=== PATIENT | male | born 1950 | race Caucasian/White ===

== ENCOUNTER 2017-03-28 07:19 | Emergency (ER) | payer BC, OTHER ==
[~2017-03-28] VITALS: Ht 180.3 cm; Wt 86.5 kg
[~2017-03-28 07:19] MED LIST: ASCO10003 PO; ATEN50TA8 PO; B-COTAB53 PO; CALC625T PO; CHOL1TAB42 PO; CIPR-255 PO; CYAN100020 PO; ECHI1CAP PO; GOLD1CAP PO; HYDR25TA4 PO; LORA10TA51 PO; LOSA50TA6 PO; MELO7.5T5 PO; MISCCAP80 PO; MULT-580 PO; MULTTAB58 PO; OMEG10007 PO; OMEP40CA PO; TRAM-10 PO; ZINC1TAB4 PO; [UNRECOGNIZED DRUG - CODE] PO
[2017-03-28 07:25] VITALS: TEMP 37.3; Ht 180.3 cm; Wt 86.5 kg
[2017-03-28] MEDS ORDERED: LOSA100T65 PO (07:47)
[2017-03-28] MEDS ORDERED: OMEP20TA PO (07:47)
[2017-03-28] MEDS ORDERED: MELO15TA4 PO (07:47)
[2017-03-28] MEDS ORDERED: ONDANSETRON INJ 2 MG/ML 2 ML VIAL IV STA (08:05)
[2017-03-28] MEDS ORDERED: SODIUM CHLORIDE 0.9% 1000ML 1,000 ML IV STA (08:05)
[2017-03-28] MEDS ORDERED: MoRPHine SULFATE 10 MG/ML CARP/VIAL IV PRN (08:15)
[2017-03-28] MEDS ORDERED: OPTIRAY 320 IV PRN (08:15)
[2017-03-28 08:29] LABS: MANUAL MICROSCOPIC REQUIRED? NO; URINE APPEARANCE CLEAR (CLEAR); URINE BILIRUBIN NEG (NEG); URINE COLOR YELLOW; URINE NITRITE NEG (NEG); UROBILINOGEN NEG (NEG)
[2017-03-28 08:30] LABS: REVIEW REQ? NO
[2017-03-28 08:33] LABS: BUN/CREATININE RATIO 15.5 (10-20); CALCIUM 9.1 mg/dl (8.5-10.1); CREATININE 1.1 mg/dl (0.60-1.40); POTASSIUM 4.1 mmol/L (3.5-5.1)
[2017-03-28 08:35] LABS: BASO % 0.6 %; BASO ABS # 0.04 K/uL (0-0.2); COMPLETE YES; EOS % 0.9 %; HEMATOCRIT 47.2 % (42-52); IG% 0.1 %; LYMPH % 15.5 %; LYMPH ABS # 1.07 K/uL (1.2-3.4); MEAN CELL VOLUME 86.8 fL (80-100); MEAN CORPUSCULAR HGB CONC 34.5 g/dl (32-36); MEAN PLATELET VOLUME 12.1 fL (7.4-10.4); MONO % 8.3 %; NEUT % 74.6 %; PLATELET COUNT 138 K/uL (130-400); RED BLOOD COUNT 5.44 M/uL (4.7-6.1)
[2017-03-28 10:26] VITALS: PULSE 64; O2SAT 95
--- NOTE | 2017-03-28 10:56 | DIAGNOSTIC IMAGING REPORT ---
ABD/PELVIS IV AND ORAL CONT HISTORY: 66 years Male diffuse abdominal pain with blood in stool. COMPARISON: CT 07/16/2016 TECHNIQUE: Multiple axial CT images of the abdomen and pelvis were obtained following the intravenous ministration of 94 mL Optiray 320. A dose lowering technique was used consistent with the principles of ALARA. Oral contrast also used. FINDINGS: There is minimal dependent subsegmental atelectasis within the lung bases. No pneumoperitoneum is identified. The inferior cardiac chambers are unremarkable. 4 mm low attenuating lesion of the hepatic dome is too small to characterize however appears unchanged from comparison suggesting benign etiology such as a hepatic cyst. The gallbladder, spleen and adrenal glands appear normal. There is moderate to severe pancreatic atrophy. 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 There is atherosclerotic plaquing at the origin of the celiac trunk which results in approximately 50% stenosis. No bulky retroperitoneal adenopathy. 10 mm cyst of the interpolar left kidney is seen with thin rim of peripheral calcification. Previously noted calculus within a distal left ureterocele is no longer identified. Urinary bladder is collapsed. Prostate is enlarged measuring up to 5.1 cm transversely. There is no bowel obstruction. Sigmoid diverticulosis is noted with mild inflammatory changes seen surrounding a diverticulum of the mid sigmoid colon nicely seen on image 351 of the axial series. Additionally there is mild wall thickening of the sigmoid colon within this region. No associated perforation or abscess is identified. Appendix is normal. Bones appear intact. Intervertebral disc space narrowing with posterior disc osteophyte complex formation noted at L5-S1. IMPRESSION: 1. Findings compatible with mild acute uncomplicated sigmoid diverticulitis. 2. Prostamegaly. 3. 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 4. Additional incidental findings as above. The above report was generated using voice recognition software. It may contain grammatical, syntax or spelling errors. Electronically signed by: Richard Guerra M.D. 03/28/2017 10:55 AM Dictated Date/Time: 03/28/2017 10:46 AM
[2017-03-28 11:45] VITALS: BP 126/83
[2017-03-28] MEDS ORDERED: CIPR1TAB10 PO (12:53)
[2017-03-28] MEDS ORDERED: METR-163 PO (12:53)
[2017-03-28] MEDS ORDERED: HYDR-5688 PO (12:53)
--- NOTE | 2017-03-30 10:36 | EMERGENCY ROOM VISIT NOTE ---
ED Visit Note First contact with patient: 07:47 Chief Complaint: Abdominal pain. History of Present Illness: Mr. Linder is a 66 year-old white male who ambulates into the ED complaining of bilateral lower quadrant abdominal pain. Historically patient reports GERD, gastric ulcer and status post umbilical hernia repair Patient reports a acute onset of right lateral lower quadrant abdominal pain that started approximately 13 ago. Since that time the pain has been constant but has waxed and waned in intensity. The pain is currently described as sharp with left-sided prominence. He rates his discomfort 8/10. The pain is radiating around the sides of the abdomen and into the lower back bilaterally. The pain worsens palpation, cough, ambulation and flexion at the waist. He reports mild relief when he is sitting still in a semireclined position. He has not taken any medications for pain prior to arrival at the hospital. This morning his bowel movement he noted small flecks of bright red blood blood in his formed stool and on the toilet tissue after wiping. Patient denies fevers, chills, sweats, skin eruptions, skin color changes, upper respiratory tract symptoms, shortness of breath, chest pain, nausea, vomiting, diarrhea, constipation, black/tarry stools, urinary symptoms, hematuria; patient does report he has chronic back pain but it is not exacerbated since the onset of the symptoms. Review of Systems: As noted above in history of present illness. All body systems were reviewed and found to be negative as noted above. Past Medical History: As previously noted, hypertension, bronchitis, kidney stones, benign prostatic hypertrophy, osteoarthritis and status post TURP, kidney stone extraction, tonsillectomy, and specificity of rotator cuff surgery and coccyx surgery. Current Medications: Allergies to Medications: Amitriptyline, erythromycin, ethanol, finasteride. Social History: Patient is currently employed; he lives alone and feels safe in his home environment; he denies tobacco use and admits to social alcohol use. Physical Examination: Vital Signs: Date Time Temp Pulse Resp B/P (MAP) Pulse Ox O2 Delivery O2 Flow Rate FiO2 03/28/17 11:45 126/83 03/28/17 10:26 64 95 03/28/17 10:21 69 96 03/28/17 10:16 65 95 03/28/17 10:11 125/75 03/28/17 08:39 69 94 03/28/17 08:34 66 96 03/28/17 08:31 136/83 03/28/17 08:29 72 92 03/28/17 08:27 73 03/28/17 08:24 73 16 146/89 96 03/28/17 08:24 72 95 03/28/17 08:23 146/89 03/28/17 07:25 37.3 76 18 145/93 97 Room Air GENERAL: 66-year-old male in mild distress due to pain, nontoxic-appearing, afebrile and hemodynamically stable. NEUROLOGICAL: Awake, alert and oriented to person, place and time. Answering questions appropriately and following commands. Normal gait. Good hand eye coordination. SKIN: Warm, dry and pink. No soft tissue eruptions or trauma noted. HEENT: Atraumatic and normocephalic. PERRLA. Sclera white and conjunctiva pink. Oral cavity moist and pink. Pharynx is nonerythematous or edematous. Speech normal. No lymphadenopathy. Trachea midline. No jugular venous distention. BACK: No tenderness over the bony spine. No CVA tenderness. THORAX: Lungs sounds are clear to auscultation and equal bilaterally with symmetrical chest wall. No wheezing, rales or rhonchi. No crepitus, tenderness , subcutaneous air or deformities noted. HEART: Regular rate and rhythm. No gallops, rubs or murmurs are appreciated. ABDOMEN: Flat and soft with moderate tenderness and guarding in the right lower and left lower quadrants. Positive bowel sounds in all quadrants. No guarding , rigidity or organomegaly. RECTAL: No external tags or hemorrhoids. Normal rectal tone. Palpable internal hemorrhoid at the 6 o'clock position. No fecal impaction. Prostrate was enlarged but nontender. Heme-negative stools. EXTREMITIES: Moves all extremities well on command and with purpose. All distal neurovascular statuses are intact and equal bilaterally. ED Course: Patient is assessed as noted above. Patient's medications were reviewed. Laboratory Testing: Test 03/28/17 07:40 03/28/17 08:20 Range/Units White Blood Count 6.90 4.8-10.8 K/uL Red Blood Count 5.44 4.7-6.1 M/uL Hemoglobin 16.3 14.0-18.0 g/dL Hematocrit 47.2 42-52 % Mean Corpuscular Volume 86.8 80-100 fL Mean Corpuscular Hemoglobin 30.0 25-34 pg Mean Corpuscular Hemoglobin Concent 34.5 32-36 g/dl Platelet Count 138 130-400 K/uL Mean Platelet Volume 12.1 7.4-10.4 fL Neutrophils (%) (Auto) 74.6 % Lymphocytes (%) (Auto) 15.5 % Monocytes (%) (Auto) 8.3 % Eosinophils (%) (Auto) 0.9 % Basophils (%) (Auto) 0.6 % Neutrophils # (Auto) 5.15 1.4-6.5 K/uL Lymphocytes # (Auto) 1.07 1.2-3.4 K/uL Monocytes # (Auto) 0.57 0.11-0.59 K/uL Eosinophils # (Auto) 0.06 0-0.5 K/uL Basophils # (Auto) 0.04 0-0.2 K/uL RDW Standard Deviation 40.6 36.4-46.3 fL RDW Coefficient of Variation 12.8 11.5-14.5 % Immature Granulocyte % (Auto) 0.1 % Immature Granulocyte # (Auto) 0.01 0.00-0.02 K/uL Sodium Level 141 136-145 mmol/L Potassium Level 4.1 3.5-5.1 mmol/L Chloride Level 105 98-107 mmol/L Carbon Dioxide Level 32 21-32 mmol/L Anion Gap 4.0 3-11 mmol/L Blood Urea Nitrogen 17 7-18 mg/dl Creatinine 1.10 0.60-1.40 mg/dl Est Creatinine Clear Calc Drug Dose 70.3 ml/min Estimated GFR () 80.6 Estimated GFR (Non- 69.6 BUN/Creatinine Ratio 15.5 10-20 Random Glucose 122 70-99 mg/dl Calcium Level 9.1 8.5-10.1 mg/dl Total Bilirubin 0.9 0.2-1 mg/dl Direct Bilirubin 0.2 0-0.2 mg/dl Aspartate Amino Transf (AST/SGOT) 15 15-37 U/L Alanine Aminotransferase (ALT/SGPT) 34 12-78 U/L Alkaline Phosphatase 77 45-117 U/L Total Protein 7.4 6.4-8.2 gm/dl Albumin 3.9 3.4-5.0 gm/dl Lipase 82 73-393 U/L Urine Color YELLOW Urine Appearance CLEAR CLEAR Urine pH 7.0 4.5-7.5 Urine Specific [place] 1.010 1.000-1.030 Urine Protein NEG NEG Urine Glucose (UA) NEG NEG Urine Ketones NEG NEG Urine Occult Blood NEG NEG Urine Nitrite NEG NEG Urine Bilirubin NEG NEG Urine Urobilinogen NEG NEG Urine Leukocyte Esterase NEG NEG Contrast Abdominal/Pelvic CT: Were reviewed by myself and read by the radiologist showing mild acute uncomplicated sigmoid diverticulitis, prostamegaly, unchanged peripheral calcified aneurysm dilatation of the proximal SMA at 1.2 cm, mild dependent atelectasis within the lung bases hepatic dome lesion too small to characterize, atherosclerotic plaque at the origin of the celiac rock which results in approximately a 50% stenosis, 10 mm cyst on the inferior pole the left kidney with peripheral rim calcification. Patient was hydrated with normal saline and patient received 6 mg of morphine IV for pain and 4 mg of Zofran IV. Patient was reassessed multiple times during his stay in the emergency department. Patient's case was reviewed with Dr. Pierce; we agreed on diagnostic approach, treatment, disposition and plan. Patient's request I did contact his PCP and review the case with him specifically the prescription of antibiotics and narcotics and we agreed on patient care. Patient was educated about today's findings and instructed on treatment plan; he verbalizes understanding and agreement with this plan. Clinical Impression: Acute diverticulitis. Decision-Making: Initially my differential diagnosis I considered diverticulitis , perforated viscus, constipation, acute appendicitis, cystitis and other causes. Disposition: Patient discharged home in stable condition; prior to departure he was reassessed and subjectively reported he was pain and symptom-free. Plan: Patient was prescribed ciprofloxacin, Flagyl and [place] and instructed on their use; patient's name was run through the state database and no red flags are noted and patient was given appropriate narcotic precautions. Patient was encouraged to follow-up with personal physician for recheck. Patient was encouraged return the ED for worsening symptoms, fevers, bloody stools or any new/concerning symptoms.
== END 2017-03-28 13:05 | disposition home or self-care (01) ==
LOC: C.EDB 07:19
DX: K57.92 Diverticulitis of intestine, part unspecified, without perforation or abscess without bleeding (principal); K21.9 Gastro-esophageal reflux disease without esophagitis; M54.9 Dorsalgia, unspecified; G89.29 Other chronic pain; I10 Essential (primary) hypertension; N40.0 Benign prostatic hyperplasia without lower urinary tract symptoms; Z87.442 Personal history of urinary calculi; M19.90 Unspecified osteoarthritis, unspecified site; I72.8 Aneurysm of other specified arteries; N28.1 Cyst of kidney, acquired

== ENCOUNTER → 2017-09-20 | Outpatient (CLI) | payer OTHER, MEDICARE ==
[~2017-09-20] MED LIST changes: -B-COTAB53 PO; -CALC625T PO; -CIPR-255 PO; +HYDR-5688 PO; +LOSA100T65 PO; -LOSA50TA6 PO; +MELO15TA4 PO; -MELO7.5T5 PO; +OMEP20TA PO; -OMEP40CA PO
--- NOTE | 2017-09-20 13:43 | DIAGNOSTIC IMAGING REPORT ---
KUB CLINICAL HISTORY: N20.0 [id number] COMPARISON STUDY: 10/08/2012 FINDINGS: There is no pathologic bowel dilatation. There are no calcifications suspicious for renal calculi. There is a stable left pelvic basin calcification likely representing a phlebolith. The 16 mm calcification which previously projected over the bladder is no longer visualized IMPRESSION: 1. No urinary tract calculi identified. Electronically signed by: Stiven Toledo M.D. 09/20/2017 1:41 PM Dictated Date/Time: 09/20/2017 1:41 PM
== END | disposition home or self-care (01) ==
LOC: C.RAD 13:09
PROVIDERS: ATTEND Nurse Practitioner Adult Health
DX: R31.9 Hematuria, unspecified (principal); Z87.442 Personal history of urinary calculi

== ENCOUNTER → 2018-04-23 | Outpatient (CLI) | payer OTHER, MEDICARE ==
[~2018-04-23] MED LIST changes: -HYDR-5688 PO; +MELO-84 PO; -MELO15TA4 PO
== END | disposition home or self-care (01) ==
LOC: C.LABSPEC 17:37
PROVIDERS: ATTEND Urology
DX: N20.0 Calculus of kidney (principal)

== ENCOUNTER 2018-11-24 10:44 | Inpatient (IN) ==
--- NOTE | 2018-11-18 09:39 | Anesthesiology Consultation ---
Date of Service November 18, 2018 Assessment & Plan Chart Review Chart Review: Acceptable Risk for Surgery (pending K level AM DOS) and Patient NOT seen in Pre Admission Testing Patient encouraged to increased dietary intake of potassium rich foods (bananas, spinach, broccoli, citrus fruits), between now and surgery date. CHECK K+ STAT AM DOS. History Surgery Operation Date: 11/24/18 12:10 Proposed Procedures p Left Shoulder Arthroscopy with Subacromial Decompression, Open Bicep Tenodesis, Open Excision Ganglion - Eliel Alexander MD Height/Weight Height: 5 ft 11 in Weight: 85.275 kg Allergies Allergy/AdvReac Type Severity Reaction Status Date / Time amitriptyline Allergy Unknown palpitation Verified 10/31/18 10:04 s erythromycin base Allergy Rash Verified 10/31/18 10:04 [From T-Stat] ethyl alcohol [From T-Stat] Allergy Rash Verified 10/31/18 10:04 finasteride AdvReac Unknown painful Verified 10/31/18 10:04 gynecomastia Medications Home Medications Medication Instructions Recorded Confirmed Last Taken Probiotic 1 tab PO QAM 10/31/18 10/31/18 Unknown amoxicillin 500 mg PO DAILY PRN 10/31/18 10/31/18 Unknown ascorbic acid (vitamin C) 1 g PO QAM 10/31/18 10/31/18 Unknown atenolol 50 mg PO QAM 10/31/18 10/31/18 Unknown biotin 1 mg PO Q OTHER DAY 10/31/18 10/31/18 Unknown cholecalciferol (vitamin D3) 5,000 unit PO QAM 10/31/18 10/31/18 Unknown [Vitamin D3] cyanocobalamin (vitamin B-12) 2,500 mcg SUBLINGUAL QAM 10/31/18 10/31/18 Unknown [Vitamin B-12] dexamethasone 0.5 mg PO DAILY PRN 10/31/18 10/31/18 Unknown echinacea 500 mg PO QAM 10/31/18 10/31/18 Unknown garlic 2 cap PO QAM 10/31/18 10/31/18 Unknown goldenseal 325 mg PO QAM 10/31/18 10/31/18 Unknown hydrochlorothiazide 25 mg PO QAM 10/31/18 10/31/18 Unknown lidocaine HCl 1 dose pk PO DAILY PRN 10/31/18 10/31/18 Unknown loratadine 10 mg PO QAM 10/31/18 10/31/18 Unknown losartan 100 mg PO QAM 10/31/18 10/31/18 Unknown meloxicam 15 mg PO QAM PRN 10/31/18 10/31/18 Unknown multivitamin with minerals 1 tab PO Q OTHER DAY 10/31/18 10/31/18 Unknown omega [id number] oil [Fish Oil] 1 cap PO QAM 10/31/18 10/31/18 Unknown omeprazole 40 mg PO BID 10/31/18 10/31/18 Unknown tramadol 1 - 2 tab PO DAILY PRN 10/31/18 10/31/18 Unknown zinc 100 mg PO QAM 10/31/18 10/31/18 Unknown Past Medical History Medical History Burning mouth syndrome Chronic back pain Diverticulosis GERD (gastroesophageal reflux disease) Hearing deficit [place] Hypertension Kidney stones Osteoarthritis Valvular heart disease Mild posterior mitral leaflet prolapse. Mild mitral regurgitation. Past Family History Family History Grandfather (Paternal) Family hx of colon cancer Grandfather (Maternal) Family hx of colon cancer Past Surgical History Surgical History History of arthroscopy of right shoulder History of cardiac cath 2007 - [facility] - cp - no stents/angioplasty History of colonoscopy W/ POLYPECTOMY History of cystoscopy W/ STONE EXTRACTION History of esophagogastroduodenoscopy (EGD) History of hand surgery LEFT History of hemorrhoidectomy History of surgery GREENLIGHT PROCEDURE History of surgery COCCYX SURGERY History of tonsillectomy History of transurethral resection of prostate History of umbilical hernia repair Social History Smoking Status: Former smoker Do You Dip or Chew Tobacco: No Smoking End Date: QUIT 1974 Hx Alcohol Use: Yes Alcohol type: beer, wine and hard liquor alcohol intake frequency: holidays/special occasions only Hx Substance Use: No substance use type: does not use Testing Electrocardiogram Date: 11/04/18 Findings: + NSR @ (79) NSIVCD. NS ST abnormality. No significant change from 12/27/15 EKG. Stress Test Date: 07/27/16 Type: exercise Resting EF: 55-60% The examination is adequate to evaluate the referral indication. The stress echo is negative for inducible ischemia. Blood pressure response to exercise was hypertensive. The stress test was terminated due to dyspnea. The left ventricular cavity size is normal. The LV wall thickness is borderline increased (concentric). There is mild posterior mitral leaflet prolapse. Mild mitral regurgitation is present. The mitral regurgitation jet is wall impinging directed behind the anterior mitral valve leaflet. Laboratory Results Laboratory Tests 11/04/18 11/04/18 08:18 08:18 WBC 6.69 Hgb 15.4 Hct 44.3 Plt Count 138 Sodium 140 Potassium 3.1 L Chloride 103 Carbon Dioxide 31 BUN 16 Creatinine 1.03 Glucose 103 H
--- NOTE | 2018-11-23 16:16 | History and Physical Report ---
DATE OF ADMISSION: 11/24/2018 CHIEF COMPLAINT: Chronic left shoulder pain. HISTORY OF PRESENT ILLNESS: This is a 68-year-old male patient of Dr. Alexander'ivan complaining of chronic left shoulder pain, longstanding, now progressively getting worse. He has failed conservative treatment including multiple intra-articular injections and [id number] medications. An MRI has confirmed biceps tendinopathy, impingement and a ganglion cyst in the bicipital groove. The patient wished to proceed with a left shoulder arthroscopic subacromial decompression and open biceps tenodesis with excision of ganglion cyst. PAST MEDICAL HISTORY: Mitral valve prolapse, hypertension, osteoarthritis, spine problems, neck problems, upper back problems, sciatica, acid reflux, dental issues and BPH. SOCIAL HISTORY: A 1 pack per day smoker for 10 years, quit in 1974. He is an occasional drinker. PAST SURGICAL HISTORY: Right shoulder surgery. FAMILY HISTORY: Noncontributory. REVIEW OF SYSTEMS: The patient complains of chronic left shoulder pain and weakness. Otherwise, denies any shortness of breath, chest pain, nausea, vomiting or any other joint complaints. MEDICATIONS: 1. Fish oil 500 mg daily. 2. Multivitamin daily. 3. Tramadol 50 mg as needed. 4. Atenolol 50 mg daily. 5. Meloxicam 15 mg daily. 6. Vitamin D3 5000 units daily. 7. Garlic 1000 mg 2 capsules daily. 8. Zinc gluconate 100 mg daily. 9. Probiotic daily. 10. Amoxicillin 500 mg 4 tablets prior to dental work only. 11. Vitamin C 1000 mg daily. 12. Vitamin B12 2500 mcg daily. 13. Dexamethasone 0.5 mL oral elixir 5 mL p.o. twice daily. 14. Echinacea 500 mg daily. 15. Goldenseal 325 mg daily. 16. Hydrochlorothiazide 25 mg daily. 17. Lidocaine viscous 2% mucosal solution 5 mL orally p.r.n. pain. 18. Claritin 10 mg daily. 19. Losartan 100 mg daily. 20. Omeprazole 40 mg twice daily. 21. Triamcinolone 0.1% dental paste apply to mucous membranes 2-3 times daily to affected area after meals. ALLERGIES: INCLUDE T-STAT AND AMITRIPTYLINE. PHYSICAL EXAMINATION: GENERAL: Well-developed, well-nourished 68-year-old male in no acute distress. He is alert and oriented x3 and pleasant. HEENT: Normocephalic, atraumatic. Extraocular motions are intact. Pupils are equal and reactive to light. HEART: Regular rate and rhythm, no murmurs. LUNGS: Clear. ABDOMEN: Soft, nontender, bowel sounds present. EXTREMITIES: Left shoulder reveals he has full range of motion with pain and crepitation. He has positive impingement maneuvering. He has positive Speed's and positive [place]'s test. He has 4+/5 strength again with pain and crepitation. NEUROLOGICAL: Neurovascularly, he is intact in his left upper extremity. DIAGNOSES: Left shoulder impingement, biceps tendinopathy and ganglion cyst. He also has a history of mitral valve prolapse, hypertension, osteoarthritis, spine problems, neck problems, upper back problems, sciatica, acid reflux, dental issues and benign prostatic hypertrophy. PLAN: The patient was advised of his diagnosis. Indications, risks, benefits, postop course have all been reviewed. The patient wishes to proceed with a left arthroscopic shoulder subacromial decompression and then an open biceps tenodesis with excision ganglion cyst. Necessary consent forms, preoperative testing and clearances will be obtained.
[~2018-11-24 10:44] MED LIST changes: -ASCO10003 PO; -ATEN50TA8 PO; +CEFAZOLIN 2000MG 2,000 MG/15 ML SYR IV SCH; -CHOL1TAB42 PO; -CYAN100020 PO; -ECHI1CAP PO; +EPINEPHrine INJ 1 MG/ML AMP ONE; -GOLD1CAP PO; -HYDR25TA4 PO; -LORA10TA51 PO; -LOSA100T65 PO; +LR 15ML/HR IV SCH; -MELO-84 PO; -MISCCAP80 PO; -MULT-580 PO; -MULTTAB58 PO; -OMEG10007 PO; -OMEP20TA PO; +ROPIVACAINE 0.5% 5 MG/ML 30 ML VIAL ONE; -TRAM-10 PO; -ZINC1TAB4 PO; -[UNRECOGNIZED DRUG - CODE] PO
--- NOTE | 2018-11-24 11:46 | History & Physical Bridge Note ---
Date of Service November 24, 2018 History & Physical Bridge Note I have examined the patient, reviewed the History & Physical and in the interval since the performance of the History & Physical I have noted the following changes of clinical significance: no changes noted
[2018-11-24] MEDS ORDERED: ePHEDrine sulfate 50 MG/ML AMP IV PRN (11:56)
[2018-11-24] MEDS ORDERED: fentaNYL citrate 100 MCG/2 ML VIAL IV PRN (11:56)
[2018-11-24] MEDS ORDERED: MEPERIDINE HCL 25 MG/ML CARP IV PRN (11:56)
[2018-11-24] MEDS ORDERED: PHENYLEPHRINE 100MCG/ML 5ML SYR IV PRN (11:56)
[2018-11-24] MEDS ORDERED: ONDANSETRON INJ 2 MG/ML 2 ML VIAL IV PRN ×2 (11:56→17:10)
[2018-11-24] MEDS ORDERED: LABETALOL HCL IV 5 MG/ML 20ML IV PRN (11:56)
[2018-11-24] MEDS ORDERED: ATROPINE SULFATE 0.1 MG/ML 10ML SYR IV PRN (11:56)
[2018-11-24] MEDS ORDERED: HYDROmorphone INJ 1 MG/ML SYRINGE IV PRN (11:56)
[2018-11-24] MEDS ORDERED: EpINEphrine HCL INJ 1 MG/ML 1ML SYRINGE ONE ×2 (11:58→14:39)
[2018-11-24] MEDS ORDERED: fentaNYL citrate 100 MCG/2 ML VIAL ONE (12:03)
[2018-11-24] MEDS ORDERED: MIDAZOLAM HCL 1 MG/ML 2ML VIAL ONE (12:04)
[2018-11-24] MEDS ORDERED: LIDOCAINE HCL 2% 2 ML VIAL/AMP(20MG/ML) INFIL ONE (12:06)
[2018-11-24] MEDS ORDERED: PROPOFOL IV EMULSION 10 MG/ML 20 ML VIAL IV ONE (12:06)
[2018-11-24] MEDS ORDERED: ROPIVACAINE 0.5% 5 MG/ML 30 ML VIAL ONE (13:05)
[2018-11-24] MEDS ORDERED: DEXAMETHASONE SOD INJ 4 MG/ML VIAL ONE (13:30)
[2018-11-24] MEDS ORDERED: ONDANSETRON INJ 2 MG/ML 2 ML VIAL ONE (13:31)
[2018-11-24] MEDS ORDERED: ePHEDrine sulfate 50 MG/ML SYR ONE (13:46)
--- NOTE | 2018-11-24 16:27 | Anesthesiology Progress Note ---
Date of Service November 24, 2018 Anesthesia Post Procedure Vital Signs Vital Signs: Temp Pulse Pulse Resp BP Pulse Ox 11/24/18 16:10 80 13 160/98 H 99 11/24/18 16:00 95 H 18 159/99 H 98 11/24/18 15:52 36.2 C L 87 13 168/110 H 97 11/24/18 11:29 36.8 C 67 20 148/93 H 97 Notes Mental Status: alert / awake / arousable Patient Amnestic to Procedure: Yes Nausea / Vomiting: adequately controlled Pain: adequately controlled Airway Patency, RR, SpO2: stable & adequate BP & HR: stable & adequate Hydration State: stable & adequate Anesthetic Complications: no major complications apparent Notes: Block working well in pacu
[2018-11-24] MEDS ORDERED: BISACODYL 10 MG SUPP PR PRN (17:10)
[2018-11-24] MEDS ORDERED: NALOXONE HCL 0.4 MG/1 ML VIAL/CARP IV PRN (17:10)
[2018-11-24] MEDS ORDERED: LIDOCAINE HCL VISCOUS SOLN 2% 15 ML UDC PO PRN (17:10)
[2018-11-24] MEDS ORDERED: MAGNESIUM HYDROXIDE SUSP 30 ML UDC PO PRN (17:10)
[2018-11-24] MEDS ORDERED: HYDROmorphone INJ 0.5 MG/0.5 ML SYR IV PRN (17:10)
[2018-11-24] MEDS ORDERED: dexAMETHasone 2 MG/20 ML UDP PO PRN (17:10)
[2018-11-24] MEDS: OXYCODONE HCL IR 5 MG TAB (IMMEDIATE RELEASE) PO PRN ×2 (18:28→19:14)
[2018-11-24] MEDS: DOCUSATE SODIUM 100 MG CAP PO SCH (20:14)
[2018-11-24] MEDS: SENNA 8.6 MG TAB PO SCH (20:14)
[2018-11-24] MEDS: PANTOprazole 40 MG TAB PO SCH (20:34)
[2018-11-24] MEDS: ACETAMINOPHEN 500 MG TAB PO SCH (21:24)
[2018-11-24] MEDS: CEFAZOLIN 2000MG 2,000 MG/15 ML SYR IV SCH (21:51)
[2018-11-24] MEDS: SODIUM CHLORIDE 0.9% 1000ML 1,000 ML IV SCH (22:01)
--- NOTE | 2018-11-25 01:44 | Operative Report ---
DATE OF OPERATION: 11/24/2018 INDICATION FOR PROCEDURE: The patient is a 68-year-old male with chronic left shoulder pain, failed conservative management. 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 He has some rotator cuff tendinopathy, but no tear. On MRI, he has significant biceps tenosynovitis and a large ganglion cyst adjacent to the biceps tendon in the anterior shoulder area. PREOPERATIVE DIAGNOSES: Chronic left shoulder pain, subacromial impingement, biceps tendinopathy and ganglion cyst adjacent to the biceps tendon sheath of left shoulder. POSTOPERATIVE DIAGNOSES: Left shoulder rotator cuff tendinopathy, partial tear of supraspinatus and subscapularis with biceps tendinopathy, biceps tenosynovitis and ganglion cyst of tendon sheath, biceps tendon and subacromial impingement, subacromial bursitis, degenerative tear of glenoid labrum and chondrocalcinosis of the AC joint, glenohumeral joint with calcium deposits in the superior labral area. PROCEDURE: Arthroscopy of the left shoulder with arthroscopic subacromial decompression, distal clavicle excision and debridement including subacromial bursa and rotator cuff, calcium deposits of subacromial bursa and a tenotomy of the biceps, followed by an open deltopectoral excision of the ganglion of tendon sheath and biceps tenodesis with soft tissue transferred to the conjoined tendon including biceps tenosynovectomy. SURGEON: Eliel Alexander MD MARKING STITCHER: Adis Smyth PA-C ANESTHESIA: Regional block and general. OPERATIVE PROCEDURE: The patient was taken to the operating room, anesthetized regional block and general anesthetic. He was placed in a 70-degree beachchair position [facility]. He had some kyphosis and we had to do some additional padding under his head. There is head and neck were secured to the table with the usual devices and then his lower extremities were all padded. His left upper extremity exam demonstrated good passive range of motion with a prominent AC joint. His left shoulder was then sterilely prepped and draped with ChloraPrep in usual sterile fashion. Then arthroscopy was initiated with a posterior arthroscopy portal in the soft spot, anterior portal in the rotator interval and to the AC joint, lateral portal in subacromial space. Intra-articular findings demonstrated he had some calcium deposits under the superior labrum, had some fraying and superior labrum with some tenosynovitis of the biceps tendon attachment to the labrum. He had some thickening of the biceps, but no significant fraying of the biceps in this area. The anterior inferior labrum had a small tear with some frayed anterior labrum tissue. He had some synovitis over the anterior labrum in the rotator interval area. The supraspinatus had a partial tear of the rotator cuff above the entire surface of the supraspinatus but it was about 4 mm deep. There were some undersurface flaps noted. The subscapularis had similar tendinopathy and partial tearing of the subscapularis tendon. There was no marked detachment of the tendon from the lesser tuberosity. The glenoid and humeral articular surfaces were good. In the subacromial space was marked chronic subacromial bursitis intact bursal surface of the rotator cuff. There was a significant impingement from the inferior AC joint spurs, hypertrophic AC joint arthritis and a type 2-3 acromion process anteriorly. Attention was first taken to the glenohumeral joint. I debrided the calcium deposit debrided the frayed areas of the glenoid labrum, debrided the undersurface tear of the supraspinatus, debrided the undersurface tear of the subscapularis, performed a tenotomy of the biceps. We did resect the calcium deposit from the superior labrum. In the subacromial space did a thorough subacromial bursectomy. Decompression was performed using a radiofrequency ablator to release the CA ligament off the spur of the anterior acromion. I ablated the inferior AC joint capsule, exposed 1 cm of distal clavicle and exposed the inferior AC joint spurs. A 5.5 bur was used to plane down the acromion to a type 1 flat shape and resected 1 cm of distal clavicle. I tried to release much of the superior and posterior capsule intact to maintain stability of the AC joint. Then we did a thorough bursectomy of the supraspinatus and infraspinatus. Then, the arthroscope instrumentation was removed and I went ahead and reprepped shoulder with Betadine and then the bed was placed in some Trendelenburg and padded Cabrera stand was brought in for support of the arm. Then, an anterior incision was made through the deltopectoral interval and then skin was incised sharply and subcutaneous flaps were elevated. The flaps were dissected out and retracted laterally with the deltoid. Pectoralis was retracted medially. We suctioned a lot of the edema fluid out and used multiple sponges to dry the wound satisfactorily so we could observe the anatomy. The patient had very massive ganglion cyst. It was about 3 x 2 cm in size. It was right over the biceps tendon sheath. This also had tenosynovitis as well. The biceps tendon sheath was opened up. I did a tenosynovectomy around the biceps and then I carefully dissected out the ganglion cyst so it was completely resected and from the tendon sheath. We did send it as a specimen. Then, the biceps tendon was brought down into the wound. Then we placed a traction suture into the end of the biceps, then did some further debridement of the synovium. Then I went ahead and removed any of the inflamed subscapularis bursa and then with a clear view of the conjoined tendon, we transferred the long head of the biceps to the short head conjoined tendon, biceps tendon. We placed #2 FiberWire sutures, suturing the long head of biceps to the short head conjoined tendon area, taking care not to do any deep stitches to avoid any injury to the musculocutaneous nerve. I placed 3 rows of sutures with very secure repair. The arm was taken through a passive range of motion and biceps tenodesis was secured. The arm was taken through range of motion and there was no impingement of the subscapularis or the rotator cuff. The deltopectoral interval was then allowed to fall back together anatomically. Then we just closed subcutaneous tissues with interrupted 2-0 Vicryl sutures and the skin with maggie and the portal sites with nylon sutures and sterile dressings were applied and sling immobilizer. Estimated blood loss was 15 mL. The complications were none. Specimen was a ganglion cyst and the patient tolerated the procedure well. DONNY Lim was my first assisted throughout, functioned as surgical supply assistant throughout the procedure participating in arm positioning, soft tissue retraction, performed the subcutaneous and skin closure, sling application and will participate in the postoperative care of the patient. I attest to the content of the Intraoperative Record and any orders documented therein. Any exception s are noted below.
[2018-11-25] MEDS: OXYCODONE HCL IR 5 MG TAB (IMMEDIATE RELEASE) PO PRN ×2 (03:43→15:20)
[2018-11-25] MEDS: ACETAMINOPHEN 500 MG TAB PO SCH ×3 (05:55→21:37)
[2018-11-25] MEDS: CEFAZOLIN 2000MG 2,000 MG/15 ML SYR IV SCH (05:55)
[2018-11-25] MEDS: SODIUM CHLORIDE 0.9% 1000ML 1,000 ML IV SCH (06:03)
--- NOTE | 2018-11-25 08:03 | Anesthesiology Progress Note ---
Date of Service November 25, 2018 Anesthesia Post Procedure Vital Signs Vital Signs: Temp Pulse Pulse Resp BP Pulse Ox 11/25/18 06:49 36.8 C 87 18 112/74 93 11/25/18 03:37 36.7 C 86 16 103/63 94 11/24/18 23:31 36.4 C L 87 16 121/75 93 11/24/18 20:00 36.6 C 87 16 125/70 95 11/24/18 19:00 36.6 C 85 16 119/74 95 11/24/18 18:00 36.9 C 85 16 133/84 93 11/24/18 17:29 36.5 C 78 16 146/84 H 97 11/24/18 16:45 76 12 152/96 H 93 11/24/18 16:30 36.3 C L 77 12 155/95 H 95 11/24/18 16:20 76 19 153/98 H 94 11/24/18 16:10 80 13 160/98 H 99 11/24/18 16:00 95 H 18 159/99 H 98 11/24/18 15:52 36.2 C L 87 13 168/110 H 97 11/24/18 11:29 36.8 C 67 20 148/93 H 97 Notes Mental Status: alert / awake / arousable Patient Amnestic to Procedure: Yes Nausea / Vomiting: adequately controlled Pain: adequately controlled Airway Patency, RR, SpO2: stable & adequate BP & HR: stable & adequate Hydration State: stable & adequate Anesthetic Complications: no major complications apparent and Pt Satisfied with anesthetic care
--- NOTE | 2018-11-25 08:10 | Orthopedic Progress Note ---
Date of Service November 25, 2018 Assessment & Plan (1) Shoulder pain: POD #1, Left shoulder scope, SAD, biceps tenotomy, OPEN biceps tenodesis and ganglion cyst removal. PT/ OT DVT proph- ASA Will Admit for pain control and add Oxycontin 10mg q12 hr. Subjective POD #1, Pain is main issue, states he cant get relief as the nerve block continues to wear off. Denies SOB, CP, N/V. Physical Exam 2 Vital Signs (Past 24 Hours): Last Vital Signs Temp 36.8 C 11/25/18 06:49 Pulse 87 11/25/18 06:49 Resp 18 11/25/18 06:49 BP 112/74 11/25/18 06:49 Pulse Ox 93 11/25/18 06:49 Physical Exam: Left shoulder dressings c/d/i, no drainage, elbow, fingers mobile, sling in tact, A&Ox3.
[2018-11-25] MEDS: DOCUSATE SODIUM 100 MG CAP PO SCH ×2 (08:32→20:43)
[2018-11-25] MEDS: LORATADINE 10 MG TAB PO SCH (08:32)
[2018-11-25] MEDS: MULTIVITAMIN TAB PO SCH (08:33)
[2018-11-25] MEDS: ASPIRIN 81 MG ECTAB PO SCH (08:34)
[2018-11-25] MEDS: PANTOprazole 40 MG TAB PO SCH ×2 (08:34→20:43)
[2018-11-25] MEDS: LOSARTAN POTASSIUM 50 MG TAB PO SCH (08:34)
[2018-11-25] MEDS: ATENOLOL 50 MG TABLET PO SCH (08:34)
[2018-11-25] MEDS: OXYCODONE HCL 10 MG TABCR (OXYCONTIN) PO SCH ×2 (08:37→20:43)
[2018-11-25] MEDS: SENNA 8.6 MG TAB PO SCH (20:43)
[2018-11-26] MEDS: OXYCODONE HCL IR 5 MG TAB (IMMEDIATE RELEASE) PO PRN (04:04)
[2018-11-26] MEDS: ACETAMINOPHEN 500 MG TAB PO SCH (06:07)
[2018-11-26 06:30] VITALS: BP 132/81; TEMP 98.1; O2SAT 95
--- NOTE | 2018-11-26 07:43 | Orthopedic Progress Note ---
Date of Service November 26, 2018 Assessment & Plan (1) Shoulder pain: POD #2, Left shoulder scope, SAD, biceps tenotomy, OPEN biceps tenodesis and ganglion cyst removal. PT/ OT DVT proph- ASA Plan for discharge to home today. Subjective Postop day 2 status post left shoulder arthroscopy with biceps tenodesis and ganglion cyst removal. Patient is sitting up at the bedside eating breakfast. Pain appears to be controlled. He has no overt complaints. Denies shortness of breath, chest pain, lightheadedness. Patient is hoping to go home today. Patient is currently on a pain management contract and we discussed his pain medication options upon discharge. Physical Exam Vital Signs (Past 24 Hours): Last Vital Signs Temp 36.7 C 11/26/18 06:29 Pulse 78 11/26/18 06:29 Resp 16 11/26/18 06:29 BP 132/81 11/26/18 06:29 Pulse Ox 95 11/26/18 06:29 Physical Exam: Incision is benign. Patient has good range of motion of his left wrist and fingers and denies any numbness or tingling in the hand. Sling is in place.
[2018-11-26] MEDS: OXYCODONE HCL 10 MG TABCR (OXYCONTIN) PO SCH (07:48)
[2018-11-26] MEDS: DOCUSATE SODIUM 100 MG CAP PO SCH (07:50)
[2018-11-26] MEDS: LORATADINE 10 MG TAB PO SCH (07:50)
[2018-11-26] MEDS: MULTIVITAMIN TAB PO SCH (07:51)
[2018-11-26] MEDS: LOSARTAN POTASSIUM 50 MG TAB PO SCH (07:53)
[2018-11-26] MEDS: PANTOprazole 40 MG TAB PO SCH (07:53)
[2018-11-26] MEDS: ASPIRIN 81 MG ECTAB PO SCH (07:53)
[2018-11-26] MEDS: ATENOLOL 50 MG TABLET PO SCH (07:53)
[2018-11-26] MEDS ORDERED: CEROVITE ADV FORMULA TAB PO SCH (09:00)
[2018-11-26 09:52] VITALS: PULSE 66
--- NOTE | 2018-11-27 11:34 | Discharge Summary ---
Date of Service December 03, 2018 Discharge Data Procedures Performed Operation Date: 11/24/18 12:20 Actual Procedures p Left Shoulder Arthroscopy with Subacromial Decompression, Distal Clavical Excision, Debridement of rotator cuff rear, calcium deposits and Subacromial Bursa, Open Bicep Tenodesis(Left) - Eliel Alexander MD s Open Excision Ganglion(Left) - Eliel Alexander MD
--- NOTE | 2018-12-02 04:36 | Discharge Summary ---
DISCHARGE DIAGNOSES: Chronic left shoulder rotator cuff tendinopathy, partial tear, supraspinatus and subscapularis with biceps tendinopathy, biceps tenosynovitis and ganglion cyst of the tendon sheath, subacromial bursitis. SECONDARY DIAGNOSES: Mitral valve prolapse, hypertension, history of degenerative spine disease, sciatica, gastroesophageal reflux disease, dental issues and benign prostatic hypertrophy. CONSULTATIONS: None. COMPLICATIONS: None. PROCEDURES: Arthroscopy of the left shoulder with arthroscopic subacromial decompression, distal clavicle excision and debridement including subacromial bursa and right rotator cuff, calcium deposits of subacromial bursa and tenotomy of the biceps, followed by open deltopectoral excision of the ganglion of the tendon sheath and biceps tenodesis with soft tissue transferred to the conjoined tendon including biceps tendon synovectomy by Dr. Alexander on 11/24/2018. BRIEF HISTORY: As dictated in the history and physical. HOSPITAL SUMMARY: The patient was admitted on the above-noted date and had above-noted surgery performed, which he tolerated well. On his first postoperative day, pain control was his main issue and stated he could not get relief and a nerve block was continued to wear off. He denies shortness of breath, chest pain, nausea or vomiting. Vital signs were stable. He was afebrile. Shoulder dressings were clean, dry and intact. He had no drainage. Fingers were mobile. Sling was intact. He was started on PT protocol, OxyContin 10 mg p.o. q. 12 hours was added to his pain regimen and he was remaining stable. By his second postoperative day, his pain appeared to be controlled. He had no overt complaints. Denied shortness of breath, chest pain or lightheadedness. He was hoping to go home. It was noted that he is currently on a pain management contract and we discussed his pain medication options upon discharge. Vital signs were stable. He was afebrile. Incision was benign. He has good range of motion of his left wrist and fingers and denied any numbness or tingling in the hand. A sling was in place. He was continued on his PT protocol and it was felt he could be discharged to home on 11/26/2018. For further review, please see chart. LABORATORY AND X-RAY DATA: As per chart. DISCHARGE INSTRUCTIONS: The patient was discharged home in satisfactory condition on 11/26/2018. Diet: Regular. Activity: Follow shoulder arthroscopy with or without distal clavicle excision instructions and special care instructions as noted. Follow up with Dr. Alexander in 2 weeks. The patient is to call for appointment if one has not been made for you. DISCHARGE MEDICATIONS: Acetaminophen 1000 mg p.o. q. 8 hours, aspirin 81 mg p.o. q.a.m., tramadol 50 mg p.o. q. 4-6 hours p.r.n. Resume home meds as listed and stop taking previous tramadol dosage.
== END 2018-11-26 10:37 | disposition home or self-care (01) | DRG 502 ==
LOC: ASU 10:44 → 3E 16:04

== ENCOUNTER 2022-12-04 12:48 | Observation (INO) ==
--- NOTE | 2022-11-28 14:17 | Anesthesiology Consultation ---
Date of Service November 28, 2022 Assessment & Plan (1) Encounter for pre-operative examination: COVID screening: Per assessment on 11/28: No known COVID-19 positive contacts or current COVID-19 related symptoms. Travel screen negative. Patient vaccinated. At surgeon discretion if preop Covid testing being done. Chart Review Chart Review: Acceptable Risk for Surgery and Patient NOT seen in Pre Admission Testing History Surgery Operation Date: 12/04/22 07:30 Proposed Procedures p TURP (Transurethral Resection Prostate) - Tapan Mooney MD Height/Weight Height: 5 ft 11 in Weight: 80.739 kg Allergies Allergy/AdvReac Type Severity Reaction Status Date / Time amitriptyline Allergy Intermediate heart Verified 11/28/22 12:48 palpitations finasteride AdvReac Intermediate painful Verified 11/28/22 12:48 gynecomastia Medications Home Medications Medication Instructions Recorded Confirmed Last Taken amoxicillin 500 mg tablet 500 mg PO DAILY PRN BEFORE DENTAL 10/31/18 11/28/22 Unknown PROCEDURES garlic 1,000 mg capsule 2 cap PO QAM 10/31/18 11/28/22 12/04/21 hydrochlorothiazide 25 mg tablet 25 mg PO QAM 10/31/18 11/28/22 12/04/21 losartan 100 mg tablet 100 mg PO QAM 10/31/18 11/28/22 12/05/21 06:00 meloxicam 15 mg tablet 15 mg PO DAILY PRN Pain 10/31/18 11/28/22 11/14/21 omega 8-szg-hfr-fish oil 1,000 mg 1 cap PO QAM 10/31/18 11/28/22 12/04/21 (120 mg-180 mg) capsule (Fish Oil) Lactobacillus 40-Bifidobact 1 cap PO QAM 10/05/19 11/28/22 12/04/21 3-S.thermophilus 100 billion cell capsule (Probiotic) ascorbic acid (vitamin C) 500 mg 500 mg PO QAM 05/11/20 11/28/22 12/03/21 tablet (Vitamin C) sucralfate 1 gram tablet 1 g PO QID PRN Acid Reflux 05/11/20 11/28/22 Unknown tramadol 50 mg tablet 50 mg PO Q4 PRN pain 05/11/20 11/28/22 12/05/21 06:00 atenolol 50 mg tablet 50 mg PO QAM 08/18/21 11/28/22 12/05/21 06:00 carboxymethylcellulose sodium 1 % 1 drp ophthalmic (eye) BID 12/04/21 11/28/22 12/05/21 06:00 eye liquid gel drops (Refresh Liquigel) multivitamin 1 tab PO QAM 05/10/22 11/28/22 Unknown aluminum hydrox-magnesium carb 95 15 ml PO DAILY PRN Abdominal Pain 05/22/22 11/28/22 Unknown mg-358 mg/15 mL oral suspension (Gaviscon) calcium polycarbophil 625 mg 1,250 mg PO QAM 05/22/22 11/28/22 Unknown tablet (FiberCon) diclofenac sodium 1 % topical gel 2 g topical QID 05/22/22 11/28/22 Unknown lifitegrast 5 % eye drops in a 1 drp ophthalmic (eye) BID 05/22/22 11/28/22 Unknown dropperette (Xiidra) baclofen 10 mg tablet 10 mg PO HS #90 tabs 11/27/22 11/28/22 Unknown dexlansoprazole 60 mg 60 mg PO Q2D 11/27/22 11/28/22 Unknown capsule,biphase delayed release (Dexilant) cholecalciferol (vitamin D3) 50 6,000 mcg PO QAM 11/28/22 11/28/22 Unknown mcg (2,000 unit) capsule (Vitamin D3) magnesium 500 mg tablet 500 mg PO QAM 11/28/22 11/28/22 Unknown methylsulfonylmethane 1,000 mg 2,000 mg PO QAM 11/28/22 11/28/22 Unknown tablet (MSM) Past Medical History Medical History BPH (benign prostatic hyperplasia) Chronic back pain Diverticulosis Elbow pain R/t elbow tendon (plan for future surgery). will need assistance to move on liter per PAT RN phone interview Gastric artery aneurysm Calcified/surgical intervention not recommended, monitored by [facility] GERD (gastroesophageal reflux disease) Hearing deficit [facility] Hematuria Hypertension Kidney stones Osteoarthritis Peptic ulcer disease hx Valvular heart disease Mild posterior mitral leaflet prolapse, Mild MR per 2016 stress echo Past Family History Family History Grandfather (Paternal) Family hx of colon cancer Grandfather (Maternal) Family hx of colon cancer Brother FHx: bladder cancer Other No family history of adverse response to anesthesia Past Surgical History Surgical History History of arthroscopy of right shoulder History of back surgery removal of tip of coccyx d/t a fracture History of cardiac cath 2007 - no stents History of colonoscopy W/ POLYPECTOMY History of cystoscopy W/ STONE EXTRACTION History of esophagogastroduodenoscopy (EGD) History of hand surgery LEFT History of hemorrhoidectomy History of surgery GREENLIGHT PROCEDURE History of surgery EUS performed 06/03/2020 @ [facility] History of surgery TIF procedure History of tonsillectomy History of transurethral resection of prostate History of umbilical hernia repair S/P arthroscopy of left shoulder S/P epidural steroid injection Social History Smoking Status: Former smoker tobacco type: cigarettes Do You Dip or Chew Tobacco: No Smoking End Date: at age 25 Hx Alcohol Use: Yes Alcohol type: beer, wine and hard liquor alcohol intake frequency: holidays/special occasions only Hx Substance Use: No substance use type: does not use Lab Results Anesthesia Preop Results Results Anesthesia Widget: WBC 5.83 K/ul (4.8-10.8) 11/28/22 Hgb 14.9 g/dl (14.0-18.0) 11/28/22 Hct 43.4 % (42.0-52.0) 11/28/22 Plt 129 K/uL (130-400) L 11/28/22 Na 139 mmol/L (136-145) 11/28/22 K 4.0 mmol/L (3.5-5.1) 11/28/22 Cl 104 mmol/L (98-107) 11/28/22 CO2 30 mmol/L (21-32) 11/28/22 BUN 19 mg/dl (6-23) 11/28/22 Creat 1.10 mg/dl (0.6-1.4) 11/28/22 Glucose Level 107 mg/dl (70-99(Fasting)) H 11/28/22 TSH 1.107 uIu/ml (0.300-4.500) 11/28/22 Testing Laboratory Results 11/23/22 URINE CULTURE- no growth Electrocardiogram Date: 11/23/22 NSR at 72bpm. Minimal voltage criteria for LVH, may be normal variant (R in aVL). Chest X-Ray Date: 11/23/22 FINDINGS: Lung volumes are normal. Lungs are clear. There is no pneumothorax or pleural effusion. Cardiac size is normal. Mediastinal contours are normal. There is no evidence for pulmonary edema. IMPRESSION: No acute cardiopulmonary findings. Stress Test Date: 07/27/16 Type: exercise Resting EF: 55-60% The examination is adequate to evaluate the referral indication. The stress echo is negative for inducible ischemia. Blood pressure response to exercise was hypertensive. The stress test was terminated due to dyspnea. The left ventricular cavity size is normal. The LV wall thickness is borderline increased (concentric). There is mild posterior mitral leaflet prolapse. Mild mitral regurgitation is present. The mitral regurgitation jet is wall impinging directed behind the anterior mitral valve leaflet.
[~2022-12-04 12:48] MED LIST changes: -CEFAZOLIN 2000MG 2,000 MG/15 ML SYR IV SCH; +CIPROFLOXACIN / D5W 400 MG/200 ML BAG IV SCH; -EPINEPHrine INJ 1 MG/ML AMP ONE; -ROPIVACAINE 0.5% 5 MG/ML 30 ML VIAL ONE
[2022-12-04] MEDS ORDERED: ePHEDrine sulfate 50 MG/ML AMP IV PRN (14:03)
[2022-12-04] MEDS ORDERED: ATROPINE SULFATE 0.1 MG/ML 10ML SYR IV PRN (14:03)
[2022-12-04] MEDS ORDERED: ONDANSETRON INJ 2 MG/ML 2 ML VIAL IV PRN (14:03)
--- NOTE | 2022-12-04 15:02 | History & Physical Report ---
Date of Service December 04, 2022 Assessment & Plan (1) Benign prostatic hyperplasia with urinary obstruction: Plan TURP risks, benefits, and expectations reviewed plan for overnight stay History of Present Illness Primary Care Provider: Scotty Locke MD Voiding dysfunction, lateral lobe hypertrophy here for TURP Allergies Allergy/AdvReac Type Severity Reaction Status Date / Time amitriptyline Allergy Intermediate heart Verified 12/04/22 13:17 palpitations finasteride AdvReac Intermediate painful Verified 12/04/22 13:17 gynecomastia Home Medications Medication Instructions Recorded Confirmed Type amoxicillin 500 mg tablet 500 mg PO DAILY PRN BEFORE DENTAL 10/31/18 12/04/22 History PROCEDURES garlic 1,000 mg capsule 2 cap PO QAM 10/31/18 12/04/22 History hydrochlorothiazide 25 mg tablet 25 mg PO QAM 10/31/18 12/04/22 History losartan 100 mg tablet 100 mg PO QAM 10/31/18 12/04/22 History meloxicam 15 mg tablet 15 mg PO DAILY PRN Pain 10/31/18 12/04/22 History omega 1-gxf-qwv-fish oil 1,000 mg 1 cap PO QAM 10/31/18 12/04/22 History (120 mg-180 mg) capsule (Fish Oil) Lactobacillus 40-Bifidobact 1 cap PO QAM 10/05/19 12/04/22 History 3-S.thermophilus 100 billion cell capsule (Probiotic) ascorbic acid (vitamin C) 500 mg 500 mg PO QAM 05/11/20 12/04/22 History tablet (Vitamin C) sucralfate 1 gram tablet 1 g PO QID PRN Acid Reflux 05/11/20 12/04/22 History tramadol 50 mg tablet 50 mg PO Q4 PRN pain 05/11/20 12/04/22 History atenolol 50 mg tablet 50 mg PO QAM 08/18/21 12/04/22 History carboxymethylcellulose sodium 1 % 1 drp ophthalmic (eye) BID 12/04/21 12/04/22 History eye liquid gel drops (Refresh Liquigel) multivitamin 1 tab PO QAM 05/10/22 12/04/22 History aluminum hydrox-magnesium carb 95 15 ml PO DAILY PRN Abdominal Pain 05/22/22 12/04/22 History mg-358 mg/15 mL oral suspension (Gaviscon) calcium polycarbophil 625 mg 1,250 mg PO QAM 05/22/22 12/04/22 History tablet (FiberCon) diclofenac sodium 1 % topical gel 2 g topical QID 05/22/22 12/04/22 History lifitegrast 5 % eye drops in a 1 drp ophthalmic (eye) BID 05/22/22 12/04/22 History dropperette (Xiidra) dexlansoprazole 60 mg 60 mg PO Q2D 11/27/22 12/04/22 History capsule,biphase delayed release (Dexilant) cholecalciferol (vitamin D3) 50 6,000 mcg PO QAM 11/28/22 12/04/22 History mcg (2,000 unit) capsule (Vitamin D3) magnesium 500 mg tablet 500 mg PO QAM 11/28/22 12/04/22 History methylsulfonylmethane 1,000 mg 2,000 mg PO QAM 11/28/22 12/04/22 History tablet (MSM) baclofen 10 mg tablet 10 mg PO HS #90 tabs 12/03/22 12/04/22 Rx vit [id number] D3-calc cit-Zn 3,000 PO DAILY 12/04/22 History Past Med/Surg History Medical History BPH (benign prostatic hyperplasia) Chronic back pain Diverticulosis Elbow pain R/t elbow tendon (plan for future surgery). will need assistance to move on liter per PAT RN phone interview Gastric artery aneurysm Calcified/surgical intervention not recommended, monitored by [facility] vascular GERD (gastroesophageal reflux disease) Hearing deficit [facility] Hematuria Hypertension Kidney stones Osteoarthritis Peptic ulcer disease hx Valvular heart disease Mild posterior mitral leaflet prolapse, Mild MR per 2016 stress echo Surgical History History of arthroscopy of right shoulder History of back surgery removal of tip of coccyx d/t a fracture History of cardiac cath 2007 - no stents History of colonoscopy W/ POLYPECTOMY History of cystoscopy W/ STONE EXTRACTION History of esophagogastroduodenoscopy (EGD) History of hand surgery LEFT History of hemorrhoidectomy History of surgery GREENLIGHT PROCEDURE History of surgery EUS performed 06/03/2020 @ [facility] History of surgery TIF procedure History of tonsillectomy History of transurethral resection of prostate History of umbilical hernia repair S/P arthroscopy of left shoulder S/P epidural steroid injection Family History Grandfather (Paternal) Family hx of colon cancer Grandfather (Maternal) Family hx of colon cancer Brother FHx: bladder cancer Other No family history of adverse response to anesthesia Social History Smoking Status: Former smoker Smoking End Date: at age 25; Second Hand Exposure: No; Do You Dip or Chew Tobacco: No; Tobacco Cessation Education Requested by Patient: No Hx Alcohol Use: Yes Alcohol type: beer, wine and hard liquor Hx Substance Use: No Preferred Language: Turkmen Communication Ability: Effective Art Appraiser Required: No Beliefs That Will Affect Care: None Current Living Situation: Alone Other Information That Helps Us Care for You: No Feels Safe at Home: Yes Safety Concerns: Feels Safe At This Time Assistive Devices: Denture - Upper and Glasses Physical Exam Constitutional: well developed and well nourished Neck: neck nontender Respiratory: normal respiratory effort; no respiratory distress and does not use accessory muscles Cardiovascular: Rate/Rhythm: regular rate Vessels: radial pulses present Extremities: no edema Gastrointestinal (Abdomen): Inspection/Auscultation: abdomen normal to inspection Percussion/Palpation: abdomen soft; abdomen nontender and no guarding Musculoskeletal: Head/Neck/Chest: normocephalic and head atraumatic Extremities: extremities normal to inspection Skin: no rashes and no lesions Trauma: no evidence of skin trauma Neurologic: awake; not obtunded Speech / Cognition: normal speech Motor/Sensory: no tremor Psychiatric: Orientation: alert and oriented x 3 Genitourinary: no CVA tenderness Lymphatic: no lymphadenopathy Results & Data Vital Signs (Past 12 Hours) Vital Signs Temp Pulse Resp BP Pulse Ox O2 Del Method 12/04/22 13:28 37.1 C 71 20 130/75 98 Room Air 12/04/22 13:28 Room Air
[2022-12-04] MEDS ORDERED: MIDAZOLAM HCL 1 MG/ML 2ML VIAL ONE (15:11)
[2022-12-04] MEDS ORDERED: PROPOFOL IV EMULSION 10 MG/ML 20 ML VIAL IV ONE ×2 (15:11→16:11)
[2022-12-04] MEDS ORDERED: LIDOCAINE 2% MPF LOCAL 5 ML VIAL ONE (15:11)
[2022-12-04] MEDS ORDERED: fentaNYL citrate PF 100 MCG/2 ML VIAL ONE (15:11)
[2022-12-04] MEDS ORDERED: FAMOTIDINE/PF 20 MG/2 ML VIAL IV ONE (15:36)
[2022-12-04] MEDS ORDERED: PHENYLEPHRINE HCL 10 MG/ML VIAL ONE (15:51)
[2022-12-04] MEDS ORDERED: DEXAMETHASONE SOD INJ 4 MG/ML VIAL ONE (15:51)
[2022-12-04] MEDS ORDERED: ONDANSETRON INJ 2 MG/ML 2 ML VIAL ONE (15:51)
--- NOTE | 2022-12-04 16:37 | Operative Report ---
PG Post Operative Report Pre & Post Diagnosis Operation Date: 12/04/22 14:40 Pre-Op Diagnosis: Benign Prostatic Hyperplasia with Urinary obstruction Post-Op Diagnosis: Benign Prostatic Hyperplasia with Urinary obstruction I identified the patient and participated in the time-out.: Yes Procedure Operation Date: 12/04/22 14:40 Actual Procedures p Transurethral Resection Prostate(Not Applicable) - Tapan Mooney MD Surgeon Tapan Mooney MD It Support Consultant none Estimated Blood Loss 0 Findings Consistent with Post-Op Diagnosis Specimens none Description of Procedure The patient was identified in the preoperative holding area, appropriate informed consents were reviewed and completed and the patient was transferred to the operative suite. Upon arrival, appropriate antibiotics and anesthesia were administered and the patient was placed in dorsal lithotomy position and prepped and draped in sterile fashion. To begin the case I passed a 27 Dominican resectoscope with 30 degree lens and visual obturator. Inspection revealed a healthy-appearing urethra. Upon entry into the prostatic urethra anatomy was quite distorted with substantial left- sided and the lateral lobe hypertrophy crossing the midline and obstructing the urethra. The bladder neck was quite high and there was some intravesical regrowth more from the right than the left. The bladder itself was heavily trabeculated but healthy in appearance. There were numerous prominent vessels and some active oozing from the surface of the prostate. Ureteral orifices were not readily apparent upon initial entry. Following my full inspection I began resecting the obstructing tissue utilizing a button electrode. I began with the bladder neck and then progressed into the main portion of the prostate. Ultimately I was able to treat the vast majority of the obstructive tissue and you have a widely patent prostatic urethra. Hemostasis was excellent. Of note, his ureteral orifices were identified towards the end of the case after resecting the intravesical portion of the prostate. He is relatively gaping left UO and a normal-appearing right UO. After again confirming meticulous hemostasis, I concluded the case. A 22 Dominican Harrington catheter was placed without difficulty and he was reversed of anesthesia and taken to the recovery room in stable condition. There were no complications. I attest to the content of the Intraoperative Record and any orders documented therein. Any exceptions are noted below.
[2022-12-04] MEDS: fentaNYL citrate PF 100 MCG/2 ML VIAL IV PRN ×2 (16:51→16:56)
--- NOTE | 2022-12-04 17:07 | Anesthesiology Progress Note ---
Date of Service December 04, 2022 Physical Exam Vital Signs: Last Vital Signs Temp 36.6 C 12/04/22 16:40 Pulse 70 12/04/22 17:00 Resp 17 12/04/22 17:00 BP 135/80 12/04/22 17:00 Pulse Ox 94 12/04/22 17:00 O2 Del Method Room Air 12/04/22 17:00 O2 Flow Rate 12 12/04/22 16:50 ENMT: Mouth: no dentition abnormality Thyromental Distance: > or= 3.5 Finger Breadths Mallampati Class: II Neck: normal visual inspection Respiratory: normal respiratory effort Auscultation: lungs clear to auscultation bilaterally Cardiovascular: Rate/Rhythm: regular rate and regular rhythm Psychiatric: Orientation: alert Results & Data ([facility]) Medications Administered Fentanyl Citrate (Fentanyl Citrate Pf 100 Mcg/2 Ml Vial) 25 mcg IV Q5M PRN PRN Reason: PACU Use Only-Pain Stop: 12/04/22 22:04 Last Admin: 12/04/22 16:56 Dose: 25 mcg Documented By: Admin: 12/04/22 16:51 Dose: 25 mcg Documented By: TISHA Lactated Ringer's (Lr) 1,000 mls @ 15 mls/hr IV .Q24H MARILOU Stop: 12/05/22 05:59 Last Infusion: 12/04/22 15:25 Dose: 0 mls/hr Documented By: BJMelida Admin: 12/04/22 13:56 Dose: 15 mls/hr Documented By: JBREANNE Ciprofloxacin (Cipro / D5w) 400 mg in 200 mls @ 100 mls/hr IV PREOP MARILOU Stop: 12/04/22 18:00 Last Admin: 12/04/22 15:25 Dose: 100 mls/hr Documented By: [id number]
[2022-12-04] MEDS ORDERED: traMADol HCL 50 MG TABLET PO PRN (17:29)
[2022-12-04] MEDS ORDERED: diphenhydrAMINE 50 MG/ML VIAL PO PRN (18:14)
[2022-12-04] MEDS: SODIUM CHLORIDE 0.9% 1000ML 1,000 ML IV SCH (18:20)
[2022-12-04] MEDS: oxyCODONE/ACETAMINOPHEN 5mg/325mg TAB PO PRN (20:59)
[2022-12-04] MEDS ORDERED: BACLOFEN 10 MG TAB PO SCH (21:00)
[2022-12-04] MEDS ORDERED: diphenhydrAMINE HCL 25 MG/10 ML UDC PO PRN (22:30)
[2022-12-05] MEDS: oxyCODONE/ACETAMINOPHEN 5mg/325mg TAB PO PRN (00:58)
[2022-12-05] MEDS: SODIUM CHLORIDE 0.9% 1000ML 1,000 ML IV SCH (05:33)
[2022-12-05 06:50] LABS: Basophils # (auto) 0.01 K/uL (0-0.2); Basophils % (auto) 0.1 %; Hematocrit (blood only) 42.4 % (42.0-52.0); Hemoglobin 14.5 g/dl (14.0-18.0); Immature Granulocytes # (auto) 0.04 K/uL (0.01-0.20); Immature Granulocytes % (auto) 0.4 %; Lymphocytes # (auto) 0.49 K/uL (1.2-3.4); Mean Corpuscular Hemoglobin 30.6 pg (25.0-34.0); Mean Corpuscular Hgb Conc 34.2 g/dL (32.0-36.0); Mean Corpuscular Volume 89.5 fL (80.0-100.0); Mean Platelet Volume 12.2 fL (9.4-12.4); Monocytes # (auto) 0.58 K/uL (0.11-0.59); Monocytes % (auto) 5.9 %; Neutrophils # (auto) 8.77 K/uL (1.40-6.50); Neutrophils % (auto) 88.6 %; Platelet Count 142 K/uL (130-400); RDW Coefficient of Variation 12.3 % (11.5-14.5); RDW Standard Deviation 40.4 fL (36.4-46.3); Red Blood Count 4.74 M/uL (4.70-6.10); White Blood Count 9.89 K/ul (4.8-10.8)
[2022-12-05 07:10] LABS: BUN Creatinine Ratio 18.3 (10-20); Calcium 8.6 mg/dl (8.6-10.3); Creatinine Clr Calc Pharmacy 65.2 ml/min; Est GFR (African American) 78.2 ml/min; Est GFR (Non-African American) 67.5 ml/min; Potassium 4.4 mmol/L (3.5-5.1)
--- NOTE | 2022-12-05 08:00 | Urology Progress Note ---
Date of Service December 05, 2022 Assessment & Plan (1) Hematuria, gross: (2) Benign prostatic hyperplasia with urinary obstruction: Plan POD#1 s/p TURP - voiding trial - discharge - 3days of cipro after dc Admission and Anticipated Discharge Date Admission Date: December 04, 2022 Subjective Postop day #1 status post TURP Did very well overnight Minimal discomfort Some blood in the urine but within expected range Physical Exam Constitutional: well developed and well nourished Respiratory: no respiratory distress Cardiovascular: Extremities: no pedal edema Gastrointestinal (Abdomen): Inspection/Auscultation: abdomen normal to inspection Results & Data Vital Signs (Past 12 Hours) Vital Signs Temp Pulse Resp BP Pulse Ox O2 Del Method 12/05/22 07:38 36.7 C 76 16 121/62 95 Room Air 12/05/22 03:56 36.3 C L 78 16 120/65 97 Room Air 12/04/22 21:29 36.4 C L 78 16 114/63 97 Room Air PG Care Time/CCT Total # of Minutes Spent Total Time Spent with Patient: Total time spent is greater than 50% in coordination of care (as documented) at patient's floor/unit and/or counseling patient: Coding Level of Care Code None Diagnoses Hematuria, gross R31.0 Benign prostatic hyperplasia with urinary obstruction N40.1; N13.8
[2022-12-05] MEDS ORDERED: hydroCHLOROthiazide 25 MG TAB PO SCH (09:00)
[2022-12-05] MEDS ORDERED: LOSARTAN POTASSIUM 50 MG TAB PO SCH (09:00)
[2022-12-05] MEDS ORDERED: ATENOLOL 50 MG TABLET PO SCH (09:00)
--- NOTE | 2022-12-05 10:44 | Discharge Summary ---
Date of Service December 05, 2022 Admission HPI Per Admitting Provider Voiding dysfunction, lateral lobe hypertrophy here for TURP Principal Diagnosis BPH Discharge Data Allergies Allergy/AdvReac Type Severity Reaction Status Date / Time amitriptyline Allergy Intermediate heart Verified 12/04/22 13:17 palpitations finasteride AdvReac Intermediate painful Verified 12/04/22 13:17 gynecomastia Procedures Performed Operation Date: 12/04/22 14:40 Actual Procedures p Transurethral Resection Prostate(Not Applicable) - Tapan Mooney MD Hospital Course (1) Benign prostatic hyperplasia with urinary obstruction: Admitted for TURP - tolerated procedure very well - progressed appropriately overnight - passed a voiding trial on the morning of POD#1 - d/c home in stable condition Total Time Total Time Spent Total Time Spent (In Minutes): 15 Discharge Plan Discharge Items Patient Disposition: Home - Self-Care Reason For Visit: Benign Prostatic Hyperplasia with Urinary Discharge Diagnosis: Benign prostatic hyperplasia with urinary obstruction Activity: Per Instructions section Lifting: No more than 25 pounds Bathing Comment: Okay to shower after discharge Exercise/Sports: Gradually increase as tolerated Driving/Machine Use: Resume 1 day after discharge Non-emergency contact: Surgeon and Urologist Call non-emergency contact if: your pain is not controlled and your temperature is above 101 Follow-up/Referrals: Tapan Mooney MD [Physician] - 01/02/23 11:00 am Scotty Locke MD [Primary Care Provider] - Diet: Regular Addtl Attending Provider Instructions: Please take all medications as prescribed and keep all follow-ups as scheduled. Please call our office at [phone] with any questions, concerns or need to reschedule appointments for any reason. We are happy to assist you. Tips for your recovery at home: Dont be alarmed by brownish or reddish blood or clots in your urine. This is a result of the procedure. This may occur off and on for weeks to months after the procedure but should continue to improve. Drink plenty of fluids during the day (enough to keep your urine very light colored). This will help keep a healthy flow of urine. Do not lift >25 lbs until your followup Avoid constipation. Please use a stool softener (Colace) for the first two weeks after your procedure Be sure to finish the antibiotics as prescribed. If you go home with a catheter, please wash tubing where it enters your body twice daily with mild soap (Dove or Dial). Once your catheter is removed, expect some blood in your urine and some burning when you urinate. You should have an appointment to have this removed, if you do not please call our office to arrange. Pending Studies at Discharge: Yes Studies:: pathology Stand-Alone Forms: My [facility] [employer], Smoking Cessation Medications and DC Order Prescriptions: New ciprofloxacin HCl 500 mg tablet 500 mg PO BID Qty: 6 0RF Continued multivitamin Tablet 1 tab PO QAM baclofen 10 mg tablet 10 mg PO HS Qty: 90 3RF Gaviscon 95-358 mg/15 mL suspension 15 ml PO DAILY PRN (Reason: Abdominal Pain) Xiidra 5 % dropperette 1 drp ophthalmic (eye) BID Rx Instructions: administer approximately 12 hours apart calcium polycarbophil [FiberCon] 625 mg tablet 1,250 mg PO QAM diclofenac sodium 1 % gel 2 g topical QID Rx Instructions: apply to single elbow, wrist or hand; for hand includes palm/fingers/back of hand dexlansoprazole [Dexilant] 60 mg capsule,biphase delayed releas 60 mg PO Q2D carboxymethylcellulose sodium [Refresh Liquigel] 1 % drops, liquid gel 1 drp ophthalmic (eye) BID Probiotic 100 billion cell Capsule 1 cap PO QAM meloxicam 15 mg Tablet 15 mg PO DAILY PRN (Reason: Pain) garlic 1,000 mg Capsule 2 cap PO QAM hydrochlorothiazide 25 mg Tablet 25 mg PO QAM losartan 100 mg Tablet 100 mg PO QAM omega 7-oqk-bxm-fish oil [Fish Oil] 1,000 mg (120 mg-180 mg) Capsule 1 cap PO QAM amoxicillin 500 mg Tablet 500 mg PO DAILY PRN (Reason: BEFORE DENTAL PROCEDURES) sucralfate 1 gram Tablet 1 g PO QID PRN (Reason: Acid Reflux) ascorbic acid (vitamin C) [Vitamin C] 500 mg Tablet 500 mg PO QAM tramadol 50 mg tablet 50 mg PO Q4 PRN (Reason: pain) atenolol 50 mg Tablet 50 mg PO QAM magnesium 500 mg Tablet 500 mg PO QAM methylsulfonylmethane [MSM] 1,000 mg Tablet 2,000 mg PO QAM cholecalciferol (vitamin D3) [Vitamin D3] 50 mcg (2,000 unit) Capsule 6,000 mcg PO QAM vit [id number] D3-calc cit-Zn tablet 3,000 PO DAILY Discharge Orders: Discharge Order (Routine); Ordered 12/05/22 Ordered By: Tapan Mooney Admission Data Admit Date/Time: 12/04/22 16:41 Attending Provider: Tapan Mooney Admit Provider: Tapan Mooney Primary Care Provider: Scotty Locke Other Interventions: Discharge Summary Assessment (RN) Last Done: 12/05/22 10:37 Coding Level of Care Code 73082 IN/OBS DISCH 30 MIN/LESS Diagnoses Benign prostatic hyperplasia with urinary obstruction N40.1; N13.8
--- NOTE | 2022-12-05 11:00 | Discharge Summary ---
Date of Service December 05, 2022 Admission HPI Per Admitting Provider Voiding dysfunction, lateral lobe hypertrophy here for TURP Discharge Data Allergies Allergy/AdvReac Type Severity Reaction Status Date / Time amitriptyline Allergy Intermediate heart Verified 12/04/22 13:17 palpitations finasteride AdvReac Intermediate painful Verified 12/04/22 13:17 gynecomastia Procedures Performed Operation Date: 12/04/22 14:40 Actual Procedures p Transurethral Resection Prostate(Not Applicable) - Tapan Mooney MD Discharge Plan Discharge Items Patient Disposition: Home - Self-Care Reason For Visit: Benign Prostatic Hyperplasia with Urinary Discharge Diagnosis: Benign prostatic hyperplasia with urinary obstruction Activity: Per Instructions section Lifting: No more than 25 pounds Bathing Comment: Okay to shower after discharge Exercise/Sports: Gradually increase as tolerated Driving/Machine Use: No driving while taking prescription pain medication Non-emergency contact: Surgeon and Urologist Call non-emergency contact if: your pain is not controlled and your temperature is above 101 Follow-up/Referrals: Tapan Mooney MD [Physician] - 01/02/23 11:00 am Scotty Locke MD [Primary Care Provider] - Diet: Regular Addtl Attending Provider Instructions: Please take all medications as prescribed and keep all follow-ups as scheduled. Please call our office at [phone] with any questions, concerns or need to reschedule appointments for any reason. We are happy to assist you. Tips for your recovery at home: Dont be alarmed by brownish or reddish blood or clots in your urine. This is a result of the procedure. This may occur off and on for weeks to months after the procedure but should continue to improve. Drink plenty of fluids during the day (enough to keep your urine very light colored). This will help keep a healthy flow of urine. Do not lift >25 lbs until your followup Avoid constipation. Please use a stool softener (Colace) for the first two weeks after your procedure Be sure to finish the antibiotics as prescribed. If you go home with a catheter, please wash tubing where it enters your body twice daily with mild soap (Dove or Dial). Once your catheter is removed, expect some blood in your urine and some burning when you urinate. You should have an appointment to have this removed, if you do not please call our office to arrange. Pending Studies at Discharge: Yes Studies:: pathology Stand-Alone Forms: My [facility], Smoking Cessation Medications and DC Order Prescriptions: New ciprofloxacin HCl 500 mg tablet 500 mg PO BID Qty: 6 0RF Continued multivitamin Tablet 1 tab PO QAM baclofen 10 mg tablet 10 mg PO HS Qty: 90 3RF Gaviscon 95-358 mg/15 mL suspension 15 ml PO DAILY PRN (Reason: Abdominal Pain) Xiidra 5 % dropperette 1 drp ophthalmic (eye) BID Rx Instructions: administer approximately 12 hours apart calcium polycarbophil [FiberCon] 625 mg tablet 1,250 mg PO QAM diclofenac sodium 1 % gel 2 g topical QID Rx Instructions: apply to single elbow, wrist or hand; for hand includes palm/fingers/back of hand dexlansoprazole [Dexilant] 60 mg capsule,biphase delayed releas 60 mg PO Q2D carboxymethylcellulose sodium [Refresh Liquigel] 1 % drops, liquid gel 1 drp ophthalmic (eye) BID Probiotic 100 billion cell Capsule 1 cap PO QAM meloxicam 15 mg Tablet 15 mg PO DAILY PRN (Reason: Pain) garlic 1,000 mg Capsule 2 cap PO QAM hydrochlorothiazide 25 mg Tablet 25 mg PO QAM losartan 100 mg Tablet 100 mg PO QAM omega 9-mao-wjy-fish oil [Fish Oil] 1,000 mg (120 mg-180 mg) Capsule 1 cap PO QAM amoxicillin 500 mg Tablet 500 mg PO DAILY PRN (Reason: BEFORE DENTAL PROCEDURES) sucralfate 1 gram Tablet 1 g PO QID PRN (Reason: Acid Reflux) ascorbic acid (vitamin C) [Vitamin C] 500 mg Tablet 500 mg PO QAM tramadol 50 mg tablet 50 mg PO Q4 PRN (Reason: pain) atenolol 50 mg Tablet 50 mg PO QAM magnesium 500 mg Tablet 500 mg PO QAM methylsulfonylmethane [MSM] 1,000 mg Tablet 2,000 mg PO QAM cholecalciferol (vitamin D3) [Vitamin D3] 50 mcg (2,000 unit) Capsule 6,000 mcg PO QAM vit [id number] D3-calc cit-Zn tablet 3,000 PO DAILY Discharge Orders: Discharge Order (Routine); Ordered 12/05/22 Ordered By: Tapan Mooney Admission Data Admit Date/Time: 12/04/22 16:41 Attending Provider: Tapan Mooney Admit Provider: Tapan Mooney Primary Care Provider: Scotty Locke Other Interventions: Discharge Summary Assessment (RN) Last Done: 12/05/22 10:37 Coding Diagnoses
[2022-12-05] MEDS ORDERED: PANTOprazole 40 MG TAB PO SCH (21:00)
== END 2022-12-05 11:46 | disposition home or self-care (01) ==
LOC: 3E 12:48 → ASU 12:48

== ENCOUNTER 2024-01-11 13:29 | Inpatient (IN) ==
--- NOTE | 2024-01-11 14:24 | Emergency Department Note ---
Impression & Plan Dizziness, Diplopia ED Provider Note NAME: MINERVA MENDOSA III AGE: 73 SEX: Male INFORMANT: Patient ED PROVIDER(S): Subhash Duffy MD CHIEF COMPLAINT: Dizziness PLAN: Disposition: Admitted Outpatient prescription management: none Referral: None MEDICAL DECISION MAKING: Patient presented with symptoms concerning for posterior circulation issues given the dizziness, balance problems and double vision. He is currently asymptomatic and had a nonfocal neurologic examination. Patient had 2 episodes already. Stroke workup was initiated. CT imaging of the head as well as CT angiography of the head and neck did not reveal any acute findings. The patient has a sinus rhythm on ECG and monitoring. Laboratory testing did not reveal any acute findings. Given the episodes and diplopia further neurologic workup in the hospital was deemed appropriate. Consultation was made with the [facility]. Patient was evaluated in the ER admitted for further management. Care/management discussed with: cad manager requires Level of care consideration(s): After review of the information above and other included data, I feel the patient requires escalation of care to admission. Triage Nursing notes: reviewed and agree them. Vital Signs: reviewed and remarkable for no significant abnormalities Additional History obtained from: none Chronic Medical/Social Conditions affecting care: none Prior/ Outside/ External records reviewed: none Differential Diagnosis: CVA, TIA, Benign positional vertigo, dehydration, hypovolemia, anemia, tumor, infection, hypoglycemia, electrolyte abnormalities, cardiac sources, intracerebral event, toxicologic, neurologic, as well as other pathologies. Diagnostics, independently interpreted by me: EC Lead ECG performed and revealed Normal sinus rhythm at 80, normal [place], QRS normal. No elevation or depression. No PACs or PVCs Cardiac Monitoring: Cardiac monitoring ordered by me: The patient was placed on continuous cardiac monitoring and observed. It revealed a normal sinus rhythm at 70 beats per minute without ectopy or evidence of dysrhythmia. Medical decision rules: none Imaging studies: Head CT: A noncontrast CT scan of the head was performed and was negative for tumor, fracture, intracranial hemorrhage, or other acute pathology. I refer you to the EMR for further details. HPI: 73 year old Male arrives for evaluation of dizziness. This started this morning and is resolved. The patient also notes the following associated symptoms, double vision, balance disturbance. The patient has taken no medication for relieving factors. Current pain is rated as 0/10. Pt notes brief episodes of similar symptoms one month ago. Pt denies LOC, headache, fevers, chills, diaphoresis, neck pain, chest pain, breathing difficulties, nausea, vomiting, abdominal pain, back pain, melena, hematochezia, urinary symptoms, numbness, weakness, lymphadenopathy, rash, or other complaints. PAST MEDICAL HISTORY: See Below, kdiney stones PAST SURGICAL HISTORY: See Below, SOCIAL HISTORY: See Below, quit smoking 50 yrs ago HOME MEDICATIONS: See Below ALLERGIES: See Below VITALS: See Below PHYSICAL EXAMINATION: GENERAL: Awake, alert, well-appearing, in no distress HENT: Normocephalic, atraumatic. Oropharynx unremarkable. EYES: Normal conjunctiva. Sclera non-icteric. PERRL. EOMI NECK: Inspection normal. Non-tender. Supple. No nuchal rigidity. FROM. No masses. RESPIRATORY: Clear to auscultation. No wheezes. No rales. Normal respiratory effort. CARDIAC: Normal rate. Normal rhythm. No murmurs. No rubs. Extremities warm and well perfused. Pulses equal. No JVD. GI: Soft, non-distended. No tenderness to palpation. No rebound or guarding. No masses. RECTAL: Deferred. MUSCULOSKELETAL: Atraumatic. Chest examination reveals no tenderness. The back is symmetrical on inspection without obvious abnormality. There is no CVA tenderness to palpation. No joint edema. LOWER EXTREMITIES: Calves are equal size bilaterally and non-tender. No edema. No discoloration. NEURO: Normal sensorium. No sensory or motor deficits noted. Speech normal. No drift. Normal [place]. SKIN: No rash or jaundice noted. PROCEDURES: none CRITICAL CARE: none OBSERVATION NOTE: none Past Med/Surg History Medical History (Updated 01/11/24 @ 21:11 by Evita Escamilla PA-C) Chronic pain Anxiety and depression Prediabetes Gastric artery aneurysm Calcified/surgical intervention not recommended, monitored by [facility] vascular Elbow pain R/t elbow tendon (plan for future surgery). will need assistance to move on liter per PAT RN phone interview Hematuria Peptic ulcer disease hx BPH (benign prostatic hyperplasia) Diverticulosis Chronic back pain Osteoarthritis Kidney stones GERD (gastroesophageal reflux disease) Hearing deficit [place] [facility] Valvular heart disease Mild posterior mitral leaflet prolapse, Mild MR per 2016 stress echo Hypertension Surgical History History of surgery TIF procedure History of surgery EUS performed 06/03/2020 @ [facility] History of back surgery removal of tip of coccyx d/t a fracture S/P arthroscopy of left shoulder S/P epidural steroid injection History of arthroscopy of right shoulder History of hand surgery LEFT History of umbilical hernia repair History of hemorrhoidectomy History of tonsillectomy History of transurethral resection of prostate History of surgery GREENLIGHT PROCEDURE History of cystoscopy W/ STONE EXTRACTION History of esophagogastroduodenoscopy (EGD) History of colonoscopy W/ POLYPECTOMY History of cardiac cath 2007 - no stents Family History Grandfather (Paternal) Family hx of colon cancer Grandfather (Maternal) Family hx of colon cancer Brother FHx: bladder cancer Rheumatoid arthritis Other Myocardial infarction No family history of adverse response to anesthesia Stroke Social History Smoking Status: Former smoker Tobacco Type: Cigarettes Second Hand Exposure: No; Do You Dip or Chew Tobacco: No; Hx Alcohol Use: Yes Alcohol type: beer, wine and hard liquor Hx Substance Use: No Preferred Language: Tunisian Communication Ability: Effective Nurse Charge Rn Required: No Beliefs That Will Affect Care: None Current Living Situation: Alone Feels Safe at Home: Yes Assistive Devices: Denture - Upper and Glasses Allergies Allergies Allergy/AdvReac Type Severity Reaction Status Date / Time amitriptyline Allergy Intermediate heart Verified 12/04/23 13:02 palpitations amoxicillin [From Augmentin] Allergy Intermediate Sores in Unverified 12/04/23 13:02 mouth clavulanic acid Allergy Sores in Unverified 12/04/23 13:02 [From Augmentin] mouth finasteride AdvReac Intermediate painful Verified 12/04/23 13:02 gynecomastia Home Meds Home Medications Medication Instructions Recorded Confirmed amoxicillin 500 mg tablet 500 mg PO DAILY PRN BEFORE DENTAL 10/31/18 01/11/24 PROCEDURES garlic 1,000 mg capsule 1 cap PO QAM 10/31/18 01/11/24 losartan 100 mg tablet 100 mg PO QAM 10/31/18 01/11/24 meloxicam 15 mg tablet 0 mg PO DAILY PRN Pain 10/31/18 01/11/24 Lactobacillus 40-Bifidobact 1 cap PO QAM 10/05/19 01/11/24 3-S.thermophilus 100 billion cell capsule (Probiotic) atenolol 50 mg tablet 50 mg PO QAM 08/18/21 01/11/24 lifitegrast 5 % eye drops in a 1 drp ophthalmic (eye) BID 05/22/22 01/11/24 dropperette (Xiidra) loratadine 10 mg tablet (Claritin) 10 mg PO DAILY 05/28/23 01/11/24 Al hyd-Mg tr-alg ac-sod bicarb 80 1 tab PO BID PRN Heartburn 10/21/23 01/11/24 mg-14.2 mg chewable tablet (Gaviscon) azelastine 137 mcg (0.1 %) nasal 1 spray intranasal BID PRN Allergy 10/21/23 01/11/24 spray aerosol Symptoms calcium polycarbophil 625 mg 625 mg PO DAILY 10/21/23 01/11/24 tablet (FiberCon) chlorthalidone 25 mg tablet 12.5 mg PO DAILY 10/21/23 01/11/24 cholecalciferol (vitamin D3) 50 50 mcg PO QAM 10/21/23 01/11/24 mcg (2,000 unit) capsule (Vitamin D3) fluticasone propionate 50 1 spray intranasal DAILY PRN 10/21/23 01/11/24 mcg/actuation nasal Allergy Symptoms spray,suspension (Flonase Allergy Relief) methylsulfonylmethane 1,000 mg 1,000 mg PO DAILY 10/21/23 01/11/24 capsule (MSM) sennosides 25 mg tablet (Laxative 25 mg PO DAILY 10/21/23 01/11/24 (sennosides)) cyanocobalamin (vitamin B-12) 500 500 mcg PO DAILY 12/04/23 01/11/24 mcg tablet (Vitamin B-12) diclofenac sodium 1 % topical gel 2 g topical QID 12/04/23 01/11/24 multivitamin 1 tab PO DAILY 12/04/23 01/11/24 potassium chloride 10 mEq 10 meq PO BID 12/04/23 01/11/24 tablet,extended release(part/cryst) tramadol 50 mg tablet 50 mg PO Q8H PRN Pain 12/04/23 01/11/24 baclofen 10 mg tablet 5 mg PO HS 01/11/24 01/11/24 bupropion HCl 150 mg 24 hr tablet, 150 mg PO DAILY 01/11/24 01/11/24 extended release carboxymethylcellulose sodium 1 % 2 drp ophthalmic (eye) BID PRN Dry 01/11/24 01/11/24 eye liquid gel drops Eye(S) dexlansoprazole 60 mg 60 mg PO HS 01/11/24 01/11/24 capsule,biphase delayed release (Dexilant) docusate sodium 100 mg capsule 200 mg PO HS 01/11/24 01/11/24 (Colace) hydroxyzine HCl 25 mg tablet 25 mg PO Q6H PRN Anxiety 01/11/24 01/11/24 Results & Data (ED) Vital Signs Vital Signs - 24 hr 01/11/24 13:39 01/11/24 15:30 01/11/24 16:00 Temperature 37 C Temperature Source Axillary Pulse Rate 88 80 Pulse Rate [Left Apical] 79 Respiratory Rate 18 16 14 Respiratory Effort / Characteristics Non-Labored Non-Labored Respiratory Depth Normal Normal Blood Pressure 132/85 Blood Pressure [Right Arm] 118/77 Blood Pressure Mean 100 Blood Pressure Mean [Right Arm] 90 Pulse Oximetry 99 97 98 Oxygen Delivery Method Room Air Room Air Sepsis Recent Fever Within 48 Hours No Sepsis New/Unexplained Change in Mental Status No Sepsis Action Taken by Nursing No Action Required 01/11/24 16:13 01/11/24 16:36 01/11/24 17:00 Temperature Temperature Source Pulse Rate 79 81 85 Pulse Rate [Left Apical] Respiratory Rate 16 16 Respiratory Effort / Characteristics Respiratory Depth Blood Pressure 152/85 H 128/77 Blood Pressure [Right Arm] Blood Pressure Mean 107 94 Blood Pressure Mean [Right Arm] Pulse Oximetry 98 Oxygen Delivery Method Room Air Sepsis Recent Fever Within 48 Hours Sepsis New/Unexplained Change in Mental Status Sepsis Action Taken by Nursing 01/11/24 17:30 Temperature Temperature Source Pulse Rate 91 H Pulse Rate [Left Apical] Respiratory Rate 16 Respiratory Effort / Characteristics Respiratory Depth Blood Pressure 108/81 Blood Pressure [Right Arm] Blood Pressure Mean 90 Blood Pressure Mean [Right Arm] Pulse Oximetry Oxygen Delivery Method Sepsis Recent Fever Within 48 Hours Sepsis New/Unexplained Change in Mental Status Sepsis Action Taken by Nursing Laboratory Data 01/11/24 14:01 01/11/24 14:01 Lab Results 01/11/24 01/11/24 Range/Units 14:01 14:19 WBC 6.91 (4.8-10.8) K/ul RBC 5.56 (4.70-6.10) M/uL Hgb 16.8 (14.0-18.0) g/dl Hct 48.8 (42.0-52.0) % MCV 87.8 (80.0-100.0) fL MCH 30.2 (25.0-34.0) pg MCHC 34.4 (32.0-36.0) g/dL RDW Std Deviation 40.5 (36.4-46.3) fL RDW Coeff of Carmen 12.6 (11.5-14.5) % Plt Count 150 (130-400) K/uL MPV 11.6 (9.4-12.4) fL Immature Gran % (Auto) 0.1 % Neut % (Auto) 72.3 % Lymph % (Auto) 19.2 % [place] % (Auto) 6.9 % Eos % (Auto) 0.9 % Baso % (Auto) 0.6 % Neut # (Auto) 4.99 (1.40-6.50) K/uL Lymph # (Auto) 1.33 (1.20-3.40) K/uL [place] # (Auto) 0.48 (0.11-0.59) K/uL Eos # (Auto) 0.06 (0.00-0.50) K/uL Baso # (Auto) 0.04 (0.00-0.20) K/uL Immature Gran # (Auto) 0.01 (0.01-0.20) K/uL PT 10.8 (9.0-12.0) Seconds INR 1.0 (0.9-1.1) APTT 23 (21-31) Seconds PTT Ratio 0.9 Sodium 141 (136-145) mmol/L Potassium 4.3 (3.5-5.1) mmol/L Chloride 104 (98-107) mmol/L Carbon Dioxide 30 (21-32) mmol/L Anion Gap 7 (3-11) BUN 15 (6-23) mg/dl Creatinine 1.07 (0.6-1.4) mg/dl Est Cr Clr Drug Dosing 65.5 ml/min Est GFR ( Amer) 79.4 ml/min Est GFR (Non-Af Amer) 68.5 ml/min BUN/Creatinine Ratio 14.0 (10-20) Glucose 110 H (70-99(Fasting)) mg/dl Calcium 9.4 (8.6-10.3) mg/dl Magnesium 1.9 (1.7-2.4) mg/dl Total Bilirubin 0.7 (0.2-1.0) mg/dl AST 17 (13-39) U/L ALT 23 (7-52) U/L Alkaline Phosphatase 70 (34-104) U/L Troponin I High Sens 4.8 (0-20) pg/ml Total Protein 7.3 (6.0-8.3) gm/dl Albumin 4.6 (3.4-5.0) gm/dl Globulin 2.7 (2.5-4.0) gm/dl Albumin/Globulin Ratio 1.7 (0.9-2) Blood Type AB Positive Antibody Screen NEGATIVE Administered Medications Acetaminophen (Acetaminophen 325 Mg Tab) 650 mg PO Q4H PRN PRN Reason: Pain or Fever Stop: 02/10/24 20:07 Last Admin: 01/11/24 20:56 Dose: 650 mg Documented By: HIEU Azelastine HCl (Azelastine Hcl 0.1% Nasal 200 Sprays/27,400 Mcg Btl) 1 sprays TREVON BID PRN PRN Reason: Allergy Symptoms Stop: 02/10/24 20:07 Last Admin: 01/11/24 21:36 Dose: 1 sprays Documented By: HIEU Baclofen (Baclofen 10 Mg Tab) 5 mg PO [facility] Stop: 02/10/24 20:59 Last Admin: 01/11/24 20:50 Dose: 5 mg Documented By: HIEU Docusate Sodium (Docusate Sodium 100 Mg Cap) 100 mg PO [facility] Stop: 02/10/24 20:59 Last Admin: 01/11/24 20:49 Dose: 100 mg Documented By: HIEU Enoxaparin Sodium (Enoxaparin Inj 40 Mg/0.4 Ml Syr) 40 mg SQ Q24H MARILOU Stop: 02/10/24 20:59 Last Admin: 01/11/24 20:50 Dose: Not Given Documented By: HIEU Pantoprazole Sodium (Pantoprazole 40 Mg Tab) 40 mg PO HS MARILOU Stop: 02/10/24 20:59 Last Admin: 01/11/24 20:49 Dose: 40 mg Documented By: HIEU Potassium Chloride (Potassium Chloride 10 Meq Tabcr) 10 meq PO BID MARILOU Stop: 02/10/24 20:59 Last Admin: 01/11/24 20:48 Dose: 10 meq Documented By: HIEU Discontinued Medications Sodium Chloride (Nss) 1,000 mls @ 50 mls/hr IV .Q20H MARILOU Stop: 02/10/24 14:14 Last Infusion: 01/11/24 16:50 Dose: Infused Documented By: Admin: 01/11/24 14:29 Dose: 50 mls/hr Documented By: BOYD Ioversol (Optiray 320 125ml) 119 ml IV ONCE ONE Stop: 01/11/24 15:07 Last Admin: 01/11/24 15:08 Dose: 119 ml Documented By: REESE Imaging Data Radiologist's Impression: Head CT 01/11/24 14:[address] OF THE BRAIN; CT ANGIOGRAM OF THE BRAIN; CT ANGIOGRAM OF THE NECK CLINICAL HISTORY: Neurological deficit. Stroke like symptoms. Dizziness. COMPARISON STUDY: CT of the brain dated 08/10/2008. TECHNIQUE: Unenhanced axial CT scan of the brain is performed. Subsequently, following the IV administration of 119 of Optiray 320, CT angiogram of the head and neck was performed from the aortic arch to the vertex. Images are reviewed in the axial, sagittal, and coronal planes. 3-D MIPS images are created and assessed. IV contrast was administered without complication. All measurements were calculated based on NASCET criteria. A dose lowering technique was utilized adhering to the principles of ALARA. CT DOSE: 1111. mGy.cm FINDINGS: Brain parenchyma: There is age-related involutional change noted minimal microangiopathic disease. Mineralization is noted in the basal ganglia. There is no hemorrhage, mass effect, or evidence of acute territorial ischemia by CT criteria. There is no evidence of enhancing mass lesion on the angiogram phase images. The ventricles, sulci, and cisterns are prominent secondary to involutional change. Gaspar-white matter differentiation is preserved. No extra- axial fluid collection is seen. Thoracic aorta: Visualized portions of the thoracic aorta are normal in caliber. The aortic arch demonstrates standard 3-vessel anatomy. Right carotid arterial system: The right common carotid artery is widely patent, as are the right internal and external carotid arteries. Left carotid arterial system: The left common carotid artery is widely patent, as are the left internal and external carotid arteries. There is mild calcified plaque in the carotid bulb. Vertebral arteries: Widely patent bilaterally and codominant. Subclavian arteries: Widely patent bilaterally. Intracranial vasculature: There is atherosclerotic calcification of the cavernous carotid arteries. The internal carotid arteries are patent at the skull base, as are the anterior and middle cerebral arteries bilaterally. The vertebrobasilar system and posterior cerebral arteries are widely patent. The vertebral arteries are codominant. There is no aneurysm, high-grade stenosis, or focal vessel cut off seen throughout the intracranial circulation. Jugular veins: Patent bilaterally. Dural sinuses: Patent. Lung apices: There is mild emphysematous change. The imaged upper lobe lung parenchyma is otherwise clear. Soft tissues: The visualized pharyngeal soft tissues are normal in appearance noting angiographic phase technique. The oropharyngeal airway appears widely patent. The thyroid gland is mildly enlarged and heterogeneous. The salivary glands are normal in appearance. No cervical lymphadenopathy is seen. Skeletal structures: The skeletal structures are osteopenic. The calvarium appears intact. The cervical spine is maintained noting multilevel spondylosis. Orbits: The bony orbits are intact. Orbital contents are normal as visualized. Sinuses and mastoids: The paranasal sinuses are clear. The mastoid air cells are well pneumatized. IMPRESSION: 1. There is no hemorrhage, mass effect, or evidence of acute territorial ischemia by CT criteria. 2. Unremarkable CT angiogram of the brain. 3. Unremarkable CT angiogram of the neck. 4. Emphysema. ACT 112: Negative or not required by law. Electronically signed by: Pete Ivan M.D. 01/11/2024 3:24 PM Head CTA 01/11/24 14:[address] OF THE BRAIN; CT ANGIOGRAM OF THE BRAIN; CT ANGIOGRAM OF THE NECK CLINICAL HISTORY: Neurological deficit. Stroke like symptoms. Dizziness. COMPARISON STUDY: CT of the brain dated 08/10/2008. TECHNIQUE: Unenhanced axial CT scan of the brain is performed. Subsequently, following the IV administration of 119 of Optiray 320, CT angiogram of the head and neck was performed from the aortic arch to the vertex. Images are reviewed in the axial, sagittal, and coronal planes. 3-D MIPS images are created and assessed. IV contrast was administered without complication. All measurements were calculated based on NASCET criteria. A dose lowering technique was utilized adhering to the principles of ALARA. CT DOSE: 1111. mGy.cm FINDINGS: Brain parenchyma: There is age-related involutional change noted minimal microangiopathic disease. Mineralization is noted in the basal ganglia. There is no hemorrhage, mass effect, or evidence of acute territorial ischemia by CT criteria. There is no evidence of enhancing mass lesion on the angiogram phase images. The ventricles, sulci, and cisterns are prominent secondary to involutional change. Gaspar-white matter differentiation is preserved. No extra- axial fluid collection is seen. Thoracic aorta: Visualized portions of the thoracic aorta are normal in caliber. The aortic arch demonstrates standard 3-vessel anatomy. Right carotid arterial system: The right common carotid artery is widely patent, as are the right internal and external carotid arteries. Left carotid arterial system: The left common carotid artery is widely patent, as are the left internal and external carotid arteries. There is mild calcified plaque in the carotid bulb. Vertebral arteries: Widely patent bilaterally and codominant. Subclavian arteries: Widely patent bilaterally. Intracranial vasculature: There is atherosclerotic calcification of the cavernous carotid arteries. The internal carotid arteries are patent at the skull base, as are the anterior and middle cerebral arteries bilaterally. The vertebrobasilar system and posterior cerebral arteries are widely patent. The vertebral arteries are codominant. There is no aneurysm, high-grade stenosis, or focal vessel cut off seen throughout the intracranial circulation. Jugular veins: Patent bilaterally. Dural sinuses: Patent. Lung apices: There is mild emphysematous change. The imaged upper lobe lung parenchyma is otherwise clear. Soft tissues: The visualized pharyngeal soft tissues are normal in appearance noting angiographic phase technique. The oropharyngeal airway appears widely patent. The thyroid gland is mildly enlarged and heterogeneous. The salivary glands are normal in appearance. No cervical lymphadenopathy is seen. Skeletal structures: The skeletal structures are osteopenic. The calvarium appears intact. The cervical spine is maintained noting multilevel spondylosis. Orbits: The bony orbits are intact. Orbital contents are normal as visualized. Sinuses and mastoids: The paranasal sinuses are clear. The mastoid air cells are well pneumatized. IMPRESSION: 1. There is no hemorrhage, mass effect, or evidence of acute territorial ischemia by CT criteria. 2. Unremarkable CT angiogram of the brain. 3. Unremarkable CT angiogram of the neck. 4. Emphysema. ACT 112: Negative or not required by law. Electronically signed by: Pete Ivan M.D. 01/11/2024 3:24 PM Neck CTA 01/11/24 14:[address] OF THE BRAIN; CT ANGIOGRAM OF THE BRAIN; CT ANGIOGRAM OF THE NECK CLINICAL HISTORY: Neurological deficit. Stroke like symptoms. Dizziness. COMPARISON STUDY: CT of the brain dated 08/10/2008. TECHNIQUE: Unenhanced axial CT scan of the brain is performed. Subsequently, following the IV administration of 119 of Optiray 320, CT angiogram of the head and neck was performed from the aortic arch to the vertex. Images are reviewed in the axial, sagittal, and coronal planes. 3-D MIPS images are created and assessed. IV contrast was administered without complication. All measurements were calculated based on NASCET criteria. A dose lowering technique was utilized adhering to the principles of ALARA. CT DOSE: 1111. mGy.cm FINDINGS: Brain parenchyma: There is age-related involutional change noted minimal microangiopathic disease. Mineralization is noted in the basal ganglia. There is no hemorrhage, mass effect, or evidence of acute territorial ischemia by CT criteria. There is no evidence of enhancing mass lesion on the angiogram phase images. The ventricles, sulci, and cisterns are prominent secondary to involutional change. Gaspar-white matter differentiation is preserved. No extra- axial fluid collection is seen. Thoracic aorta: Visualized portions of the thoracic aorta are normal in caliber. The aortic arch demonstrates standard 3-vessel anatomy. Right carotid arterial system: The right common carotid artery is widely patent, as are the right internal and external carotid arteries. Left carotid arterial system: The left common carotid artery is widely patent, as are the left internal and external carotid arteries. There is mild calcified plaque in the carotid bulb. Vertebral arteries: Widely patent bilaterally and codominant. Subclavian arteries: Widely patent bilaterally. Intracranial vasculature: There is atherosclerotic calcification of the cavernous carotid arteries. The internal carotid arteries are patent at the skull base, as are the anterior and middle cerebral arteries bilaterally. The vertebrobasilar system and posterior cerebral arteries are widely patent. The vertebral arteries are codominant. There is no aneurysm, high-grade stenosis, or focal vessel cut off seen throughout the intracranial circulation. Jugular veins: Patent bilaterally. Dural sinuses: Patent. Lung apices: There is mild emphysematous change. The imaged upper lobe lung parenchyma is otherwise clear. Soft tissues: The visualized pharyngeal soft tissues are normal in appearance noting angiographic phase technique. The oropharyngeal airway appears widely patent. The thyroid gland is mildly enlarged and heterogeneous. The salivary glands are normal in appearance. No cervical lymphadenopathy is seen. Skeletal structures: The skeletal structures are osteopenic. The calvarium appears intact. The cervical spine is maintained noting multilevel spondylosis. Orbits: The bony orbits are intact. Orbital contents are normal as visualized. Sinuses and mastoids: The paranasal sinuses are clear. The mastoid air cells are well pneumatized. IMPRESSION: 1. There is no hemorrhage, mass effect, or evidence of acute territorial ischemia by CT criteria. 2. Unremarkable CT angiogram of the brain. 3. Unremarkable CT angiogram of the neck. 4. Emphysema. ACT 112: Negative or not required by law. Electronically signed by: Pete Ivan M.D. 01/11/2024 3:24 PM Discharge Plan Visit Data Chief Complaint: Stroke/CVA Symptoms Stated Complaint: DBL VISION/DIZZINESS/NO CONTROL OVER BODY ED Provider: Subhash Duffy Discharge Problem: Dizziness, Diplopia Discharge Instructions Interventions: ED Discharge Assessment Last Done: 01/11/24 20:09
[2024-01-11 14:28] LABS: Basophils # (auto) 0.04 K/uL (0.00-0.20); Basophils % (auto) 0.6 %; Eosinophils # (auto) 0.06 K/uL (0.00-0.50); Eosinophils % (auto) 0.9 %; Hematocrit (blood only) 48.8 % (42.0-52.0); Hemoglobin 16.8 g/dl (14.0-18.0); Immature Granulocytes # (auto) 0.01 K/uL (0.01-0.20); Immature Granulocytes % (auto) 0.1 %; Lymphocytes # (auto) 1.33 K/uL (1.20-3.40); Lymphocytes % (auto) 19.2 %; Mean Corpuscular Hemoglobin 30.2 pg (25.0-34.0); Mean Corpuscular Hgb Conc 34.4 g/dL (32.0-36.0); Mean Corpuscular Volume 87.8 fL (80.0-100.0); Mean Platelet Volume 11.6 fL (9.4-12.4); Monocytes # (auto) 0.48 K/uL (0.11-0.59); Monocytes % (auto) 6.9 %; Neutrophils # (auto) 4.99 K/uL (1.40-6.50); Neutrophils % (auto) 72.3 %; Platelet Count 150 K/uL (130-400); RDW Coefficient of Variation 12.6 % (11.5-14.5); RDW Standard Deviation 40.5 fL (36.4-46.3); Red Blood Count 5.56 M/uL (4.70-6.10); White Blood Count 6.91 K/ul (4.8-10.8)
[2024-01-11] MEDS: SODIUM CHLORIDE 0.9% 1,000 ML IV SCH (14:29)
[2024-01-11 14:32] LABS: Albumin Globulin Ratio 1.7 (0.9-2); Albumin Level 4.6 gm/dl (3.4-5.0); Bilirubin,Total 0.7 mg/dl (0.2-1.0); Calcium 9.4 mg/dl (8.6-10.3); Creatinine Clr Calc Pharmacy 65.5 ml/min; Est GFR (African American) 79.4 ml/min; Est GFR (Non-African American) 68.5 ml/min; Globulin 2.7 gm/dl (2.5-4.0); Potassium 4.3 mmol/L (3.5-5.1); Total Protein 7.3 gm/dl (6.0-8.3)
[2024-01-11 14:49] LABS: Partial Thromboplastin Ratio 0.9; Partial Thromboplastin Time 23 Seconds (21-31); Prothrombin Time 10.8 Seconds (9.0-12.0)
[2024-01-11 14:52] LABS: Magnesium 1.9 mg/dl (1.7-2.4)
[2024-01-11 14:59] LABS: Troponin I High Sensitivity 4.8 pg/ml (0-20)
[2024-01-11] MEDS: OPTIRAY 320 125ml IV ONE (15:08)
--- NOTE | 2024-01-11 15:27 | CT Scan Report ---
UNENHANCED CT OF THE BRAIN; CT ANGIOGRAM OF THE BRAIN; CT ANGIOGRAM OF THE NECK CLINICAL HISTORY: Neurological deficit. Stroke like symptoms. Dizziness. COMPARISON STUDY: CT of the brain dated 08/10/2008. TECHNIQUE: Unenhanced axial CT scan of the brain is performed. Subsequently, following the IV adminis tration of 119 of [address] [address], CT angiogram of the head and neck was performed from the aortic arch t o the vertex. Images are reviewed in the axial, sagittal, and coronal planes. 3-D MIPS images are cre ated and assessed. IV contrast was administered without complication. All measurements were calculate d based on NASCET criteria. A dose lowering technique was utilized adhering to the principles of ALA RA. CT DOSE: 1111. mGy.cm FINDINGS: Brain parenchyma: There is age-related involutional change noted minimal microangiopathic disease. Mi neralization is noted in the basal ganglia. There is no hemorrhage, mass effect, or evidence of acute territorial ischemia by CT criteria. There is no evidence of enhancing mass lesion on the angiogram phase images. The ventricles, sulci, and cisterns are prominent secondary to involutional change. Gra y-white matter differentiation is preserved. No extra-axial fluid collection is seen. Thoracic aorta: Visualized portions of the thoracic aorta are normal in caliber. The aortic arch demo nstrates standard 3-vessel anatomy. Right carotid arterial system: The right common carotid artery is widely patent, as are the right int ernal and external carotid arteries. Left carotid arterial system: The left common carotid artery is widely patent, as are the left internet specialist al and external carotid arteries. There is mild calcified plaque in the carotid bulb. Vertebral arteries: Widely patent bilaterally and codominant. Subclavian arteries: Widely patent bilaterally. Intracranial vasculature: There is atherosclerotic calcification of the cavernous carotid arteries. T he internal carotid arteries are patent at the skull base, as are the anterior and middle cerebral ar teries bilaterally. The vertebrobasilar system and posterior cerebral arteries are widely patent. The vertebral arteries are codominant. There is no aneurysm, high-grade stenosis, or focal vessel cut of f seen throughout the intracranial circulation. Jugular veins: Patent bilaterally. Dural sinuses: Patent. Lung apices: There is mild emphysematous change. The imaged upper lobe lung parenchyma is otherwise c lear. Soft tissues: The visualized pharyngeal soft tissues are normal in appearance noting angiographic pha se technique. The oropharyngeal airway appears widely patent. The thyroid gland is mildly enlarged an d heterogeneous. The salivary glands are normal in appearance. No cervical lymphadenopathy is seen. Skeletal structures: The skeletal structures are osteopenic. The calvarium appears intact. The cervic al spine is maintained noting multilevel spondylosis. Orbits: The bony orbits are intact. Orbital contents are normal as visualized. Sinuses and mastoids: The paranasal sinuses are clear. The mastoid air cells are well pneumatized. IMPRESSION: 1. There is no hemorrhage, mass effect, or evidence of acute territorial ischemia by CT criteria. 2. Unremarkable CT angiogram of the brain. 3. Unremarkable CT angiogram of the neck. 4. Emphysema. ACT 112: Negative or not required by law. Electronically signed by: Pete Ivan M.D. 01/11/2024 3:24 PM
--- NOTE | 2024-01-11 16:49 | History & Physical Report ---
Date of Service January 11, 2024 Assessment & Plan (1) Dizziness: Plan: Patient is 73 year old male with PMH HTN, prediabetes, GERD, anxiety, depression, chronic insomnia, chronic back pain presented to ER with complaint of brief episode diplopia followed by vertigo type dizziness, nausea that lasted several minutes today. Chronic tinnitus without worsening In ER vitals stable. No significant electrolyte abnormality. Negative troponin CT head: There is no hemorrhage, mass effect, or evidence of acute territorial ischemia by CT criteria. CTA head and neck:. Unremarkable CT angiogram of the brain. Unremarkable CT angiogram of the neck. Throughout entire ER course patient without any recurrent dizziness episodes. Patient ambulating throughout exam room without any dizziness or noted gait abnormalities. Denies recurrent visual disturbance. Tele to monitor for arrhythmias Orthostatic vitals EKG in am TSH, Lipids, A1c in AM MRI brain If MRI positive for stroke will plan to obtain echo with bubble study PT/OT consult If recurrent symptoms, may need to consider neurology consult Will continue home azelastine and fluticasone nasal spray for allergies (2) Hypertension: Plan: Stable Continue losartan, atenolol, chlorthalidone (3) Prediabetes: Plan: A1c: 6.4 on 12/06/2023 Diet controlled (4) GERD (gastroesophageal reflux disease): Plan: Continue PPI (5) Anxiety and depression: Plan: Continue bupropion (6) Chronic pain: Plan: Chronic back pain Continue baclofen, tramadol as needed DVT Prophylaxis Lovenox SQ Full Code as per discussion with pt Follows with Dr Locke for routine care Pt was seen and care coordinated with Dr Castillo. See addendum I spent a total of 76 minutes reviewing notes, outpatient records, labs, medication, coordinating, documenting and providing care for this patient excluding time spent in the performance of separately billed services. History of Present Illness Chief Complaint: Dizziness Primary Care Provider: Scotty Locke MD Patient is 73 year old male with PMH HTN, prediabetes, GERD, anxiety, depression, chronic insomnia, chronic back pain presented to ER with complaint of dizziness. History obtained from patient and outpatient chart review. Patient states one month ago shopping when had episode diplopia lasted few seconds then later followed by dizziness described as room spinning that lasted few minutes and nausea without vomiting. No further symptoms until today. States today got out of bed walked to bathroom and had fleeting episode of diplopia followed by couple minutes of dizziness and nausea that lasted hour or so. No vomiting. Denies any recurrent dizziness or vision changes since being at ER. States has been having some nasal congestion with allergies and taking loratadine and nasal spray. He reports chronic right ear hearing loss and chronic tinnitus. Denies any worsening hearing loss or worsening tinnitus. Patient states 30 years ago episode of dizziness that thought may be vertigo but never had further problems. Denies head injury or trauma. Denies fever/chills, diaphoresis, N/V/D/C, BARAJAS, syncope, vision loss, neck pain, CP, SOB, orthopnea, palpitations, cough, sore throat, otalgia, rhinorrhea, abdominal pain, paresthesias, weakness, extremity weakness, extremity edema, rashes, urinary symptoms. Allergies Allergy/AdvReac Type Severity Reaction Status Date / Time amitriptyline Allergy Intermediate heart Verified 12/04/23 13:02 palpitations amoxicillin [From Augmentin] Allergy Intermediate Sores in Unverified 12/04/23 13:02 mouth clavulanic acid Allergy Sores in Unverified 12/04/23 13:02 [From Augmentin] mouth finasteride AdvReac Intermediate painful Verified 12/04/23 13:02 gynecomastia Home Medications Medication Instructions Recorded Confirmed Type amoxicillin 500 mg tablet 500 mg PO DAILY PRN BEFORE DENTAL 10/31/18 01/11/24 History PROCEDURES garlic 1,000 mg capsule 1 cap PO QAM 10/31/18 01/11/24 History losartan 100 mg tablet 100 mg PO QAM 10/31/18 01/11/24 History meloxicam 15 mg tablet 0 mg PO DAILY PRN Pain 10/31/18 01/11/24 History Lactobacillus 40-Bifidobact 1 cap PO QAM 10/05/19 01/11/24 History 3-S.thermophilus 100 billion cell capsule (Probiotic) atenolol 50 mg tablet 50 mg PO QAM 08/18/21 01/11/24 History lifitegrast 5 % eye drops in a 1 drp ophthalmic (eye) BID 05/22/22 01/11/24 History dropperette (Xiidra) loratadine 10 mg tablet (Claritin) 10 mg PO DAILY 05/28/23 01/11/24 History Al hyd-Mg tr-alg ac-sod bicarb 80 1 tab PO BID PRN Heartburn 10/21/23 01/11/24 History mg-14.2 mg chewable tablet (Gaviscon) azelastine 137 mcg (0.1 %) nasal 1 spray intranasal BID PRN Allergy 10/21/23 01/11/24 History spray aerosol Symptoms calcium polycarbophil 625 mg 625 mg PO DAILY 10/21/23 01/11/24 History tablet (FiberCon) chlorthalidone 25 mg tablet 12.5 mg PO DAILY 10/21/23 01/11/24 History cholecalciferol (vitamin D3) 50 50 mcg PO QAM 10/21/23 01/11/24 History mcg (2,000 unit) capsule (Vitamin D3) fluticasone propionate 50 1 spray intranasal DAILY PRN 10/21/23 01/11/24 History mcg/actuation nasal Allergy Symptoms spray,suspension (Flonase Allergy Relief) methylsulfonylmethane 1,000 mg 1,000 mg PO DAILY 10/21/23 01/11/24 History capsule (MSM) sennosides 25 mg tablet (Laxative 25 mg PO DAILY 10/21/23 01/11/24 History (sennosides)) cyanocobalamin (vitamin B-12) 500 500 mcg PO DAILY 12/04/23 01/11/24 History mcg tablet (Vitamin B-12) diclofenac sodium 1 % topical gel 2 g topical QID 12/04/23 01/11/24 History multivitamin 1 tab PO DAILY 12/04/23 01/11/24 History potassium chloride 10 mEq 10 meq PO BID 12/04/23 01/11/24 History tablet,extended release(part/cryst) tramadol 50 mg tablet 50 mg PO Q8H PRN Pain 12/04/23 01/11/24 History baclofen 10 mg tablet 5 mg PO HS 01/11/24 01/11/24 History bupropion HCl 150 mg 24 hr tablet, 150 mg PO DAILY 01/11/24 01/11/24 History extended release carboxymethylcellulose sodium 1 % 2 drp ophthalmic (eye) BID PRN Dry 01/11/24 01/11/24 History eye liquid gel drops Eye(S) dexlansoprazole 60 mg 60 mg PO HS 01/11/24 01/11/24 History capsule,biphase delayed release (Dexilant) docusate sodium 100 mg capsule 200 mg PO HS 01/11/24 01/11/24 History (Colace) hydroxyzine HCl 25 mg tablet 25 mg PO Q6H PRN Anxiety 01/11/24 01/11/24 History Past Med/Surg History Medical History (Updated 01/11/24 @ 21:11 by Evita Escamilla PA-C) Chronic pain Anxiety and depression Prediabetes Gastric artery aneurysm Calcified/surgical intervention not recommended, monitored by [facility] vascular Elbow pain R/t elbow tendon (plan for future surgery). will need assistance to move on liter per PAT RN phone interview Hematuria Peptic ulcer disease hx BPH (benign prostatic hyperplasia) Diverticulosis Chronic back pain Osteoarthritis Kidney stones GERD (gastroesophageal reflux disease) Hearing deficit BL BARAJAS Valvular heart disease Mild posterior mitral leaflet prolapse, Mild MR per 2016 stress echo Hypertension Surgical History History of surgery TIF procedure History of surgery EUS performed 06/03/2020 @ [facility] History of back surgery removal of tip of coccyx d/t a fracture S/P arthroscopy of left shoulder S/P epidural steroid injection History of arthroscopy of right shoulder History of hand surgery LEFT History of umbilical hernia repair History of hemorrhoidectomy History of tonsillectomy History of transurethral resection of prostate History of surgery GREENLIGHT PROCEDURE History of cystoscopy W/ STONE EXTRACTION History of esophagogastroduodenoscopy (EGD) History of colonoscopy W/ POLYPECTOMY History of cardiac cath 2007 - no stents Family History Grandfather (Paternal) Family hx of colon cancer Grandfather (Maternal) Family hx of colon cancer Brother FHx: bladder cancer Rheumatoid arthritis Other Myocardial infarction No family history of adverse response to anesthesia Stroke Social History Smoking Status: Former smoker Tobacco Type: Cigarettes Second Hand Exposure: No; Do You Dip or Chew Tobacco: No; Hx Alcohol Use: Yes Alcohol type: beer, wine and hard liquor Hx Substance Use: No Preferred Language: Italian Communication Ability: Effective 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 Beliefs That Will Affect Care: None Current Living Situation: Alone Feels Safe at Home: Yes Assistive Devices: Denture - Upper and Glasses Review of Systems Review of Systems: All systems reviewed & are unremarkable except as noted in HPI & below Physical Exam Physical Exam: General: no distress, WDWN Head: normocephalic, atraumatic Eyes: PERRL, EOM's intact, conjunctiva non-injected, anicteric ENT: normal inspection external ears, nose, TMs gaspar and non-bulging with some air fluid bubbles noted, mucous membranes moist Neck: supple, trachea midline Lungs: clear, no respiratory distress, no wheezing/rhonchi/rales CV: RRR, no JVD, no pretibial edema Abd: normal BS, soft, non-tender Ext: no cyanosis, no calf tenderness Neuro: A&O x 3, normal affect. Visual rutledge intact. PERRL, EOMs intact. No nystagmus, facial sensation is intact and symmetric, face is strong and symmet gatito, hearing grossly intact, Soft palate elevates symmetrically, no dysarthria, shoulder shrug intact, Tongue is midline, normal movement, no fasciculations. Strength 5/5 bilateral upper and lower extremities. Ambulating throughout exam room without difficulty and has steady gait. Skin: warm, dry Results & Data Results & Data Vital Signs (Past 12 Hours) Vital Signs Temp Pulse Pulse Resp BP BP Pulse Ox 01/11/24 16:36 81 16 152/85 H 98 01/11/24 16:13 79 01/11/24 16:00 80 14 98 01/11/24 15:30 79 16 118/77 97 01/11/24 13:39 37 C 88 18 132/85 99 O2 Del Method 01/11/24 16:36 Room Air 01/11/24 16:13 01/11/24 16:00 Room Air 01/11/24 15:30 Room Air 01/11/24 13:39 Laboratory Results Short CBC 01/11/24 Range/Units 14:01 WBC 6.91 (4.8-10.8) K/ul Hgb 16.8 (14.0-18.0) g/dl Hct 48.8 (42.0-52.0) % Plt Count 150 (130-400) K/uL BMP 01/11/24 14:01 Sodium 141 Potassium 4.3 Chloride 104 Carbon Dioxide 30 BUN 15 Creatinine 1.07 Glucose 110 H Calcium 9.4 Liver Function 01/11/24 Range/Units 14:01 Total Bilirubin 0.7 (0.2-1.0) mg/dl AST 17 (13-39) U/L ALT 23 (7-52) U/L Alkaline Phosphatase 70 (34-104) U/L Albumin 4.6 (3.4-5.0) gm/dl Diagnostic Findings Head CT 01/11/24 14:[address] OF THE BRAIN; CT ANGIOGRAM OF THE BRAIN; CT ANGIOGRAM OF THE NECK CLINICAL HISTORY: Neurological deficit. Stroke like symptoms. Dizziness. COMPARISON STUDY: CT of the brain dated 08/10/2008. TECHNIQUE: Unenhanced axial CT scan of the brain is performed. Subsequently, following the IV administration of 119 of Optiray 320, CT angiogram of the head and neck was performed from the aortic arch to the vertex. Images are reviewed in the axial, sagittal, and coronal planes. 3-D MIPS images are created and assessed. IV contrast was administered without complication. All measurements were calculated based on NASCET criteria. A dose lowering technique was utilized adhering to the principles of ALARA. CT DOSE: 1111. mGy.cm FINDINGS: Brain parenchyma: There is age-related involutional change noted minimal microangiopathic disease. Mineralization is noted in the basal ganglia. There is no hemorrhage, mass effect, or evidence of acute territorial ischemia by CT criteria. There is no evidence of enhancing mass lesion on the angiogram phase images. The ventricles, sulci, and cisterns are prominent secondary to involutional change. Gaspar-white matter differentiation is preserved. No extra- axial fluid collection is seen. Thoracic aorta: Visualized portions of the thoracic aorta are normal in caliber. The aortic arch demonstrates standard 3-vessel anatomy. Right carotid arterial system: The right common carotid artery is widely patent, as are the right internal and external carotid arteries. Left carotid arterial system: The left common carotid artery is widely patent, as are the left internal and external carotid arteries. There is mild calcified plaque in the carotid bulb. Vertebral arteries: Widely patent bilaterally and codominant. Subclavian arteries: Widely patent bilaterally. Intracranial vasculature: There is atherosclerotic calcification of the cav ernous carotid arteries. The internal carotid arteries are patent at the skull base, as are the anterior and middle cerebral arteries bilaterally. The vertebrobasilar system and posterior cerebral arteries are widely patent. The vertebral arteries are codominant. There is no aneurysm, high-grade stenosis, or focal vessel cut off seen throughout the intracranial circulation. Jugular veins: Patent bilaterally. Dural sinuses: Patent. Lung apices: There is mild emphysematous change. The imaged upper lobe lung parenchyma is otherwise clear. Soft tissues: The visualized pharyngeal soft tissues are normal in appearance noting angiographic phase technique. The oropharyngeal airway appears widely patent. The thyroid gland is mildly enlarged and heterogeneous. The salivary glands are normal in appearance. No cervical lymphadenopathy is seen. Skeletal structures: The skeletal structures are osteopenic. The calvarium appears intact. The cervical spine is maintained noting multilevel spondylosis. Orbits: The bony orbits are intact. Orbital contents are normal as visualized. Sinuses and mastoids: The paranasal sinuses are clear. The mastoid air cells are well pneumatized. IMPRESSION: 1. There is no hemorrhage, mass effect, or evidence of acute territorial ischemia by CT criteria. 2. Unremarkable CT angiogram of the brain. 3. Unremarkable CT angiogram of the neck. 4. Emphysema. ACT 112: Negative or not required by law. Electronically signed by: Pete Ivan M.D. 01/11/2024 3:24 PM Head CTA 01/11/24 14:[address] OF THE BRAIN; CT ANGIOGRAM OF THE BRAIN; CT ANGIOGRAM OF THE NECK CLINICAL HISTORY: Neurological deficit. Stroke like symptoms. Dizziness. COMPARISON STUDY: CT of the brain dated 08/10/2008. TECHNIQUE: Unenhanced axial CT scan of the brain is performed. Subsequently, following the IV administration of 119 of Optiray 320, CT angiogram of the head and neck was performed from the aortic arch to the vertex. Images are reviewed in the axial, sagittal, and coronal planes. 3-D MIPS images are created and assessed. IV contrast was administered without complication. All measurements were calculated based on NASCET criteria. A dose lowering technique was utilized adhering to the principles of ALARA. CT DOSE: 1111. mGy.cm FINDINGS: Brain parenchyma: There is age-related involutional change noted minimal microangiopathic disease. Mineralization is noted in the basal ganglia. There is no hemorrhage, mass effect, or evidence of acute territorial ischemia by CT criteria. There is no evidence of enhancing mass lesion on the angiogram phase images. The ventricles, sulci, and cisterns are prominent secondary to involutional change. Gaspar-white matter differentiation is preserved. No extra-a xial fluid collection is seen. Thoracic aorta: Visualized portions of the thoracic aorta are normal in caliber. The aortic arch demonstrates standard 3-vessel anatomy. Right carotid arterial system: The right common carotid artery is widely patent, as are the right internal and external carotid arteries. Left carotid arterial system: The left common carotid artery is widely patent, as are the left internal and external carotid arteries. There is mild calcified plaque in the carotid bulb. Vertebral arteries: Widely patent bilaterally and codominant. Subclavian arteries: Widely patent bilaterally. Intracranial vasculature: There is atherosclerotic calcification of the cavernous carotid arteries. The internal carotid arteries are patent at the skull base, as are the anterior and middle cerebral arteries bilaterally. The vertebrobasilar system and posterior cerebral arteries are widely patent. The vertebral arteries are codominant. There is no aneurysm, high-grade stenosis, or focal vessel cut off seen throughout the intracranial circulation. Jugular veins: Patent bilaterally. Dural sinuses: Patent. Lung apices: There is mild emphysematous change. The imaged upper lobe lung parenchyma is otherwise clear. Soft tissues: The visualized pharyngeal soft tissues are normal in appearance noting angiographic phase technique. The oropharyngeal airway appears widely patent. The thyroid gland is mildly enlarged and heterogeneous. The salivary glands are normal in appearance. No cervical lymphadenopathy is seen. Skeletal structures: The skeletal structures are osteopenic. The calvarium appears intact. The cervical spine is maintained noting multilevel spondylosis. Orbits: The bony orbits are intact. Orbital contents are normal as visualized. Sinuses and mastoids: The paranasal sinuses are clear. The mastoid air cells are well pneumatized. IMPRESSION: 1. There is no hemorrhage, mass effect, or evidence of acute territorial ischemia by CT criteria. 2. Unremarkable CT angiogram of the brain. 3. Unremarkable CT angiogram of the neck. 4. Emphysema. ACT 112: Negative or not required by law. Electronically signed by: Pete Ivan M.D. 01/11/2024 3:24 PM Neck CTA 01/11/24 14:[address] OF THE BRAIN; CT ANGIOGRAM OF THE BRAIN; CT ANGIOGRAM OF THE NECK CLINICAL HISTORY: Neurological deficit. Stroke like symptoms. Dizziness. COMPARISON STUDY: CT of the brain dated 08/10/2008. TECHNIQUE: Unenhanced axial CT scan of the brain is performed. Subsequently, following the IV administration of 119 of Optiray 320, CT angiogram of the head and neck was performed from the aortic arch to the vertex. Images are reviewed in the axial, sagittal, and coronal planes. 3-D MIPS images are created and asse ssed. IV contrast was administered without complication. All measurements were calculated based on NASCET criteria. A dose lowering technique was utilized adhering to the principles of ALARA. CT DOSE: 1111. mGy.cm FINDINGS: Brain parenchyma: There is age-related involutional change noted minimal microangiopathic disease. Mineralization is noted in the basal ganglia. There is no hemorrhage, mass effect, or evidence of acute territorial ischemia by CT criteria. There is no evidence of enhancing mass lesion on the angiogram phase images. The ventricles, sulci, and cisterns are prominent secondary to involutional change. Gaspar-white matter differentiation is preserved. No extra- axial fluid collection is seen. Thoracic aorta: Visualized portions of the thoracic aorta are normal in caliber. The aortic arch demonstrates standard 3-vessel anatomy. Right carotid arterial system: The right common carotid artery is widely patent, as are the right internal and external carotid arteries. Left carotid arterial system: The left common carotid artery is widely patent, as are the left internal and external carotid arteries. There is mild calcified plaque in the carotid bulb. Vertebral arteries: Widely patent bilaterally and codominant. Subclavian arteries: Widely patent bilaterally. Intracranial vasculature: There is atherosclerotic calcification of the cavernous carotid arteries. The internal carotid arteries are patent at the skull base, as are the anterior and middle cerebral arteries bilaterally. The vertebrobasilar system and posterior cerebral arteries are widely patent. The vertebral arteries are codominant. There is no aneurysm, high-grade stenosis, or focal vessel cut off seen throughout the intracranial circulation. Jugular veins: Patent bilaterally. Dural sinuses: Patent. Lung apices: There is mild emphysematous change. The imaged upper lobe lung parenchyma is otherwise clear. Soft tissues: The visualized pharyngeal soft tissues are normal in appearance noting angiographic phase technique. The oropharyngeal airway appears widely patent. The thyroid gland is mildly enlarged and heterogeneous. The salivary glands are normal in appearance. No cervical lymphadenopathy is seen. Skeletal structures: The skeletal structures are osteopenic. The calvarium appears intact. The cervical spine is maintained noting multilevel spondylosis. Orbits: The bony orbits are intact. Orbital contents are normal as visualized. Sinuses and mastoids: The paranasal sinuses are clear. The mastoid air cells are well pneumatized. IMPRESSION: 1. There is no hemorrhage, mass effect, or evidence of acute territorial ischemia by CT criteria. 2. Unremarkable CT angiogram of the brain. 3. Unremarkable CT angiogram of the neck. 4. Emphysema. ACT 112: Negative or not required by law. Electronically signed by: Pete Ivan M.D. 01/11/2024 3:24 PM Supervising Physician Co-Signing Physician Notes I have seen and examined the patient and have discussed the case with the provider above. I have reviewed the advanced practitioner's documentation, and I agree with, and take responsibility for that plan of care with the following exceptions. 73 yo M on multiple antihypertensives presents with acute self-limited vertigo after climbing a flight of stairs this morning shortly after waking up. The vertigo didn't last long. Orthostatic vitals revealed hypotension with standing today. The patient reports that he has lost 20 lbs intentionally since Aug, and had a conversation wtih his PCP about cutting back on his BP meds. They took his chlorthalidone to 12.5mg daily. We discussed stopping this altogether and he was fine with that. On exam he is asymptomatic and in NAD, VSS CV exam 2/6 TAMIKA, S1/2 heard, euvolemic Lungs, CTAB PERRL, EOMI, slight horizontal nystagmus when looking to the right-asymptomatic. Exam otherwise unremarkable. Labs/meds/ekg/images reviewed. WE discussed anticholinergic side effects with claritin that may be contributing to his dry eyes and mouth. Overall, the vertigo appears benign There are no stroke symptoms Agree with MRI to rule out acute stroke given age and risk factors. Stop chlorthalidone, cont atenolol and losartan 100mg daily Echo for closer evaluation of murmur, johanna given that his symptoms were exertional in nature today. Dispo to home tomorrow after workup. DO Jonathan
[2024-01-11] MEDS ORDERED: traMADol HCL 50 MG TABLET PO PRN (20:08)
[2024-01-11] MEDS ORDERED: FLUTICASONE PROPIONATE NA SPR 16 GM BTL NAE PRN (20:08)
[2024-01-11] MEDS ORDERED: PHARMACIST DISCHARGE MED REC CONSULT PRN (20:08)
[2024-01-11] MEDS ORDERED: POLYETHYLENE (MIRALAX) 17 GM PACK PO PRN (20:08)
[2024-01-11] MEDS ORDERED: ALUMINUM/MAGNESIUM SUSP 30 ML UDC PO PRN (20:08)
[2024-01-11] MEDS ORDERED: ARTIFICIAL TEARS OP PRN (20:18)
[2024-01-11] MEDS: POTASSIUM CHLORIDE 10 MEQ TABCR PO SCH (20:48)
[2024-01-11] MEDS: PANTOprazole 40 MG TAB PO SCH (20:49)
[2024-01-11] MEDS: DOCUSATE SODIUM 100 MG CAP PO SCH (20:49)
[2024-01-11] MEDS: BACLOFEN 10 MG TAB PO SCH (20:50)
[2024-01-11] MEDS: ENOXAPARIN INJ 40 MG/0.4 ML SYR SQ SCH (20:50)
[2024-01-11] MEDS: ACETAMINOPHEN 325 MG TAB PO PRN (20:56)
[2024-01-11] MEDS: AZELASTINE HCL 0.1% NASAL 200 SPRAYS/27,400 MCG BTL NAE PRN (21:36)
[2024-01-12 07:06] LABS: Hematocrit (blood only) 44.1 % (42.0-52.0); Mean Corpuscular Hemoglobin 29.8 pg (25.0-34.0); Mean Corpuscular Volume 87.5 fL (80.0-100.0); Mean Platelet Volume 11.4 fL (9.4-12.4); Platelet Count 119 K/uL (130-400); RDW Coefficient of Variation 12.7 % (11.5-14.5); RDW Standard Deviation 40.7 fL (36.4-46.3); Red Blood Count 5.04 M/uL (4.70-6.10); White Blood Count 5.52 K/ul (4.8-10.8)
[2024-01-12] MEDS: ATENOLOL 50 MG TABLET PO SCH (07:17)
[2024-01-12] MEDS: LOSARTAN POTASSIUM 50 MG TAB PO SCH (07:18)
[2024-01-12] MEDS: buPROPion XL 150 MG TABCR PO SCH (07:18)
[2024-01-12 07:28] LABS: BUN Creatinine Ratio 20.2 (10-20); Calcium 8.2 mg/dl (8.6-10.3); Creatinine Clr Calc Pharmacy 74.5 ml/min; Est GFR (African American) 92.9 ml/min; Est GFR (Non-African American) 80.1 ml/min; Potassium 3.6 mmol/L (3.5-5.1)
[2024-01-12] MEDS ORDERED: CHLORTHALIDONE 25 MG TAB PO SCH (09:00)
[2024-01-12 09:09] LABS: Estimated Average Glucose 131 mg/dl; Hemoglobin A1C 6.2 % (4.5-5.6)
[2024-01-12] MEDS: ACETAMINOPHEN 1,000 MG/100 ML VIAL IV STA (09:26)
[2024-01-12] MEDS: GADOBUTROL 65ML VIAL IV ONE (10:31)
--- NOTE | 2024-01-12 10:56 | Magnetic Resonance Report ---
Brain MRI WITH AND WITHOUT CONTRAST HISTORY: diplopia, vertigo, r/o stroke TECHNIQUE: Multiplanar multisequence MRI of the brain was performed both before and after the intrave nous administration of contrast. COMPARISON STUDY: Head CT 01/11/2024. FINDINGS: There are no areas of restricted diffusion to suggest acute infarction. The midline structu res are intact. The paranasal sinuses are clear. The mastoid air cells are clear. The ventricles and sulci are within normal limits for age. There is no mass, hematoma, midline shift. The major vascular flow-voids at the skull base are well maintained. Postcontrast sequences show no areas of abnormal e nhancement. IMPRESSION: No acute intracranial abnormality. ACT 112: Negative or not required by law. Electronically signed by: Gideon Lockhart M.D. 01/12/2024 10:54 AM
--- NOTE | 2024-01-12 13:35 | Discharge Summary ---
Discharge Summary Date of Service January 12, 2024 Admission HPI Per Admitting Provider Patient is 73 year old male with PMH HTN, prediabetes, GERD, anxiety, depression, chronic insomnia, chronic back pain presented to ER with complaint of dizziness. History obtained from patient and outpatient chart review. Patient states one month ago shopping when had episode diplopia lasted few seconds then later followed by dizziness described as room spinning that lasted few minutes and nausea without vomiting. No further symptoms until today. States today got out of bed walked to bathroom and had fleeting episode of diplopia followed by couple minutes of dizziness and nausea that lasted hour or so. No vomiting. Denies any recurrent dizziness or vision changes since being at ER. States has been having some nasal congestion with allergies and taking loratadine and nasal spray. He reports chronic right ear hearing loss and chronic tinnitus. Denies any worsening hearing loss or worsening tinnitus. Patient states 30 years ago episode of dizziness that thought may be vertigo but never had further problems. Denies head injury or trauma. Denies fever/chills, diaphoresis, N/V/D/C, BARAJAS, syncope, vision loss, neck pain, CP, SOB, orthopnea, palpitations, cough, sore throat, otalgia, rhinorrhea, abdominal pain, paresthesias, weakness, extremity weakness, extremity edema, rashes, urinary symptoms. Principal Dx & Hospital Course #1 = Principal Diagnosis Updated Medication List Medication Instructions Recorded Confirmed Type amoxicillin 500 mg tablet 500 mg PO DAILY PRN BEFORE DENTAL 10/31/18 01/11/24 History PROCEDURES garlic 1,000 mg capsule 1 cap PO QAM 10/31/18 01/11/24 History losartan 100 mg tablet 100 mg PO QAM 10/31/18 01/11/24 History meloxicam 15 mg tablet 0 mg PO DAILY PRN Pain 10/31/18 01/11/24 History Lactobacillus 40-Bifidobact 1 cap PO QAM 10/05/19 01/11/24 History 3-S.thermophilus 100 billion cell capsule (Probiotic) atenolol 50 mg tablet 50 mg PO QAM 08/18/21 01/11/24 History lifitegrast 5 % eye drops in a 1 drp ophthalmic (eye) BID 05/22/22 01/11/24 History dropperette (Xiidra) loratadine 10 mg tablet (Claritin) 10 mg PO DAILY 05/28/23 01/11/24 History Al hyd-Mg tr-alg ac-sod bicarb 80 1 tab PO BID PRN Heartburn 10/21/23 01/11/24 History mg-14.2 mg chewable tablet (Gaviscon) azelastine 137 mcg (0.1 %) nasal 1 spray intranasal BID PRN Allergy 10/21/23 01/11/24 History spray aerosol Symptoms calcium polycarbophil 625 mg 625 mg PO DAILY 10/21/23 01/11/24 History tablet (FiberCon) chlorthalidone 25 mg tablet 12.5 mg PO DAILY 10/21/23 01/11/24 History cholecalciferol (vitamin D3) 50 50 mcg PO QAM 10/21/23 01/11/24 History mcg (2,000 unit) capsule (Vitamin D3) fluticasone propionate 50 1 spray intranasal DAILY PRN 10/21/23 01/11/24 History mcg/actuation nasal Allergy Symptoms spray,suspension (Flonase Allergy Relief) methylsulfonylmethane 1,000 mg 1,000 mg PO DAILY 10/21/23 01/11/24 History capsule (MSM) sennosides 25 mg tablet (Laxative 25 mg PO DAILY 10/21/23 01/11/24 History (sennosides)) cyanocobalamin (vitamin B-12) 500 500 mcg PO DAILY 12/04/23 01/11/24 History mcg tablet (Vitamin B-12) diclofenac sodium 1 % topical gel 2 g topical QID 12/04/23 01/11/24 History multivitamin 1 tab PO DAILY 12/04/23 01/11/24 History potassium chloride 10 mEq 10 meq PO BID 12/04/23 01/11/24 History tablet,extended release(part/cryst) tramadol 50 mg tablet 50 mg PO Q8H PRN Pain 12/04/23 01/11/24 History baclofen 10 mg tablet 5 mg PO HS 01/11/24 01/11/24 History bupropion HCl 150 mg 24 hr tablet, 150 mg PO DAILY 01/11/24 01/11/24 History extended release carboxymethylcellulose sodium 1 % 2 drp ophthalmic (eye) BID PRN Dry 01/11/24 01/11/24 History eye liquid gel drops Eye(S) dexlansoprazole 60 mg 60 mg PO HS 01/11/24 01/11/24 History capsule,biphase delayed release (Dexilant) docusate sodium 100 mg capsule 200 mg PO HS 01/11/24 01/11/24 History (Colace) hydroxyzine HCl 25 mg tablet 25 mg PO Q6H PRN Anxiety 01/11/24 01/11/24 History Hospital Stay Data Consultations 01/11/24 16:19 ED Decision to Admit Stat Diagnostic Imagining Performed 01/11/24 14:10 CT angio head w con Stat CT angio neck with con Stat CT head/brain wo con Stat 01/12/24 07:53 MRI Brain [MR brain wo/w con] Urgent
--- NOTE | 2024-01-12 15:19 | Hospitalist Progress Note ---
Date of Service January 12, 2024 Assessment & Plan (1) Chronic pain: (2) Anxiety and depression: (3) Prediabetes: (4) Hypertension: (5) Diplopia: (6) Dizziness: Plan Patient is 73 year old male with PMHx significant for HTN, prediabetes, GERD, anxiety, depression, chronic insomnia, chronic back pain who presented to the ER with complaint of a brief episode of diplopia followed by vertigo type dizziness and nausea that lasted several minutes on the day of admission. Has a Hx of chronic tinnitus without worsening on arrival. Vertigo Diplopia Strokelike Symptoms In ER vitals stable. No significant electrolyte abnormality. Negative troponin CT head: There is no hemorrhage, mass effect, or evidence of acute territorial ischemia by CT criteria. CTA head and neck:. Unremarkable CT angiogram of the brain. Unremarkable CT angiogram of the neck. Throughout entire ER course patient without any recurrent dizziness episodes. Patient ambulating throughout exam room without any dizziness or noted gait abnormalities. Denies recurrent visual disturbance. Orthostatic vitals noted slight drop in blood pressure on standing EKG with NSR TSH wnl, Lipid panel with elevated triglycerides and VLDL cholesterol, hgba1c of 6.2, indicating prediabetes MRI brain with no noted acute stroke Echo with noted right ventricle dilation and echodensity on posterior mitral valve UA ordered and pending lyme testing ordered and pending PT/OT consult- pending, however pt has been pacing room and ambulating hallway with no issues Consider Neurology consult Home chlorthalidone has been held to help with blood pressure, consider decreasing doses of the other antihypertensives as needed Stable, no further episodes at this time Mitral valve Prolapse Echodensity on posterior mitral valve Echo noting hypodensity on posterior mitral valve as noted above Recommended possible YAN for further evaluation Cardiology consulted for further recs, appreciated Thrombocytopenia Noted acute drop in platelets today Continue to monitor Consider peripheral smear if persistent Hyperlipidemia Started on atorvastatin Prediabetes Glucose levels elevated Hgba1 of 6.2 Diet and exercise for further management encouraged PCP followup Hypertension Blood pressure has been on lower end Home chlorthalidone held Continue losartan, atenolol at this time GERD (gastroesophageal reflux disease) Continue PPI Anxiety and depression Continue bupropion Chronic Back pain Continue baclofen, tramadol as needed Per pt's GI provider, avoid NSAIDs in setting of severe GERD IV tylenol as needed + K pad Consider PT/OT Diet: DVT Prophylaxis: Bethnox SQ Dispo: Likely home once further workup complete and medically stable Admission and Anticipated Discharge Date Admission Date: January 11, 2024 Subjective pt was seen multiple times during the day. States has had no return of symptoms. Often pacing the room with no acute distress. Review of Systems Review of Systems: All systems reviewed & are unremarkable except as noted in Subjective Physical Exam Physical Exam: General: Alert, oriented. No acute distress Skin: No noted rashes or bruises Psych: Appropriate mood and affect Neuro: No gross deficits HEENT: NC/AT Chest: Nontender to palpation. CV: RRR, + murmur Resp: Breath sounds clear bilaterally, no increased effort of breathing. Abdomen: Soft, nontender, nondistended. Extremities: No edema in lower extremities bilaterally. Results & Data Results & Data Vital Signs (Past 12 Hours) Vital Signs Temp Pulse Pulse Resp BP Pulse Ox O2 Del Method 01/12/24 11:34 36.5 C 74 18 104/67 97 Room Air 01/12/24 08:07 36.5 C 73 18 128/81 97 Room Air 01/12/24 07:[address] 01/11/24 14:[address] OF THE BRAIN; CT ANGIOGRAM OF THE BRAIN; CT ANGIOGRAM OF THE NECK CLINICAL HISTORY: Neurological deficit. Stroke like symptoms. Dizziness. COMPARISON STUDY: CT of the brain dated 08/10/2008. TECHNIQUE: Unenhanced axial CT scan of the brain is performed. Subsequently, following the IV administration of 119 of Optiray 320, CT angiogram of the head and neck was performed from the aortic arch to the vertex. Images are reviewed in the axial, sagittal, and coronal planes. 3-D MIPS images are created and assessed. IV contrast was administered without complication. All measurements were calculated based on NASCET criteria. A dose lowering technique was utilized adhering to the principles of ALARA. CT DOSE: 1111. mGy.cm FINDINGS: Brain parenchyma: There is age-related involutional change noted minimal microangiopathic disease. Mineralization is noted in the basal ganglia. There is no hemorrhage, mass effect, or evidence of acute territorial ischemia by CT criteria. There is no evidence of enhancing mass lesion on the angiogram phase images. The ventricles, sulci, and cisterns are prominent secondary to involutional change. Gaspar-white matter differentiation is preserved. No extra- axial fluid collection is seen. Thoracic aorta: Visualized portions of the thoracic aorta are normal in caliber. The aortic arch demonstrates standard 3-vessel anatomy. Right carotid arterial system: The right common carotid artery is widely patent, as are the right internal and external carotid arteries. Left carotid arterial system: The left common carotid artery is widely patent, as are the left internal and external carotid arteries. There is mild calcified plaque in the carotid bulb. Vertebral arteries: Widely patent bilaterally and codominant. Subclavian arteries: Widely patent bilaterally. Intracranial vasculature: There is atherosclerotic calcification of the cavernous carotid arteries. The internal carotid arteries are patent at the skull base, as are the anterior and middle cerebral arteries bilaterally. The vertebrobasilar system and posterior cerebral arteries are widely patent. The vertebral arteries are codominant. There is no aneurysm, high-grade stenosis, or focal vessel cut off seen throughout the intracranial circulation. Jugular veins: Patent bilaterally. Dural sinuses: Patent. Lung apices: There is mild emphysematous change. The imaged upper lobe lung parenchyma is otherwise clear. Soft tissues: The visualized pharyngeal soft tissues are normal in appearance noting angiographic phase technique. The oropharyngeal airway appears widely patent. The thyroid gland is mildly enlarged and heterogeneous. The salivary glands are normal in appearance. No cervical lymphadenopathy is seen. Skeletal structures: The skeletal structures are osteopenic. The calvarium appears intact. The cervical spine is maintained noting multilevel spondylosis. Orbits: The bony orbits are intact. Orbital contents are normal as visualized. Sinuses and mastoids: The paranasal sinuses are clear. The mastoid air cells are well pneumatized. IMPRESSION: 1. There is no hemorrhage, mass effect, or evidence of acute territorial ischemia by CT criteria. 2. Unremarkable CT angiogram of the brain. 3. Unremarkable CT angiogram of the neck. 4. Emphysema. ACT 112: Negative or not required by law. Electronically signed by: Pete Ivan M.D. 01/11/2024 3:24 PM Head CTA 01/11/24 14:[address] OF THE BRAIN; CT ANGIOGRAM OF THE BRAIN; CT ANGIOGRAM OF THE NECK CLINICAL HISTORY: Neurological deficit. Stroke like symptoms. Dizziness. COMPARISON STUDY: CT of the brain dated 08/10/2008. TECHNIQUE: Unenhanced axial CT scan of the brain is performed. Subsequently, following the IV administration of 119 of Optiray 320, CT angiogram of the head and neck was performed from the aortic arch to the vertex. Images are reviewed in the axial, sagittal, and coronal planes. 3-D MIPS images are created and assessed. IV contrast was administered without complication. All measurements were calculated based on NASCET criteria. A dose lowering technique was util ized adhering to the principles of ALARA. CT DOSE: 1111. mGy.cm FINDINGS: Brain parenchyma: There is age-related involutional change noted minimal microangiopathic disease. Mineralization is noted in the basal ganglia. There is no hemorrhage, mass effect, or evidence of acute territorial ischemia by CT criteria. There is no evidence of enhancing mass lesion on the angiogram phase images. The ventricles, sulci, and cisterns are prominent secondary to involutional change. Gaspar-white matter differentiation is preserved. No extra- axial fluid collection is seen. Thoracic aorta: Visualized portions of the thoracic aorta are normal in caliber. The aortic arch demonstrates standard 3-vessel anatomy. Right carotid arterial system: The right common carotid artery is widely patent, as are the right internal and external carotid arteries. Left carotid arterial system: The left common carotid artery is widely patent, as are the left internal and external carotid arteries. There is mild calcified plaque in the carotid bulb. Vertebral arteries: Widely patent bilaterally and codominant. Subclavian arteries: Widely patent bilaterally. Intracranial vasculature: There is atherosclerotic calcification of the cavernous carotid arteries. The internal carotid arteries are patent at the skull base, as are the anterior and middle cerebral arteries bilaterally. The vertebrobasilar system and posterior cerebral arteries are widely patent. The vertebral arteries are codominant. There is no aneurysm, high-grade stenosis, or focal vessel cut off seen throughout the intracranial circulation. Jugular veins: Patent bilaterally. Dural sinuses: Patent. Lung apices: There is mild emphysematous change. The imaged upper lobe lung parenchyma is otherwise clear. Soft tissues: The visualized pharyngeal soft tissues are normal in appearance noting angiographic phase technique. The oropharyngeal airway appears widely patent. The thyroid gland is mildly enlarged and heterogeneous. The salivary glands are normal in appearance. No cervical lymphadenopathy is seen. Skeletal structures: The skeletal structures are osteopenic. The calvarium appears intact. The cervical spine is maintained noting multilevel spondylosis. Orbits: The bony orbits are intact. Orbital contents are normal as visualized. Sinuses and mastoids: The paranasal sinuses are clear. The mastoid air cells are well pneumatized. IMPRESSION: 1. There is no hemorrhage, mass effect, or evidence of acute territorial ischemia by CT criteria. 2. Unremarkable CT angiogram of the brain. 3. Unremarkable CT angiogram of the neck. 4. Emphysema. ACT 112: Negative or not required by law. Electronically signed by: Pete Ivan M.D. 01/11/2024 3:24 PM Neck CTA 01/11/24 14:[address] OF THE BRAIN; CT ANGIOGRAM OF THE BRAIN; CT ANGIOGRAM OF THE NECK CLINICAL HISTORY: Neurological deficit. Stroke like symptoms. Dizziness. COMPARISON STUDY: CT of the brain dated 08/10/2008. TECHNIQUE: Unenhanced axial CT scan of the brain is performed. Subsequently, following the IV administration of 119 of Optiray 320, CT angiogram of the head and neck was performed from the aortic arch to the vertex. Images are reviewed in the axial, sagittal, and coronal planes. 3-D MIPS images are created and assessed. IV contrast was administered without complication. All measurements were calculated based on NASCET criteria. A dose lowering technique was utilized adhering to the principles of ALARA. CT DOSE: 1111. mGy.cm FINDINGS: Brain parenchyma: There is age-related involutional change noted minimal microangiopathic disease. Mineralization is noted in the basal ganglia. There is no hemorrhage, mass effect, or evidence of acute territorial ischemia by CT criteria. There is no evidence of enhancing mass lesion on the angiogram phase images. The ventricles, sulci, and cisterns are prominent secondary to involutional change. Gaspar-white matter differentiation is preserved. No extra- axial fluid collection is seen. Thoracic aorta: Visualized portions of the thoracic aorta are normal in caliber. The aortic arch demonstrates standard 3-vessel anatomy. Right carotid arterial system: The right common carotid artery is widely patent, as are the right internal and external carotid arteries. Left carotid arterial system: The left common carotid artery is widely patent, as are the left internal and external carotid arteries. There is mild calcified plaque in the carotid bulb. Vertebral arteries: Widely patent bilaterally and codominant. Subclavian arteries: Widely patent bilaterally. Intracranial vasculature: There is atherosclerotic calcification of the cavernous carotid arteries. The internal carotid arteries are patent at the skull base, as are the anterior and middle cerebral arteries bilaterally. The vertebrobasilar system and posterior cerebral arteries are widely patent. The vertebral arteries are codominant. There is no aneurysm, high-grade stenosis, or focal vessel cut off seen throughout the intracranial circulation. Jugular veins: Patent bilaterally. Dural sinuses: Patent. Lung apices: There is mild emphysematous change. The imaged upper lobe lung parenchyma is otherwise clear. Soft tissues: The visualized pharyngeal soft tissues are normal in appearance noting angiographic phase technique. The oropharyngeal airway appears widely patent. The thyroid gland is mildly enlarged and heterogeneous. The salivary glands are normal in appearance. No cervical lymphadenopathy is seen. Skeletal structures: The skeletal structures are osteopenic. The calvarium appears intact. The cervical spine is maintained noting multilevel spondylosis. Orbits: The bony orbits are intact. Orbital contents are normal as visualized. Sinuses and mastoids: The paranasal sinuses are clear. The mastoid air cells are well pneumatized. IMPRESSION: 1. There is no hemorrhage, mass effect, or evidence of acute territorial ischemia by CT criteria. 2. Unremarkable CT angiogram of the brain. 3. Unremarkable CT angiogram of the neck. 4. Emphysema. ACT 112: Negative or not required by law. Electronically signed by: Pete Ivan M.D. 01/11/2024 3:24 PM Brain MRI 01/12/24 07:53 Brain MRI WITH AND WITHOUT CONTRAST HISTORY: diplopia, vertigo, r/o stroke TECHNIQUE: Multiplanar multisequence MRI of the brain was performed both before and after the intravenous administration of contrast. COMPARISON STUDY: Head CT 01/11/2024. FINDINGS: There are no areas of restricted diffusion to suggest acute infarction. The midline structures are intact. The paranasal sinuses are clear. The mastoid air cells are clear. The ventricles and sulci are within normal limits for age. There is no mass, hematoma, midline shift. The major vascular flow-voids at the skull base are well maintained. Postcontrast sequences show no areas of abnormal enhancement. IMPRESSION: No acute intracranial abnormality. ACT 112: Negative or not required by law. Electronically signed by: Gideon Lockhart M.D. 01/12/2024 10:54 AM
[2024-01-12] MEDS: LORATADINE 10 MG TAB PO ONE (15:49)
[2024-01-12] MEDS ORDERED: MELATONIN 3 MG TAB PO PRN (20:05)
[2024-01-12] MEDS: SODIUM CHLORIDE 0.65% NA SOLN 45 ML (OCEAN) PRN (20:33)
[2024-01-12] MEDS: LORazepam 0.5 MG TAB PO PRN (20:46)
[2024-01-12] MEDS ORDERED: ACETAMINOPHEN 1,000 MG/100 ML VIAL IV PRN (20:55)
[2024-01-12] MEDS: oxyCODONE HCL IR 5 MG TAB (IMMEDIATE RELEASE) PO PRN (21:24)
[2024-01-12 22:16] LABS: Appearance Urine Clear (Clear); Bilirubin Urine Negative (Negative); Blood Urine Negative (Negative); Color Urine Yellow; Glucose Urine UA Negative (Negative); Ketones Urine Negative (Negative); Leukocyte Esterase Urine Negative (Negative); Nitrite Urine Negative (Negative); Protein Urine Negative (Negative); Specific Gravity Urine 1.013 (1.000-1.030); Urobilinogen Urine Negative (Negative); pH Urine 6.5 (4.5-7.5)
--- NOTE | 2024-01-12 22:31 | Electrocardiogram Report ---
Test Reason : Blood Pressure : / mmHG Vent. Rate : 080 BPM Atrial Rate : 080 BPM P-R Int : 160 ms QRS Dur : 104 ms QT Int : 378 ms P-R-T Axes : 050 013 009 degrees QTc Int : 435 ms Normal sinus rhythm Normal ECG When compared with ECG of 23-NOV-2022 07:42, No significant change was found Confirmed by Johny Coy ([id number]) on 01/12/2024 10:30:52 PM Referred By: Confirmed By:Johny Coy
--- OUTSIDE RECORDS SUMMARY | 2024-01-13 01:58 | External Medical Summary | Summary of Care ---
Author Name Unknown Organization [facility] Address [address] [place] [address] Phone [phone] Care Team Providers Care Correctional Case Manager Name Role Phone Scotty Locke MD Primary Care Provider [phone] Reason for Visit * Reason Onset Date Comments Test Results 12/20/2023 Encounter Details Date Type Department Care Team (Late st Contact Info) Description 12/20/2023 Telephone Family Practice [facility] [address] [facility] [address] Scotty Locke MD [address] [place] [address] Test Results Allergies Active Allergy Reactions Criticality Noted Date Comments Amitriptyline 09/13/2005 rapid heart Amoxicillin-Pot Clavulanate Medium 09/04/20 23 bumps/itchiness on lower lip Finasteride Medium 12/29/2013 Painful gynecomastia November 2013 Other - Drugs 01/19/2004 T-Stat topical ointment for acne caused rash documented as of this encounter (statuses as of 12/24/2023) Medications Medication Sig Dispensed Refills Start Date End Date Status Cholecalciferol (VITAMIN D3) 5000 UNITS Tablet Take 1 Tablet by mouth in the morning. 0 Active Multiple Vitamins-Minerals (MULTIVITAMIN ADULT) TABS Take 1 Tab by mouth daily. 0 Active Cyanocobalamin (B-12) 2500 MCG TABS Take by mouth. 0 Active Dextran 70-Hypromellose 0.1-0.3 % Ophthalmic SolutionIndications :both eyes Instill into eye as needed. Indications: both eyes 0 Active Calcium Polycarbophil 625 MG Oral Tablet Take 1 Tablet by mouth in the morning. 0 Active Probiotic Product (PROBIOTIC ACIDOPHILUS BIOBEADS) Capsule Take 1 Cap by mouth three times a day with meals. 0 Active sucralfate (CARAFATE) 1 GM Tablet Take 1 Tab by mouth 4 times a day before meals and at bedtime. 120 Tab 11 12/04/2019 Active Alum Hydroxide-Mag Carbonate (GAVISCON) 95-358 MG/15ML SUSP Use 2-3 times daily as needed for heartburn 355 mL 11 03/17/2020 Active Atenolol 50 MG Oral Tablet (Tenormin) Take 1 Tablet by mouth in the morning. 90 Tablet 3 12/10/2022 Active Losartan Potassium 100 MG Oral Tablet (Cozaar) Take 1 Tablet by mouth in the morning. 90 Tablet 3 12/10/2022 Active hydrOXYzine HCl 25 MG Oral TabletIndications:G AD (generalized anxiety disorder) Take 1 Tablet by mouth every 6 hours as needed for Anxiety. 30 Tablet 3 12/10/2022 Active Baclofen 10 MG Oral Tablet (Lioresal) Take by mouth daily. 0 Active MSM 1000 MG Oral Capsule Take by mouth. 0 Active Refresh 1.4-0.6 % Ophthalmic Solution (polyvinyl alcohol-povidone PF) 1 Drop as needed. 0 Active Dexlansoprazole 60 MG Oral Capsule Delayed Release Take 1 Capsule by mouth in the morning. 0 Active Azelastine HCl 0.1 % Nasal Solution (Astelin) Administer 1 [place] into nostril in the morning and 1 [place] before bedtime. 30 mL 12 06/21/2023 Active Chlorthalidone 25 MG Oral Tablet (Hygroton) Take 1 Tablet by mouth in the morning. In the morning.. 90 Tablet 1 09/15/2023 Active traMADol HCl 50 MG Oral Tablet (Ultram)Indications :Controlled substance agreement signed,Chronic bilateral low back pain without sciatica Take 2 Tablets by mouth every 8 hours as needed for Pain, Moderate. Continuing prescription 90 Tablet 1 10/31/2023 Active Potassium Chloride ER 10 MEQ Oral Capsule Extended Release Take 1 Capsule by mouth in the morning and 1 Capsule before bedtime. 60 Capsule 5 11/08/2023 Active Potassium Chloride [place] ER 10 MEQ Oral Tablet Extended Release Take 1 Tablet by mouth in the morning and 1 Tablet before bedtime. 180 Tablet 3 11/12/2023 Active Garlic 1000 MG Oral Capsule Take 1 Capsule by mouth in the morning. 0 Active Xiidra 5 % Ophthalmic Solution (Lifitegrast) Instill into eye. 0 Acti ve Hair Skin and Nails Formula Oral Tablet Take by mouth. 0 A ctive Fluticasone Propionate 50 MCG/ACT Nasal Suspension (Flonase) Administer 1 [place] into nostril in the morning. 0 Active Diclofenac Sodium 1 % External Gel (Voltaren) Apply topically to affected area. Apply to affected areas as directed 0 Active buPROPion HCl ER (XL) 150 MG Oral Tablet Extended Release 24 Hour (Wellbutrin XL) Take 1 Tablet by mouth in the morning. 90 Tablet 3 12/11/2023 Active documented as of this encounter (statuses as of 12/24/2023) Active Problems Problem Noted Date Diagnosed Date Depression with anxiety 12/12/2023 Sensorineural hearing loss (SNHL) of right ear 0 03/28/2023 Ageusia 12/10/2022 S/P TURP 12/07/2022 MEREDITH (generalized anxiety disorder) 12/07/2022 Lumbar degenerative disc disease 12/07/2022 Chronic insomnia 03/06/2021 Superior mesenteric artery aneurysm 03/06/2021 Overview: Follows with vascular yearly Prediabetes 09/22/2018 Overview: Per Prediabetes protocol #1 Controlled substance agreement signed 07/19/2016 Overview: Managed by kane for tramadol. To view the Medication Usage Agreement, go to Action, Patient Files. Gastroesophageal reflux disease without esophagi tis 03/06/2010 HTN, goal below 130/80 07/15/2009 Overview: Modified per HTN Taxonomy. Mitral valve regurgitation 08/09/2008 Overview: Mild per jul 2016 stress echo documented as of this encounter (statuses as of 12/24/2023) Resolved Problems Problem Noted Date Diagnosed Date Resolved Date Overweight (BMI 25.0-29.9) 12/07/2022 1 10/30/2022 Carotid disease, bilateral 02/26/2018 0 10/19/2019 Bilateral hearing loss 07/04/201712/07 Thrush 01/16/2016 07/19/2016 Screening for prostate cancer 05/02/2015 07/04/2017 Skin tag 05/02/2015 07/04/2017 Bronchitis, complicated 10/01/201404/10 Sudden hearing loss 06/10/2014 05/02/20 15 Chronic bilateral low back p ain without sciatica 04/29/2014 12/07/2022 Impaired fasting glucose 04/29/2014 Cough 01/19/2014 04/29/2014 Lymph node enlargement 09/03/201304/29 Skin tag 09/03/2013 04/29/2014 Prostate cancer screening in formation given during patient encounter 03/24/2013 04/29/2014 General medical exam 03/24/2013 017 General medical exam 03/24/2013 013 Dermatitis 10/31/2011 04/29/2014 IBS (irritable bowel syndrome) 10/31/2011 04/29/2014 Meniere's disease, cochleovestibular, active 1 04/29/2014 Acute prostatitis 02/01/2011 04/29/2014 History of tobacco use 10/23/201004/29 Dysfunction of eustachian tube 08/18/2010 08/18/2010 Dysfunction of eustachian tube 07/31/2010 08/18/2010 Dyspnea and respiratory abnormality 03/06/2010 04/29/2014 Overview: ICD-10 update of inactive term Chronic rhinitis 03/06/2010 04/29/2014 Subjective tinnitus 03/06/2010 04/29/20 14 Other specified forms of hearing loss 03/06/2010 07/04/2017 RECURRENT ACUTE SINUSITIS 03/06/2010 Temporomandibular joint diso rders, unspecified 03/06/2010 04/29/2014 Chronic otitis externa 03/06/201004/29 Dysfunction of eustachian tube 03/06/2010 04/29/2014 Vitamin D deficiency 01/17/2010 013 Overview: Vitamin d 16.6 Dyslipidemia, goal to be determined 08/16/2009 11/23/2009 Overview: Per Lipid Taxonomy. Mitral valve prolapse 08/09/20082013 Major depressive disorder 08/20/2007 Overview: ICD-10 update of inactive term ADVANCE DIRECTIVE INFORMATION 10/23/2005 03/06/2021 Overview: No, Advance Directive brochure given to patient at prior appointment. Diverticulosis of colon 10/17/200504/10 Overview: sigmoid diverticulosis on colonoscopy Achilles tendinitis 08/22/2004 08/22/20 11 IMPOTENCE, ORGANIC ORIGN 04/29/2003 Elevated prostate specific antigen (PSA) 04/29/2003 03/24/2013 Mixed dyslipidemia 10/13/2001 9 Overview: Per Lipid Taxonomy. Ingrowing nail 08/22/2011 BENIGN HYPERTENSION 07/15/20 09 Overview: Modified per HTN Taxonomy. STOMACH FUNCTION DIS NOS Peptic ulcer 04/29/2014 LOSS OF TEETH, ACQUIRED 03/09 Family disruption 08/22/2011 Overview: ICD-10 update of inactive term BPH without obstruction/lowe r urinary tract symptoms 08/22/2011 Chronic prostatitis 08/22/20 11 FAMILY HX-GI MALIGNANCY 03/09 Displacement of lumbar inter vertebral disc without myelopathy 04/29/2014 documented as of this encounter (statuses as of 12/24/2023) Immunizations Name Administration Dates Next Due COVID-19 mRNA, LNP-s, No Pre serve, 2-Dose Series (Moderna) 12/24/2020,11/26/2020 COVID-19, mRNA, LNP-s, PF, B ooster, 100mcg/0.5mg (Moderna) 12/18/2021,05/22/2021 Pneumococcal Conjugate Vacc, 13 Valent (Prevnar) 06/19/2016 Pneumococcal Polysaccharide PPV23 (Pneumovax) 07/14/2020,05/02/2015 RSV Vac., Recomb, Adjuvant, PF,0.5 Ml (Arexvy) 05/30/2023 Season Influenza, Quad, PF, Adjuvanted, 65+ Yrs, IM (FLUAD) 06/29/2020 Seasonal Influenza Virus Vac cine, Unspecified Formulation 07/05/2019,06/12/2019,06/12/2019,06/24,06/27/2017,07/12/2016,06/04/2014 Seasonal Influenza, Quadriva lent Hd (Fluzone Hd) 05/25/2023,05/26/2022,07/04/2021 Seasonal Influenza, Quadriva lent, No Preserve, IM 06/27/2017,07/12/2016 Seasonal Influenza, Split, I IV3, With Preserve, Inj 05/21/2015,06/04/2014 Seasonal Influenza, Trivalen t, Adjuvanted, 65+ yrs 06/12/2019,06/24/2018 TD - Tetanus/Diptheria (ADULT) 01/16/2006 TDAP (age 10 and older)(Boostrix) 10/13/2021 TDAP (age 11 and older)(Adacel) 08/22/2011 Varicella Zoster Vaccine (Adult) 03/24/2013 Zoster Vaccine Recombinant (Shingrix) 01/12/2021 documented as of this encounter Social History Tobacco Use Types Packs/Day Years Used Date Smoking Tobacco: Former Cigarettes 1 10 0 02/07/1965 - 02/07/1975 Smokeless Tobacco: Never Alcohol Use Standard Drinks/Week Comments Yes 0 (1 standard drink = 0.6 oz pur e alcohol) occ PHQ-2 Answer Date Recorded PHQ Adult Total Score 0 03/07/2021 Hunger Vital Sign Answer Date Recorded Within the past 12 months, y ou worried that your food would run out before you got the money to buy more. Never true 03/07/20 21 Within the past 12 months, t he food you bought just didn't last and you didn't have money to get more. Never true 03/07/2021 Sex and Gender Information Value Date Recorded Sex Assigned at Not on file Gender Identity Not on file Sexual Orientation Not on file Job Start Date Occupation Industry Not on file Not on file Not on file documented as of this encounter Functional Status Functional Status Response Date of Assess ment Are you deaf or do you have serious difficulty hearing? Yes-patient almost deaf in right ear 03/16/2021 Are you blind or do you have serious difficulty seeing, even when wearing glasses? No 03/16/2021 Do you have serious difficul ty walking or climbing stairs? (5 years old or older) No 03/16/2021 Do you have difficulty dress ing or bathing? (5 years old or older) No 03/16/2021 Because of a physical, menta l, or emotional condition, do you have difficulty doing errands alone such as visiting a doctor s office or shopping? (15 years old or older) No 03/16/2021 Cognitive Status Response Date of Assessm ent Because of a physical, menta l, or emotional condition, do you have serious difficulty concentrating, remembering, or making decisions? (5 years old or older) No 03/16/2021 documented as of this encounter Miscellaneous Notes * Telephone Encounter - Nery León LPN - 12/24/2023 12:07 PM EDT Spoke with patient. No further questions or concerns at this time. * Telephone Encounter - Scotty Locke MD - 12/22/2023 8:56 PM EDT Yes. In detail. * Telephone Encounter - Chrissy Horton LPN - 12/20/2023 3:06 PM EDT Were these labs reviewed at ? * Telephone Encounter - Yoan David OSA - 12/20/2023 10:08 AM EDT Who is Requesting Test Results: Venkat Linder Primary Care Provider : Scotty Locke MD Tests Results Requested : Labs Date of Test : 12/06/23 Location of Test: [facility] Ordering Provider: Dr Locke Patient has been made aware that the turnaround time for test results are typically as follows: Laboratory results = within 2-3 days ([facility]), 3-5 days (Non-[facility], ie. [facility]) Urine Cultures = within 2-3 days depending on growth within the culture Pathology results (biopsy results/PAP) = 1-2 weeks Radiology results = about 1 week Cologuard results = within 2 weeks from the shipment date COVID testing = about 24 hours documented in this encounter Plan of Treatment Upcoming Encounters Date Type Department Care Team (Late st Contact Info) Description 06/15/2024 1:20 PM EDT Office Visit [facility] [address] [place] [address] Scotty Locke MD [address] [place] [address] Scheduled Procedures Name Priority Associated Diagnoses Date/Ti me COLONOSCOPY FLEXIBLE PROXIMAL DIAGNOSTIC Recall History of colon polyps Health Maintenance Due Date Last Done Comments COVID-19 Vaccine (2022- season) 2023 12/18/2021, 05/22/2021, 12/24/2020, Additional history exists COLONOSCOPY-EVERY 5 YRS AGES 18-100 10/07/2024 10/07/2019, 11/30/2016, 11/30/2016, Additional history exists GFR 12/05/2024 12/06/2023, 10/10, 12/11/2022, Additional history exists HbA1c 12/05/2024 12/06/2023, 0 12/2022, 12/12/2021, Additional history exists Albumin/Creatinine Ratio 12/05/2026 024, 05/21/2015, 03/31/2015, Additional history exists Lipid Panel 12/05/2028 12/06/2023, 0 12/2022, 12/12/2021, Additional history exists DTaP,Tdap,and Td Vaccines (3 - Td or Tdap) 10/13/2031 10/13/2021, 08/22/2011, 01/16/2006 AAA Screening Completed 12/02/2017, 01/05/2014 Pneumococcal Vaccine: 65+ Years Completed 07/14/2020, 06/19/2016, 05/02/2015 Zoster Vaccines Completed 01/11/2022, 0502/2021, 03/24/2013 Influenza Vaccine (FLU shot) Completed , 05/26/2022, 07/04/2021, Additional history exists GARDASIL-HPV IMMUNIZATION SERIES Aged Out No longer eligible based on patient's age to complete this topic Hepatitis B Aged Out No longer eligi ble based on patient's age to complete this topic MENINGOCOCCAL (MENACTRA/MENVEO) Aged Out No longer eligible based on patient's age to complete this topic documented as of this encounter Medical Devices Implanted Type Area Control Panel Operator Crude Unit Device Identifier Shelf Expiration Date Model / Serial / Lot Cartridge Esophyx Z+ - [id number] Implanted:Qty : 26 on 03/16/2021 by Luis Enrique Wilkerson MD at OR 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 Code Status History Code Status Date Activated Date Inactivated Comments Full Code 11/27/2013 9:29 AM 11/27/2013 6:15 PM This order reflects the patients wishes and were consensually agreed upon. Care Teams Correctional Case Manager Relationship Specialty Start Date End Date Scotty Locke MD [address] [place] [address] PCP - General Family Medicine 03/07/21 documented as of this encounter
--- OUTSIDE RECORDS SUMMARY | 2024-01-13 01:58 | External Medical Summary | Summary of Care ---
Author Name Unknown Organization [facility] Address [address] [place] [address] Phone [phone] Care Team Providers Care Sweeper Driver Name Role Phone Scotty Locke MD Primary Care Provider [phone] Reason for Visit * Reason Onset Date Comments Order Request 12/06/2023 Lipid, BMP Encounter Details Date Type Department Care Team (Late st Contact Info) Description 12/06/2023 Telephone Family Practice [facility] [address] [facility] [address] Scotty Locke MD [address] [facility] [address] Order Request (Lipid, BMP) Allergies Active Allergy Reactions Criticality Noted Date Comments Amitriptyline 09/13/2005 rapid heart Amoxicillin-Pot Clavulanate Medium 09/04/20 23 bumps/itchiness on lower lip Finasteride Medium 12/29/2013 Painful gynecomastia November 2013 Other - Drugs 01/19/2004 T-Stat topical ointment for acne caused rash documented as of this encounter (statuses as of 12/06/2023) Medications Medication Sig Dispensed Refills Start Date [...] for heartburn 355 mL 11 03/17/2020 Active Meloxicam 15 MG Oral TabletIndications:L umbar degenerative disc disease Take by mouth 1 Tablet in the morning. Once daily as needed. 90 Tablet 1 10/30/2021 Active Atenolol 50 MG Oral Tablet (Tenormin) [...] 0.1 % Nasal Solution (Astelin) Administer 1 [place] into nostril in the morning and 1 [place] before bedtime. 30 mL 12 06/21/2023 Active Cetirizine HCl 10 MG Oral Tablet (ZyrTEC Allergy) Take 1 Tablet by mouth in the morning. 0 Active Chlorthalidone 25 MG Oral Tablet (Hygroton) [...] before bedtime. 180 Tablet 3 11/12/2023 Active metroNIDAZOLE 500 MG Oral Tablet (Flagyl) 1 Tablet. 0 11/25/2023 Active Cephalexin 500 MG Oral Capsule (Keflex) Take 1 Capsule by mouth in the morning and 1 Capsule at noon and 1 Capsule in the evening and 1 Capsule before bedtime. 0 11/25/2023 Active Amoxicillin 875 MG Oral Tablet Take 1 Tablet by mouth in the morning and 1 Tablet before bedtime. 0 11/27/2023 Active Garlic 1000 MG Oral Capsule Take 1 Capsule by mouth in the morning. 0 Active Xiidra 5 % Ophthalmic Solution (Lifitegrast) Instill into eye. 0 Acti ve Hair Skin and Nails Formula Oral Tablet Take by mouth. 0 A ctive Fluticasone Propionate 50 MCG/ACT Nasal Suspension (Flonase) Administer 1 [place] into nostril in the morning. 0 Active Diclofenac Sodium 1 % External Gel (Voltaren) Apply topically to affected area. Apply to affected areas as directed 0 Active documented as of this encounter (statuses as of 12/06/2023) Active Problems Problem Noted Date Diagnosed Date Sensorineural hearing loss (SNHL) of right ear [...] as of this encounter (statuses as of 12/06/2023) Resolved Problems Problem Noted Date Diagnosed Date [...] as of this encounter (statuses as of 12/06/2023) Immunizations Name Administration Dates Next Due COVID-19 [...] Telephone Encounter - Nery León LPN - 12/06/2023 8:40 AM EDT Ordered. Spoke with lab. They have patients labs to use. Notified patient. No further questions or concerns at this time. * Telephone Encounter - Zechariah Dumont OSA - 12/06/2023 8:23 AM EDT Pt calling to ask if Dr. Locke can order a lipid panel and BMP. Pt had lab work done today and stated he fasted due to thinking the panel orders were in his chart. Pt requesting high priority due to already having his blood taken and not wanting to fast again. documented in this encounter Plan of Treatment Upcoming Encounters Date Type Department Care Team (Late st Contact Info) Description 12/11/2023 1:40 PM EDT Office Visit [facility] [address] [place] [address] Scotty Locke MD [address] [place] [address] Pending Results Name Type Priority Associated Diagnoses Date /Time BASIC METABOLIC PANEL Lab Routine Prediabetes 12/06/2023 7:00 AM EDT LIPID PANEL WITH DIRECT LDL IF TG IS HIGH Lab Routine Lipid screening 12/06/2023 7:00 AM EDT Scheduled Orders Name Type Priority Associated Diagnoses Orde r Schedule BASIC METABOLIC PANEL Lab Routine Prediabetes Expected: 12/06/2023 (Approximate), Expires: 12/05/2024 LIPID PANEL WITH DIRECT LDL IF TG IS HIGH Lab Routine Lipid screening Expected: 12/06/2023, Expires: 12/05/2024 Scheduled Procedures Name Priority Associated Diagnoses Date/Ti me COLONOSCOPY FLEXIBLE PROXIMAL DIAGNOSTIC Recall History of colon polyps Health Maintenance Due Date Last Done Comments Albumin/Creatinine Ratio 05/21/2018 015, 03/31/2015, 01/06/2015 Depression Screening 03/07/2022 03/07/2021 COVID-19 Vaccine ( season) 2023 12/18/2021, 05/22/2021, 12/24/2020, Additional history exists HbA1c 12/12/2023 12/11/2022, 04/0 01/2022, 03/17/2020, Additional history exists COLONOSCOPY-EVERY 5 YRS AGES 18-100 10/07/2024 10/07/2019, 11/30/2016, 11/30/2016, Additional history exists GFR 10/22/2024 10/22/2023, 04/0 12/2022, 12/12/2021, Additional history exists Lipid Panel 12/12/2027 12/11/2022, 04/0 01/2022, 03/17/2020, Additional history exists DTaP,Tdap,and Td Vaccines (3 - Td or Tdap) 10/13/2031 10/13/2021, 08/22/2011, 01/16/2006 AAA Screening Completed 12/02/2017, 01/05/2014 Pneumococcal Vaccine: 65+ Years Completed 07/14/2020, 06/19/2016, 05/02/2015 Zoster Vaccines Completed 01/11/2022, 05/0 02/2021, 03/24/2013 Influenza Vaccine (FLU shot) Completed , [...] this encounter Medical Devices Implanted Type Area Process Operator Device Identifier Shelf Expiration Date Model / Serial / Lot Cartridge Esophyx Z+ - [id number] Implanted:Qty : 26 on 03/16/2021 by Luis Enrique Wilkerson MD at OR [facility] N/A: Esophagus [employer] 06/20/2022 [id number] / / [id number] documented as of this encounter Visit Diagnoses Diagnosis Prediabetes- Primary Other abnormal glucose Lipid screening Screening for lipoid disorders documented in this encounter Advance Directives Documents on File Type Date Recorded 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 Care Teams Sweeper Driver Relationship Specialty Start Date End Date Scotty Locke MD [address] [place] [address] PCP - General Family Medicine 03/07/21 documented as of this encounter
--- OUTSIDE RECORDS SUMMARY | 2024-01-13 01:58 | External Medical Summary | Summary of Care ---
Author Name Unknown Organization [facility] Address [address] [place] [address] Phone [phone] Care Team Providers Care Patient Centered Care Specialist Name Role Phone Scotty Locke MD Primary Care Provider [phone] Reason for Visit * Reason Onset Date Comments MyCode Nonconsent - Not interested at this time 12/11/2023 Encounter Details Date Type Department Care Team (Late st Contact Info) Description 12/11/2023 Orders Only Outcomes [facility] Department [address] [place] [address] Nancy Alejandro CHRA MyCode Nonconsent Documentation Allergies Active Allergy Reactions Criticality Noted Date Comments Amitriptyline 09/13/2005 rapid heart Amoxicillin-Pot Clavulanate Medium 09/04/20 bumps/itchiness on lower lip Finasteride Medium 12/29/2013 Painful gynecomastia November 2013 Other - Drugs 01/19/2004 T-Stat topical ointment for acne caused rash documented as of this encounter (statuses as of 12/11/2023) Medications Medication Sig Dispensed Refills Start Date End Date Status Cholecalciferol (VITAMIN D3) 5000 UNITS Tablet Take 1 Tablet by mouth in the morning. 0 Active Multiple Vitamins-Minerals (MULTIVITAMIN ADULT) TABS Take 1 Tab by mouth daily. 0 Active Cyanocobalamin (B-12) 2500 MCG TABS Take by mouth. 0 Active Dextran 70-Hypromellose 0.1-0.3 % Ophthalmic SolutionIndication s:both eyes Instill into eye as needed. Indications: [...] meals and at bedtime. 120 Tab 11 0 Active Alum Hydroxide-Mag Carbonate (GAVISCON) 95-358 MG/15ML SUSP Use 2-3 times daily as needed for heartburn 355 mL 11 0 Active Meloxicam 15 MG Oral TabletIndications: Lumbar degenerative disc disease Take by mouth 1 Tablet in the morning. Once daily as needed. 90 Tablet 1 2 Active Atenolol 50 MG Oral Tablet (Tenormin) Take 1 Tablet by mouth in the morning. 90 Tablet 3 3 Active Losartan Potassium 100 MG Oral Tablet (Cozaar) Take 1 Tablet by mouth in the morning. 90 Tablet 3 3 Active hydrOXYzine HCl 25 MG Oral TabletIndications: MEREDITH (generalized anxiety disorder) Take 1 Tablet by mouth every 6 hours as needed for Anxiety. 30 Tablet 3 3 Active Baclofen 10 MG Oral Tablet (Lioresal) Take by mouth daily. 0 Active MSM 1000 MG Oral Capsule Take by mouth. 0 Active Refresh 1.4-0.6 % Ophthalmic Solution (polyvinyl alcohol-povidone PF) 1 Drop as needed. 0 Active Dexlansoprazole 60 MG Oral Capsule Delayed Release Take 1 Capsule by mouth in the morning. 0 Active Azelastine HCl 0.1 % Nasal Solution (Astelin) Administer 1 [place] into nostril in the morning and 1 [place] before bedtime. 30 mL 12 3 Active Chlorthalidone 25 MG Oral Tablet (Hygroton) Take 1 Tablet by mouth in the morning. In the morning.. 90 Tablet 1 4 Active traMADol HCl 50 MG Oral Tablet (Ultram)Indication s:Controlled substance agreement signed,Chronic bilateral low back pain without sciatica Take 2 Tablets by mouth every 8 hours as needed for Pain, Moderate. Continuing prescription 90 Tablet 1 4 Active Potassium Chloride ER 10 MEQ Oral Capsule Extended Release Take 1 Capsule by mouth in the morning and 1 Capsule before bedtime. 60 Capsule 5 4 Active Potassium Chloride [place] ER 10 MEQ Oral Tablet Extended Release Take 1 Tablet by mouth in the morning and 1 Tablet before bedtime. 180 Tablet 3 4 Active Garlic 1000 MG Oral Capsule Take 1 Capsule by mouth in the morning. 0 Active Xiidra 5 % Ophthalmic Solution (Lifitegrast) Instill into eye. 0 Active Hair Skin and Nails Formula Oral Tablet Take by mouth. 0 Active Fluticasone Propionate 50 MCG/ACT Nasal Suspension (Flonase) Administer 1 [place] into nostril in the morning. 0 Active Diclofenac Sodium 1 % External Gel (Voltaren) Apply topically to affected area. Apply to affected areas as directed 0 Active Cetirizine HCl 10 MG Oral Tablet (ZyrTEC Allergy) Take 1 Tablet by mouth in the morning. 0 12/11/19 24 Discontinued metroNIDAZOLE 500 MG Oral Tablet (Flagyl) 1 Tablet. 0 4 12/11/19 24 Discontinued documented as of this encounter (statuses as of 12/11/2023) Active Problems Problem Noted Date Diagnosed Date [...] as of this encounter (statuses as of 12/11/2023) Resolved Problems Problem Noted Date Diagnosed Date [...] as of this encounter (statuses as of 12/11/2023) Immunizations Name Administration Dates Next Due COVID-19 [...] No 03/16/2021 documented as of this encounter Progress Notes * Nancy Alejandro CHRA - 12/11/2023 12:58 PM EDT MyCode Nonconsent Documentation Venkat Linder was approached in the clinic regarding participation in the MyCode Project and did not consent. documented in this encounter Plan of Treatment Upcoming Encounters Date Type Department Care Team (Latest Contact Info) Description 12/11/2023 1:40 PM EDT Office Visit Family Practice [facility] [address] [place] [id number] Scotty Locke MD [address] [place] [address] Prediabetes*; Superior mesenteric artery aneurysm (HCC); Nonrheumatic mitral valve regurgitation; HTN, goal below 130/80; Gastroesophageal reflux disease without esophagitis; Ageusia; Lumbar degenerative disc disease; Sensorineural hearing loss (SNHL) of right ear, unspecified hearing status on contralateral side; S/P TURP; Chronic insomnia; MEREDITH (generalized anxiety disorder) Scheduled Procedures Name Priority Associated Diagnoses Date/Ti me COLONOSCOPY FLEXIBLE PROXIMAL DIAGNOSTIC Recall History of colon polyps Health Maintenance Due Date Last Done Comments Depression Screening 03/07/2022 03/07/2021 COVID-19 Vaccine ( - 2022- season) 2023 12/18/2021, 05/22/2021, 12/24/2020, Additional history exists COLONOSCOPY-EVERY 5 YRS AGES 18-100 10/07/2024 10/07/2019, 11/30/2016, 11/30/2016, Additional history exists GFR 12/05/2024 12/06/2023, 10/10, 12/11/2022, Additional history exists HbA1c 12/05/2024 12/06/2023, 04/0 12/2022, 12/12/2021, Additional history exists Albumin/Creatinine Ratio 12/05/2026 024, 05/21/2015, 03/31/2015, Additional history exists Lipid Panel 12/05/2028 12/06/2023, 040 12/2022, 12/12/2021, Additional history exists DTaP,Tdap,and Td Vaccines (3 - Td or Tdap) 10/13/2031 10/13/2021, 08/22/2011, 01/16/2006 AAA Screening Completed 12/02/2017, 01/05/2014 Pneumococcal Vaccine: 65+ Years Completed 07/14/2020, 06/19/2016, 05/02/2015 Zoster Vaccines Completed 01/11/2022, 050 02/2021, 03/24/2013 Influenza Vaccine (FLU shot) Completed [...] this encounter Medical Devices Implanted Type Area Social Science Manager Device Identifier Shelf Expiration Date Model / Serial / Lot Cartridge Esophyx Z+ - [id number] Implanted:Qty : 26 on 03/16/2021 by Luis Enrique Wilkerson MD at OR [facility] N/A: Esophagus [email or web address] 06/20/2022 [id number] / / [id number] documented as of this encounter Advance Directives Documents on File Type Date Recorded 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 Care Teams Patient Centered Care Specialist Relationship Specialty Start Date End Date Scotty Locke MD [address] [place] [id number] PCP - General Family Medicine 03/07/21 documented as of this encounter
--- OUTSIDE RECORDS SUMMARY | 2024-01-13 01:58 | External Medical Summary | Summary of Care ---
Author Name Unknown Organization [facility] Address [address] [place] [address] Phone [phone] Care Team Providers Care Boatswain'S Mate Name Role Phone Scotty Locke MD Primary Care Provider [phone] Reason for Visit * Reason Comments Physical-Exam Pt here for cpe with multiple concerns to address Encounter Details Date Type Department Care Team (Latest Contact Info) Description 12/11/2023 1:40 PM EDT [facility] [address] [facility] [address] Scotty Locke MD [address] [facility] [place] [address] Prediabetes*; Superior mesenteric artery aneurysm (HCC); Nonrheumatic mitral valve regurgitation; HTN, goal below 130/80; Gastroesophageal reflux disease without esophagitis; Ageusia; Lumbar degenerative disc disease; Sensorineural hearing loss (SNHL) of right ear, unspecified hearing status on contralateral side; S/P TURP; Chronic insomnia; Depression with anxiety Allergies Active Allergy Reactions Criticality Noted Date Comments Amitriptyline 09/13/2005 rapid heart Amoxicillin-Pot Clavulanate Medium 09/04/20 23 bumps/itchiness on lower lip Finasteride Medium 12/29/2013 Painful gynecomastia November 2013 Other - Drugs 01/19/2004 T-Stat topical ointment for acne caused rash documented as of this encounter (statuses as of 12/12/2023) Medications Medication Sig Dispensed Refills Start Date End Date Status Cholecalciferol (VITAMIN D3) 5000 UNITS Tablet Take 1 Tablet by mouth in the morning. 0 Active Multiple Vitamins-Minerals (MULTIVITAMIN ADULT) TABS Take 1 Tab by mouth daily. 0 Active Cyanocobalamin (B-12) 2500 MCG TABS Take by mouth. 0 Active Dextran 70-Hypromellose 0.1-0.3 % Ophthalmic SolutionIndicatio ns:both eyes Instill into eye as needed. Indications: [...] for heartburn 355 mL 11 0 Active Atenolol 50 MG Oral Tablet (Tenormin) Take 1 Tablet by mouth in the morning. 90 Tablet 3 3 Active Losartan Potassium 100 MG Oral Tablet (Cozaar) Take 1 Tablet by mouth in the morning. 90 Tablet 3 3 Active hydrOXYzine HCl 25 MG Oral TabletIndications :MEREDITH (generalized anxiety disorder) Take 1 Tablet by [...] 0.1 % Nasal Solution (Astelin) Administer 1 [place] into nostril in the morning and 1 [place] before bedtime. 30 mL 12 3 Active Chlorthalidone 25 MG Oral Tablet (Hygroton) Take 1 Tablet by mouth in the morning. In the morning.. 90 Tablet 1 4 Active traMADol HCl 50 MG Oral Tablet (Ultram)Indicatio ns:Controlled substance agreement signed,Chronic bilateral low back pain [...] 50 MCG/ACT Nasal Suspension (Flonase) Administer 1 [place] into nostril in the morning. 0 Active Diclofenac Sodium 1 % External Gel (Voltaren) Apply topically to affected area. Apply to affected areas as directed 0 Active buPROPion HCl ER (XL) 150 MG Oral Tablet Extended Release 24 Hour (Wellbutrin XL) Take 1 Tablet by mouth in the morning. 90 Tablet 3 4 Active Meloxicam 15 MG Oral TabletIndications :Lumbar degenerative disc disease Take by mouth 1 Tablet in the morning. Once daily as needed. 90 Tablet 1 2 024 Discontinued(Kayla carranza) Cetirizine HCl 10 MG Oral Tablet (ZyrTEC Allergy) Take 1 Tablet by mouth in the morning. 0 024 Discontinued metroNIDAZOLE 500 MG Oral Tablet (Flagyl) 1 Tablet. 0 4 024 Discontinued Cephalexin 500 MG Oral Capsule (Keflex) Take 1 Capsule by mouth in the morning and 1 Capsule at noon and 1 Capsule in the evening and 1 Capsule before bedtime. 0 4 024 Discontinued Amoxicillin 875 MG Oral Tablet Take 1 Tablet by mouth in the morning and 1 Tablet before bedtime. 0 4 024 Discontinued documented as of this encounter (statuses as of 12/12/2023) Active Problems Problem Noted Date Diagnosed Date [...] as of this encounter (statuses as of 12/12/2023) Resolved Problems Problem Noted Date Diagnosed Date [...] as of this encounter (statuses as of 12/12/2023) Immunizations Name Administration Dates Next Due COVID-19 [...] on file documented as of this encounter Last Filed Vital Signs Vital Sign Reading Time Taken Comments Blood Pressure 118/70 12/11/2023 1:00 PM EDT Pulse 75 12/11/2023 1:00 PM EDT Temperature 36.4 C (97.5 F) 12/11/2023 1:00 PM ED T Respiratory Rate 18 12/11/2023 1:00 PM EDT Oxygen Saturation 93% 12/11/2023 1:00 PM EDT Inhaled Oxygen Concentration - - Weight 78.9 kg (174 lb) 12/11/2023 1:00 PM EDT Height 180.3 cm (5' 11") 12/11/2023 1:00 PM EDT Body Mass Index 24.27 12/11/2023 1:00 PM EDT documented in this encounter Functional Status Functional Status Response [...] No 03/16/2021 documented as of this encounter Patient Instructions * Patient Instructions* Scotty Locke MD - 12/11/2023 1:51 PM EDT Venkat Linder [id number] Benefits of Quitting Smoking Why should I quit smoking? Smoking is bad for you and bad for others around you. Smoking causes cancer, heart attacks, hardening of the arteries, bronchitis, emphysema, cough, shortness of breath, wrinkles, and premature aging. It stains teeth and fingers, irritates the eyes, furs the tongue, and causes bad breath. People are living longer today than their parents did, so it makes sense to work on staying healthy and independent. One of the best ways to do this is to quit smoking. Benefits of quitting smoking It takes time to reverse many years' worth of smoking damage to your body, but some benefits of quitting smoking begin immediately. For example, you're financially better off on day one. Your health starts to improve right away, too, because you remove a former constant source of irritation from your lungs. People may comment that you no longer cough. Your blood circulation is likely to improve, so your hands and feet may feel warmer. Your teeth, breath, and fingers are no longer a turn-off. Benefits that you're less aware of also begin to occur. These include better resistance to colds and respiratory infections, less likelihood of major heart and circulation problems, less risk of high blood pressure or stroke, and less risk of developing cancer. The following arguments are often presented by smokers as justifications for their continuing to smoke: "I have to sometime, so I might as well enjoy life until then." True, but as a smoker you're much more likely to of a heart attack or cancer - neither of whichare very pleasant ways to go. "I'm only hurting myself." True, if you don't count the heartache and grief you may cause your loved ones by your early or permanent disability, or the damage of your smoke to others. "Lots of people who smoke live to ripe old ages in perfect health." True, but this is rare. Nearly all smokers have significant health problems. "Smoking is one of my pleasures. I don't want to quit." Smoking is associated with pleasure because the nicotine in tobacco is an addictive drug. Your bodywill continue to crave a regular supply until you can overcome the habit. Smoking is always a disadvantage to your health and that of your loved ones. "It's my choice and I choose to smoke." True. It is your choice. In a survey of older former smokers, more than 90% quit on their own because they decided to do so. The main reasons they gave for quitting were wanting to stay healthy, following health care provider's advice, regaining control of their lives, and making a loved one happy . [place] Department of Health Quit Line [employer] Free Quitline 4-962 QUIT NOW ( ) Your insurance company may also have more information and helpful programs to help you quit. Some may even help cover some of the costs. For example, [facility] members can call to find out about their smoking cessation program and medication coverage. Developed by Leigh Awan MD, for [employer]. Published by [employer]. Last modified: 2006-01-18 Last reviewed: 2005-11-07 This content is reviewed periodically and is subject to change as new health information becomes available. The information is intended to inform and educate and is not a replacement for medical evaluation, advice, diagnosis or treatment by a healthcare professional. Adult Health Advisor 2006.4 Index Adult Health Advisor 2006.4 Credits Copyright 2006 [employer] and/or one of its subsidiaries. All Rights Reserved. documented in this encounter Progress Notes * Scotty Locke MD - 12/12/2023 3:08 PM EDT SUBJECTIVE: Venkat Linder is a 73 year old male. Chief Complaint Patient presents with Physical-Exam Pt here for cpe with multiple concerns to address HPI: Alex is a very pleasant 73 year old male here for a routine visit. [facility] Today he admits he is very depressed due to the amount of time he spends at doctors and loneliness at home. He has some family in the area but they are minimally helpful or closewith him at best. We reviewed his entire medical history today in detail, including all medicationsand labs. I reassured him that for 73 years old he is quite healthy, even though he doesn't feel that way. I reminded him that his kidneys, liver, heart, lungs, and brain are all heathy, and that most of his problems are pain related or "functional" issues that do not actually shorten his lifespan.He was quite happy to receive this news. I enjoy talking with Alex at his appointments. Patient Active Problem List Diagnosis Code Mitral valve regurgitation I34.0 HTN, goal below 130/80 I10 Gastroesophageal reflux disease without esophagitis K21.9 Controlled substance agreement signed Z79.899 Prediabetes R73.03 Chronic insomnia F51.04 Superior mesenteric artery aneurysm (HCC) I72.8 S/P TURP Z90.79 MEREDITH (generalized anxiety disorder) F41.1 Lumbar degenerative disc disease M51.36 Ageusia R43.2 Sensorineural hearing loss (SNHL) of right ear H90.5 Current Outpatient Medications Medication Sig Dispense Refill Cholecalciferol (VITAMIN D3) 5000 UNITS Tablet Take 1 Tablet by mouth in the morning. Multiple Vitamins-Minerals (MULTIVITAMIN ADULT) TABS Take 1 Tab by mouth daily. Cyanocobalamin (B-12) 2500 MCG TABS Take by mouth. Dextran 70-Hypromellose 0.1-0.3 % Ophthalmic Solution Instill into eye as needed. Indications: botheyes Calcium Polycarbophil 625 MG Oral Tablet Take 1 Tablet by mouth in the morning. Probiotic Product (PROBIOTIC ACIDOPHILUS BIOBEADS) Capsule Take 1 Cap by mouth three times a day with meals. sucralfate (CARAFATE) 1 GM Tablet Take 1 Tab by mouth 4 times a day before meals and at bedtime. 120 Tab 11 Alum Hydroxide-Mag Carbonate (GAVISCON) 95-358 MG/15ML SUSP Use 2-3 times daily as needed for heartburn 355 mL 11 Atenolol 50 MG Oral Tablet (Tenormin) Take 1 Tablet by mouth in the morning. 90 Tablet 3 Losartan Potassium 100 MG Oral Tablet (Cozaar) Take 1 Tablet by mouth in the morning. 90 Tablet 3 hydrOXYzine HCl 25 MG Oral Tablet Take 1 Tablet by mouth every 6 hours as needed for Anxiety. 30 Tablet 3 Baclofen 10 MG Oral Tablet (Lioresal) Take by mouth daily. MSM 1000 MG Oral Capsule Take by mouth. Refresh 1.4-0.6 % Ophthalmic Solution (polyvinyl alcohol-povidone PF) 1 Drop as needed. Dexlansoprazole 60 MG Oral Capsule Delayed Release Take 1 Capsule by mouth in the morning. Azelastine HCl 0.1 % Nasal Solution (Astelin) Administer 1 [place] into nostril in the morning and 1 [place] before bedtime. 30 mL 12 Chlorthalidone 25 MG Oral Tablet (Hygroton) Take 1 Tablet by mouth in the morning. In the morning..90 Tablet 1 traMADol HCl 50 MG Oral Tablet (Ultram) Take 2 Tablets by mouth every 8 hours as needed for Pain, Moderate. Continuing prescription 90 Tablet 1 Potassium Chloride ER 10 MEQ Oral Capsule Extended Release Take 1 Capsule by mouth in the morning and 1 Capsule before bedtime. 60 Capsule 5 Potassium Chloride [place] ER 10 MEQ Oral Tablet Extended Release Take 1 Tablet by mouth in the morning and 1 Tablet before bedtime. 180 Tablet 3 Garlic 1000 MG Oral Capsule Take 1 Capsule by mouth in the morning. Xiidra 5 % Ophthalmic Solution (Lifitegrast) Instill into eye. Hair Skin and Nails Formula Oral Tablet Take by mouth. Fluticasone Propionate 50 MCG/ACT Nasal Suspension (Flonase) Administer 1 [place] into nostril in themorning. Diclofenac Sodium 1 % External Gel (Voltaren) Apply topically to affected area. Apply to affected areas as directed buPROPion HCl ER (XL) 150 MG Oral Tablet Extended Release 24 Hour (Wellbutrin XL) Take 1 Tablet by mouth in the morning. 90 Tablet 3 No current facility-administered medications for this visit. Allergy: Review of patient's allergies indicates: Allergen Reactions Augmentin [Amoxicillin-Pot Clavulanate] bumps/itchiness on lower lip Finasteride [Finasteride] Painful gynecomastia November 2013 Amitriptyline rapid heart Other - Drugs T-Stat topical ointment for acne caused rash OBJECTIVE: BP 118/70 | Pulse 75 | Temp 36.4 C (97.5 F) (Tympanic) | Resp 18 | Ht 1.803 m (5' 11") | Wt 78.9 kg (174 lb) | SpO2 93% | BMI 24.27 kg/m | BSA 1.99 m General: alert, healthy, and no distress Head: Normocephalic, No masses, lesions, tenderness or abnormalities Neck: supple, no adenopathy, no bruits, thyroid normal size, non-tender, without nodularity Lungs: chest symmetric with normal AP diameter, no chest deformities noted, no chest wall tenderness, lungs clear to auscultation Heart: regular rate & rhythm, no murmur, and no gallops Abdomen: abdomen soft, non-tender, normal bowel sounds, and no masses or organomegaly Extremities: less than 2 second capillary refill, no joint deformities, effusion, or inflammation Neuro Exam: alert & oriented x 3 with fluent speech, no focal motor/sensory deficits, gait normal, reflexes normal and symmetric Skin: skin color, texture, turgor are normal, no rashes or significant lesions ASSESSMENT AND PLAN: (R73.03) Prediabetes (primary encounter diagnosis) Plan: diet/exercise (I72.8) Superior mesenteric artery aneurysm (HCC) Plan: no follow up needed (I34.0) Nonrheumatic mitral valve regurgitation Plan: stable (I10) HTN, goal below 130/80 Plan: stable (K21.9) Gastroesophageal reflux disease without esophagitis Plan: stable (R43.2) Ageusia Plan: working with specialists (M51.36) Lumbar degenerative disc disease Plan: quiescent (H90.5) Sensorineural hearing loss (SNHL) of right ear, unspecified hearing status on contralateralside Plan: stable (Z90.79) S/P TURP Plan: noted (F51.04) Chronic insomnia Plan: stable (F41.1) MEREDITH (generalized anxiety disorder) Plan: stable but more depressed; add wellbutrin Follow up in 6 month(s). No other complaints were offered at this time. Scotty Locke MD * Scotty Locke MD - 12/11/2023 1:51 PM EDT The following information was reviewed/discussed with the patient: Benefits & harms of screening Potential indications for follow-up testing, if/when necessary Risk of over-diagnosis, false positive findings, and radiation exposure Importance of cigarette smoking abstinence, if applicable Annual adherence to lung cancer screening Impact of comorbidities and ability or willingness to undergo diagnostic testing and/or treatment if something concerning is identified during screening. documented in this encounter Nursing Notes * Christiana Mayfield LPN - 12/11/2023 1:00 PM EDT The patient has been properly identified by confirmation of name and date of . Chief Complaint Patient presents with Physical-Exam Pt here for cpe with multiple concerns to address documented in this encounter Plan of Treatment Upcoming Encounters Date Type Department Care Team (Late st Contact Info) Description 06/15/2024 1:20 PM EDT Office Visit [facility] [address] [facility] [place] [address] Scotty Locke MD [address] [place] [id number] Scheduled Procedures Name Priority Associated Diagnoses Date/Ti [...] 07/14/2020, 06/19/2016, 05/02/2015 Zoster Vaccines Completed 01/11/2022, 02/2021, 03/24/2013 Influenza Vaccine (FLU shot) Completed [...] this encounter Medical Devices Implanted Type Area Meter Maker Device Identifier Shelf Expiration Date Model / Serial / Lot Cartridge Esophyx Z+ - [id number] Implanted:Qty : 26 on 03/16/2021 by Luis Enrique Wilkerson MD at OR [facility] N/A: Esophagus [employer] 06/20/2022 [id number] / / [id number] documented as of this encounter Visit Diagnoses Diagnosis Prediabetes- Primary Other abnormal glucose 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 Nonrheumatic mitral valve regurgitation HTN, goal below 130/80 Unspecified essential hypertension Gastroesophageal reflux disease without esophagitis Esophageal reflux Ageusia Disturbances of sensation of smell and taste Lumbar degenerative disc disease Degeneration of lumbar or lumbosacral intervertebral disc Sensorineural hearing loss (SNHL) of right ear, unspecified hearing status on contralateral side S/P TURP Other postprocedural status Chronic insomnia Insomnia, unspecified Depression with anxiety Dysthymic disorder documented in this encounter Advance Directives Documents on File Type Date Recorded 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 Care Teams Boatswain'S Mate Relationship Specialty Start Date End Date Scotty Locke MD [address] [place] [address] PCP - General Family Medicine 03/07/21 documented as of this encounter
--- OUTSIDE RECORDS SUMMARY | 2024-01-13 01:59 | External Medical Summary ---
Author Name Unknown Address Unknown Organization [id number][place] [facility] [place] [address] [facility] [address] Laboratory Report Ordering Provider Test Date Status COTY CROOK 12/06/2023 06:53:20 Final Observation Date Value Abnormality Reference (Units ) Status HbA1C 12/06/2023 06:53:20 6.4 Above high normal 4. 0-5.6 (%) Final The use of HbA1c to monitor glycemic status is based on normal hemoglobin and HbA composition. This test should not be used in patients with abnormal hemoglobin that affects the half life of the red blood cell or the in vivo glycation rates. Glucose, estimated average 12/06/2023 06:53:20 137 Above high normal <126 (mg/dL) Lucas payne Performing Location [facility] [place] [address] [facility] [address]
--- OUTSIDE RECORDS SUMMARY | 2024-01-13 01:59 | External Medical Summary ---
Author Name Unknown Address Unknown Organization [id number][place] [facility] [place] [address] [place] [address] Laboratory Report Ordering Provider Test Date Status COTY CROOK 12/06/2023 07:00:00 Final Observation Date Value Abnormality Reference (Units ) Status Triglyceride 12/06/2023 07:00:00 170 <=174 ( mg/dL) Final Triglyceride Reference Range s (mg/dL):
<150 Acceptable
150-174 Borderline high
175-499 High
>=500 Very high Cholesterol 12/06/2023 07:00:00 157 <200 (mg /dL) Final Total Cholesterol Reference Ranges (mg/dL):
<200 Desirable
200-239 Borderline high
>=240 High HDL 12/06/2023 07:00:00 47 >39 (mg/dL ) Final HDL Cholesterol Reference Ra nges (mg/dL):
>=60 High (Desirable)
<50 Low (Undesirable) For Females
<40 Low (Undesirable) For Males NON-HDL CHOLESTEROL 12/06/2023 07:00:00 110 <=159 (mg/dL) Final Non-HDL Cholesterol Referenc e Range (mg/dL):
<100 Target level for high risk ASCVD patient
<130 Optimal for general population
130-159 Near optimal for general population
160-189 Borderline High
190-219 High
>=220 Very High LDL, (calculated) 12/06/2023 07:00:00 76 <= 129 (mg/dL) Final LDL Cholesterol Reference Ra nges (mg/dL):
<70 Target level for high risk ASCVD patient
<100 Optimal for general population
100-129 Near optimal for general population
130-159 Borderline high
160-189 High
>=190 Very high Performing Location [facility] [facility] [place] [address] [facility] [address]
--- OUTSIDE RECORDS SUMMARY | 2024-01-13 01:59 | External Medical Summary ---
Author Name Unknown Address Unknown Organization [id number]:[facility] [address] - [address] [place] [address] Laboratory Report Ordering Provider Test Date Status COTY CROOK 12/06/2023 07:00:00 Final Observation Date Value Abnormality Reference (Units ) Status BUN 12/06/2023 07:00:00 15 6-20 (mg/dL) Final Creatinine 12/06/2023 07:00:00 1.1 0.6-1.2 (mg/dL) Final Glomerular filtration rate/1.73 sq M.predicted [Volume Rate/Area] in Serum, Plasma or Blood by Creatinine-based formula (CKD-EPI) 12/06/2023 07:00:00 68 >=60 (mL/min) Final eGFR is calculated based on the CKD-EPI 2020 equation Sodium 12/06/2023 07:00:00 142 135-146 (m mol/L) Final Potassium 12/06/2023 07:00:00 3.7 3.5-5.1 (m mol/L) Final Cl 12/06/2023 07:00:00 102 98-107 (mm ol/L) Final CO2 12/06/2023 07:00:00 30 22-32 (mmo l/L) Final Anion gap 12/06/2023 07:00:00 10 7-15 (mmol /L) Final Glucose 12/06/2023 07:00:00 127 Above high normal 70 -120 (mg/dL) Final Calcium 12/06/2023 07:00:00 9.7 8.4-10.2 ( mg/dL) Final Performing Location [facility] [address] - [address] [place] [address]
--- OUTSIDE RECORDS SUMMARY | 2024-01-13 01:59 | External Medical Summary | Summary of Care ---
Author Name Unknown Organization [facility] Address [address] [place] [address] Phone [phone] Care Team Providers Care Human Resource Advisor Name Role Phone Scotty Locke MD Primary Care Provider [phone] Reason for Visit * Reason Comments Outpatient Testing Encounter Details Date Type Department Care Team (Late st Contact Info) Description 12/06/2023 7:10 AM EDT Laboratory Laboratory, [facility] [address] [place] [address] [facility] [address] [place] [address] Prediabetes Allergies Active Allergy Reactions Criticality Noted Date [...] 0.1 % Nasal Solution (Astelin) Administer 1 Telephone into nostril in the morning and 1 Telephone before bedtime. 30 mL 12 06/21/2023 Active [...] 50 MCG/ACT Nasal Suspension (Flonase) Administer 1 Telephone into nostril in the morning. 0 Active [...] No 03/16/2021 documented as of this encounter Plan of Treatment Upcoming Encounters Date Type Department Care Team (Late st Contact Info) Description 12/11/2023 1:40 PM EDT Office Visit Family Practice [facility] [address] [address] Scotty Locke MD [address] [id number] Pending Results Name Type Priority Associated Diagnoses Date /Time HEMOGLOBIN A1C Lab Routine Prediabetes 12/06/2023 6:53 AM EDT ALBUMIN / CREATININE RATIO, URINE Lab Routine Prediabetes 12/06/2023 6:56 AM EDT Scheduled Procedures Name Priority Associated Diagnoses Date/Ti me COLONOSCOPY FLEXIBLE PROXIMAL DIAGNOSTIC Recall History of colon polyps Health Maintenance Due Date Last Done Comments Albumin/Creatinine Ratio 05/21/2018 015, 03/31/2015, 01/06/2015 Depression Screening 03/07/2022 03/07/2021 COVID-19 Vaccine (2022- season) 2023 12/18/2021, 05/22/2021, 12/24/2020, Additional history exists HbA1c 12/12/2023 12/11/2022, 04/0 01/2022, 03/17/2020, Additional history exists COLONOSCOPY-EVERY 5 YRS AGES 18-100 10/07/2024 10/07/2019, 11/30/2016, 11/30/2016, Additional history exists GFR 10/22/2024 10/22/2023, 04/0 12/2022, 12/12/2021, Additional history exists Lipid Panel 12/12/2027 12/11/2022, 0 01/2022, 03/17/2020, Additional history exists DTaP,Tdap,and Td Vaccines (3 - Td or Tdap) 10/13/2031 10/13/2021, 08/22/2011, 01/16/2006 AAA Screening Completed 12/02/2017, 01/05/2014 Pneumococcal Vaccine: 65+ Years Completed 07/14/2020, 06/19/2016, 05/02/2015 Zoster Vaccines Completed 01/11/2022, 0 02/2021, 03/24/2013 Influenza Vaccine (FLU shot) Completed [...] this encounter Medical Devices Implanted Type Area Diesel Dragline Operator Device Identifier Shelf Expiration Date Model / Serial / Lot Cartridge Esophyx Z+ - [id number] Implanted:Qty : 26 on 03/16/2021 by Luis Enrique Wilkerson MD at OR [facility] N/A: Esophagus [employer] 06/20/2022 [id number] / / [id number] documented as of this encounter Visit Diagnoses Diagnosis Prediabetes Other abnormal glucose documented in this encounter Advance Directives Documents on File Type Date Recorded Patient Pharmaceutical Assistant Expl anation Advance Directives and Living Will [...] and were consensually agreed upon. Care Teams Human Resource Advisor Relationship Specialty Start Date End Date Scotty Locke MD [address] [place] [id number] PCP - General Family Medicine 03/07/21 documented as of this encounter
--- OUTSIDE RECORDS SUMMARY | 2024-01-13 01:59 | External Medical Summary | Summary of Care ---
Author Name Unknown Organization [facility] Address [address] [place] [address] Phone [phone] Care Team Providers Care Popcorn Vendor Name Role Phone Scotty Locke MD Primary Care Provider [phone] Reason for Visit * Reason Comments Outpatient Testing Encounter Details Date Type Department Care Team (Late st Contact Info) Description 12/06/2023 7:10 AM EDT Laboratory Laboratory, [facility] [address] [place] [address] [facility] [address] [place] [address] Prediabetes; Lipid screening Allergies Active Allergy Reactions Criticality Noted Date [...] 0.1 % Nasal Solution (Astelin) Administer 1 [place] into nostril in the morning and 1 [place] before bedtime. 30 mL 12 06/21/2023 Active [...] 50 MCG/ACT Nasal Suspension (Flonase) Administer 1 [place] into nostril in the morning. 0 Active [...] 1:40 PM EDT Office Visit Family Practice [facility] [address] [address] Scotty Locke MD [address] [address] Pending Results Name Type Priority Associated Diagnoses Date /Time HEMOGLOBIN A1C Lab Routine Prediabetes 12/06/2023 6:53 AM EDT ALBUMIN / CREATININE RATIO, URINE Lab Routine Prediabetes 12/06/2023 6:56 AM EDT BASIC METABOLIC PANEL Lab Routine Prediabetes 12/06/2023 7:00 AM EDT LIPID PANEL WITH DIRECT LDL IF TG IS HIGH Lab Routine Lipid screening 12/06/2023 7:00 AM EDT Scheduled Procedures Name Priority Associated [...] this encounter Medical Devices Implanted Type Area Fast Food Assistant Restaurant Manager Device Identifier Shelf Expiration Date Model / Serial / Lot Cartridge Esophyx Z+ - [id number] Implanted:Qty : 26 on 03/16/2021 by Luis Enrique Wilkerson MD at OR [facility] N/A: Esophagus [employer] 06/20/2022 [id number] / / [id number] documented as of this encounter Visit Diagnoses Diagnosis Prediabetes Other abnormal glucose Lipid screening Screening for lipoid disorders documented in this encounter Advance Directives Documents on File Type Date Recorded Patient Senior System Operator Expl anation Advance Directives and Living Will [...] and were consensually agreed upon. Care Teams Popcorn Vendor Relationship Specialty Start Date End Date Scotty Locke MD [address] [id number] PCP - General Family Medicine 03/07/21 documented as of this encounter
[2024-01-13 07:30] LABS: Hematocrit (blood only) 41.9 % (42.0-52.0); Hemoglobin 14.6 g/dl (14.0-18.0); Mean Corpuscular Hemoglobin 30.4 pg (25.0-34.0); Mean Corpuscular Hgb Conc 34.8 g/dL (32.0-36.0); Mean Corpuscular Volume 87.3 fL (80.0-100.0); Mean Platelet Volume 11.5 fL (9.4-12.4); Platelet Count 120 K/uL (130-400); RDW Coefficient of Variation 12.4 % (11.5-14.5); RDW Standard Deviation 39.8 fL (36.4-46.3); White Blood Count 5.96 K/ul (4.8-10.8)
[2024-01-13 07:50] LABS: BUN Creatinine Ratio 16.5 (10-20); Calcium 8.4 mg/dl (8.6-10.3); Creatinine Clr Calc Pharmacy 64.3 ml/min; Est GFR (African American) 77.6 ml/min; Magnesium 1.6 mg/dl (1.7-2.4); Phosphorus 3.8 mg/dl (2.5-4.9); Potassium 3.5 mmol/L (3.5-5.1)
[2024-01-13] MEDS: ATORVASTATIN 20 MG TAB PO SCH (08:48)
[2024-01-13] MEDS: ONDANSETRON INJ 2 MG/ML 2 ML VIAL IV PRN (08:52)
[2024-01-13] MEDS: MAGNESIUM SULFATE / D5W 1 GM/100 ML BAG IV ONE (09:37)
--- NOTE | 2024-01-13 11:14 | Cardiology Consultation ---
Date of Consultation January 13, 2024 Assessment & Plan (1) Mitral insufficiency: (2) Mitral valve prolapse: (3) Dizziness: (4) Diplopia: Plan Patient in hospital with symptoms of dizziness and diplopia. Echocardiogram demonstrates variable degree of mitral insufficiency in associ ation with mitral valve prolapse, mitral valve leaflet thickening. Transesophageal echocardiogram requested Patient n.p.o. Procedure and risks explained to the patient we will plan on contacting an esthesia for procedure later today History of Present Illness Reason for Consultation: Abnormal echocardiogram Attending Physician: Jackeline Bailey MD History of Present Illness Patient is a 73-year-old male admitted with dizziness episodes transient diplopia. His ongoing medical record review includes 1. Mitral valve prolapse with nonrheumatic mitral valve regurgitation 2. Hypertension 3. Prediabetes 4. Superior mesenteric artery aneurysm 5. Chronic gastroesophageal reflux status post transoral fundoplication 6. Cardiac catheterization/coronary angiography 08/12/2008 without obstructive disease Echocardiogram in part of evaluation demonstrated thickening of the mitral valve leaflet with at least mild to moderate mitral insufficiency YAN requested for further evaluation Patient denies prior history of swallowing difficulties but has undergone transoral fundoplication in the remote past. No dysphagia no difficulties with anesthesia no syncope or near syncope no tachypalpitations. No fevers or chills no productive sputum Appetite and weight are stable No cardiac complaints CTA neck and brain MRI without stroke Allergies Allergy/AdvReac Type Severity Reaction Status Date / Time amitriptyline Allergy Intermediate heart Verified 12/04/23 13:02 palpitations amoxicillin [From Augmentin] Allergy Intermediate Sores in Unverified 12/04/23 13:02 mouth clavulanic acid Allergy Sores in Unverified 12/04/23 13:02 [From Augmentin] mouth finasteride AdvReac Intermediate painful Verified 12/04/23 13:02 gynecomastia Home Medications Medication Instructions Recorded Confirmed Type amoxicillin 500 mg tablet 500 mg PO DAILY PRN BEFORE DENTAL 10/31/18 01/11/24 History PROCEDURES garlic 1,000 mg capsule 1 cap PO QAM 10/31/18 01/11/24 History losartan 100 mg tablet 100 mg PO QAM 10/31/18 01/11/24 History meloxicam 15 mg tablet 0 mg PO DAILY PRN Pain 10/31/18 01/11/24 History Lactobacillus 40-Bifidobact 1 cap PO QAM 10/05/19 01/11/24 History 3-S.thermophilus 100 billion cell capsule (Probiotic) atenolol 50 mg tablet 50 mg PO QAM 08/18/21 01/11/24 History lifitegrast 5 % eye drops in a 1 drp ophthalmic (eye) BID 05/22/22 01/11/24 History dropperette (Xiidra) loratadine 10 mg tablet (Claritin) 10 mg PO DAILY 05/28/23 01/11/24 History Al hyd-Mg tr-alg ac-sod bicarb 80 1 tab PO BID PRN Heartburn 10/21/23 01/11/24 History mg-14.2 mg chewable tablet (Gaviscon) azelastine 137 mcg (0.1 %) nasal 1 spray intranasal BID PRN Allergy 10/21/23 01/11/24 History spray aerosol Symptoms calcium polycarbophil 625 mg 625 mg PO DAILY 10/21/23 01/11/24 History tablet (FiberCon) chlorthalidone 25 mg tablet 12.5 mg PO DAILY 10/21/23 01/11/24 History cholecalciferol (vitamin D3) 50 50 mcg PO QAM 10/21/23 01/11/24 History mcg (2,000 unit) capsule (Vitamin D3) fluticasone propionate 50 1 spray intranasal DAILY PRN 10/21/23 01/11/24 History mcg/actuation nasal Allergy Symptoms spray,suspension (Flonase Allergy Relief) methylsulfonylmethane 1,000 mg 1,000 mg PO DAILY 10/21/23 01/11/24 History capsule (MSM) sennosides 25 mg tablet (Laxative 25 mg PO DAILY 10/21/23 01/11/24 History (sennosides)) cyanocobalamin (vitamin B-12) 500 500 mcg PO DAILY 12/04/23 01/11/24 History mcg tablet (Vitamin B-12) diclofenac sodium 1 % topical gel 2 g topical QID 12/04/23 01/11/24 History multivitamin 1 tab PO DAILY 12/04/23 01/11/24 History potassium chloride 10 mEq 10 meq PO BID 12/04/23 01/11/24 History tablet,extended release(part/cryst) tramadol 50 mg tablet 50 mg PO Q8H PRN Pain 12/04/23 01/11/24 History baclofen 10 mg tablet 5 mg PO HS 01/11/24 01/11/24 History bupropion HCl 150 mg 24 hr tablet, 150 mg PO DAILY 01/11/24 01/11/24 History extended release carboxymethylcellulose sodium 1 % 2 drp ophthalmic (eye) BID PRN Dry 01/11/24 01/11/24 History eye liquid gel drops Eye(S) dexlansoprazole 60 mg 60 mg PO HS 01/11/24 01/11/24 History capsule,biphase delayed release (Dexilant) docusate sodium 100 mg capsule 200 mg PO HS 01/11/24 01/11/24 History (Colace) hydroxyzine HCl 25 mg tablet 25 mg PO Q6H PRN Anxiety 01/11/24 01/11/24 History Patient History Medical History Chronic pain Anxiety and depression Prediabetes Gastric artery aneurysm Calcified/surgical intervention not recommended, monitored by [facility] vascular Elbow pain R/t elbow tendon (plan for future surgery). will need assistance to move on liter per PAT RN phone interview Hematuria Peptic ulcer disease hx BPH (benign prostatic hyperplasia) Diverticulosis Chronic back pain Osteoarthritis Kidney stones GERD (gastroesophageal reflux disease) Hearing deficit BL BARAJAS Valvular heart disease Mild posterior mitral leaflet prolapse, Mild MR per 2016 stress echo Hypertension Surgical History History of surgery TIF procedure History of surgery EUS performed 06/03/2020 @ [facility] History of back surgery removal of tip of coccyx d/t a fracture S/P arthroscopy of left shoulder S/P epidural steroid injection History of arthroscopy of right shoulder History of hand surgery LEFT History of umbilical hernia repair History of hemorrhoidectomy History of tonsillectomy History of transurethral resection of prostate History of surgery GREENLIGHT PROCEDURE History of cystoscopy W/ STONE EXTRACTION History of esophagogastroduodenoscopy (EGD) History of colonoscopy W/ POLYPECTOMY History of cardiac cath 2007 - no stents Family History Grandfather (Paternal) Family hx of colon cancer Grandfather (Maternal) Family hx of colon cancer Brother FHx: bladder cancer Rheumatoid arthritis Other Myocardial infarction No family history of adverse response to anesthesia Stroke Social History Smoking Status: Former smoker Tobacco Type: Cigarettes Second Hand Exposure: No; Do You Dip or Chew Tobacco: No; Hx Alcohol Use: Yes Alcohol type: beer, wine and hard liquor Hx Substance Use: No Preferred Language: Greek Communication Ability: Effective Carpet Technician Required: No Beliefs That Will Affect Care: None Current Living Situation: Alone Other Information That Helps Us Care for You: No Feels Safe at Home: Yes Safety Concerns: Feels Safe At This Time Assistive Devices: Glasses Results & Data Vital Signs (Past 12 Hours) Vital Signs Temp Pulse Pulse Resp BP Pulse Ox O2 Del Method 01/13/24 07:47 74 01/13/24 07:30 36.7 C 69 17 129/73 96 Room Air 01/13/24 04:10 36.6 C 78 18 128/72 94 Room Air Laboratory Results Laboratory Results - last 24 hr 01/12/24 01/12/24 01/13/24 16:18 22:05 06:49 WBC 5.96 RBC 4.80 Hgb 14.6 Hct 41.9 L MCV 87.3 MCH 30.4 MCHC 34.8 RDW Std Deviation 39.8 RDW Coeff of Carmen 12.4 Plt Count 120 L MPV 11.5 Sodium 141 Potassium 3.5 Chloride 105 Carbon Dioxide 30 Anion Gap 6 BUN 18 Creatinine 1.09 Est Cr Clr Drug Dosing 64.3 Est GFR ( Amer) 77.6 Est GFR (Non-Af Amer) 67.0 BUN/Creatinine Ratio 16.5 Glucose 111 H Calcium 8.4 L Phosphorus 3.8 Magnesium 1.6 L Urine Color Yellow Urine Appearance Clear Urine pH 6.5 Ur Specific [place] 1.013 Urine Protein Negative Urine Glucose (UA) Negative Urine Ketones Negative Urine Blood Negative Urine Nitrite Negative Urine Bilirubin Negative Urine Urobilinogen Negative Ur Leukocyte Esterase Negative Lyme Disease Screen Negative
--- NOTE | 2024-01-13 11:28 | Anesthesiology Consultation ---
Date of Service January 13, 2024 Assessment & Plan (1) Encounter for pre-operative examination: Chart Review Chart Review: Acceptable Risk for Surgery History Surgery Operation Date: 01/13/24 13:00 Proposed Procedures p Transesophageal Echo w/Anesthesia - Rakan Tuttle MD Height/Weight Height: 5 ft 11 in Weight: 79.9 kg Allergies Allergy/AdvReac Type Severity Reaction Status Date / Time amitriptyline Allergy Intermediate heart Verified 12/04/23 13:02 palpitations amoxicillin [From Augmentin] Allergy Intermediate Sores in Unverified 12/04/23 13:02 mouth clavulanic acid Allergy Sores in Unverified 12/04/23 13:02 [From Augmentin] mouth finasteride AdvReac Intermediate painful Verified 12/04/23 13:02 gynecomastia Medications Home Medications Medication Instructions Recorded Confirmed Last Taken amoxicillin 500 mg tablet 500 mg PO DAILY PRN BEFORE DENTAL 10/31/18 01/11/24 Unknown PROCEDURES garlic 1,000 mg capsule 1 cap PO QAM 10/31/18 01/11/24 09/11/22 losartan 100 mg tablet 100 mg PO QAM 10/31/18 01/11/24 12/03/22 08:00 meloxicam 15 mg tablet 0 mg PO DAILY PRN Pain 10/31/18 01/11/24 11/13/22 Lactobacillus 40-Bifidobact 1 cap PO QAM 10/05/19 01/11/24 11/06/22 3-S.thermophilus 100 billion cell capsule (Probiotic) atenolol 50 mg tablet 50 mg PO QAM 08/18/21 01/11/24 01/11/24 lifitegrast 5 % eye drops in a 1 drp ophthalmic (eye) BID 05/22/22 01/11/24 12/04/22 08:00 dropperette (Xiidra) loratadine 10 mg tablet (Claritin) 10 mg PO DAILY 05/28/23 01/11/24 Unknown Al hyd-Mg tr-alg ac-sod bicarb 80 1 tab PO BID PRN Heartburn 10/21/23 01/11/24 Unknown mg-14.2 mg chewable tablet (Gaviscon) azelastine 137 mcg (0.1 %) nasal 1 spray intranasal BID PRN Allergy 10/21/23 01/11/24 Unknown spray aerosol Symptoms calcium polycarbophil 625 mg 625 mg PO DAILY 10/21/23 01/11/24 Unknown tablet (FiberCon) chlorthalidone 25 mg tablet 12.5 mg PO DAILY 10/21/23 01/11/24 01/11/24 cholecalciferol (vitamin D3) 50 50 mcg PO QAM 10/21/23 01/11/24 Unknown mcg (2,000 unit) capsule (Vitamin D3) fluticasone propionate 50 1 spray intranasal DAILY PRN 10/21/23 01/11/24 Unknown mcg/actuation nasal Allergy Symptoms spray,suspension (Flonase Allergy Relief) methylsulfonylmethane 1,000 mg 1,000 mg PO DAILY 10/21/23 01/11/24 Unknown capsule (MSM) sennosides 25 mg tablet (Laxative 25 mg PO DAILY 10/21/23 01/11/24 Unknown (sennosides)) cyanocobalamin (vitamin B-12) 500 500 mcg PO DAILY 12/04/23 01/11/24 Unknown mcg tablet (Vitamin B-12) diclofenac sodium 1 % topical gel 2 g topical QID 12/04/23 01/11/24 Unknown multivitamin 1 tab PO DAILY 12/04/23 01/11/24 Unknown potassium chloride 10 mEq 10 meq PO BID 12/04/23 01/11/24 01/11/24 tablet,extended release(part/cryst) tramadol 50 mg tablet 50 mg PO Q8H PRN Pain 12/04/23 01/11/24 Unknown baclofen 10 mg tablet 5 mg PO HS 01/11/24 01/11/24 Unknown bupropion HCl 150 mg 24 hr tablet, 150 mg PO DAILY 01/11/24 01/11/24 Unknown extended release carboxymethylcellulose sodium 1 % 2 drp ophthalmic (eye) BID PRN Dry 01/11/24 01/11/24 Unknown eye liquid gel drops Eye(S) dexlansoprazole 60 mg 60 mg PO HS 01/11/24 01/11/24 01/10/24 capsule,biphase delayed release (Dexilant) docusate sodium 100 mg capsule 200 mg PO HS 01/11/24 01/11/24 Unknown (Colace) hydroxyzine HCl 25 mg tablet 25 mg PO Q6H PRN Anxiety 01/11/24 01/11/24 Unknown Active Medications Generic Name Dose Route Start Last Admin [facility] Reason Stop Dose Admin Acetaminophen 650 mg 01/11/24 20:08 01/11/24 20:56 Acetaminophen 325 Mg Tab PO 02/10/24 20:07 650 mg Q4H PRN Administration Pain or Fever Atenolol 50 mg 01/12/24 09:00 01/13/24 08:48 Atenolol 50 Mg Tablet PO 02/11/24 08:59 50 mg QAM MARILOU Administration Atorvastatin Calcium 20 mg 01/13/24 09:00 01/13/24 08:48 Atorvastatin 20 Mg Tab PO 02/12/24 08:59 20 mg QAM MARILOU Administration Azelastine HCl 1 sprays 01/11/24 20:08 01/11/24 21:36 Azelastine Hcl 0.1% Nasal 200 Sprays/27,400 Mcg Btl TREVON 02/10/24 20:07 1 sprays BID PRN Administration Allergy Symptoms Baclofen 5 mg 01/11/24 21:00 01/12/24 20:32 Baclofen 10 Mg Tab PO 02/10/24 20:59 5 mg HS MARILOU Administration Bupropion HCl 150 mg 01/12/24 09:00 01/13/24 08:48 Bupropion Xl 150 Mg Tabcr PO 02/11/24 08:59 150 mg DAILY MARILOU Administration Docusate Sodium 100 mg 01/11/24 21:00 01/12/24 20:32 Docusate Sodium 100 Mg Cap PO 02/10/24 20:59 100 mg HS MARILOU Administration Enoxaparin Sodium 40 mg 01/11/24 21:00 01/12/24 20:32 Enoxaparin Inj 40 Mg/0.4 Ml Syr SQ 02/10/24 20:59 Not Given Q24H MARILOU Lorazepam 0.25 mg 01/12/24 20:29 01/12/24 20:46 Lorazepam 0.5 Mg Tab PO 02/11/24 20:28 0.25 mg HS PRN Administration insomnia Losartan Potassium 100 mg 01/12/24 09:00 01/13/24 08:48 Losartan Potassium 50 Mg Tab PO 02/11/24 08:59 100 mg QAM MARILOU Administration Ondansetron HCl 4 mg 01/11/24 20:08 01/13/24 08:52 Ondansetron Inj 2 Mg/Ml 2 Ml Vial IV 02/10/24 20:07 4 mg Q6H PRN Administration Nausea Oxycodone HCl 5 mg 01/12/24 20:55 01/13/24 01:42 Oxycodone Hcl Ir 5 Mg Tab (Immediate Release) PO 01/26/24 20:54 5 mg Q4H PRN Administration Pain Pantoprazole Sodium 40 mg 01/11/24 21:00 01/12/24 20:32 Pantoprazole 40 Mg Tab PO 02/10/24 20:59 40 mg HS MARILOU Administration Potassium Chloride 10 meq 01/11/24 21:00 01/13/24 08:48 Potassium Chloride 10 Meq Tabcr PO 02/10/24 20:59 10 meq BID MARILOU Administration Sodium Chloride 1 sprays 01/12/24 19:53 01/12/24 20:33 Sodium Chloride 0.65% Na Soln 45 Ml ([place]) NA 02/11/24 19:52 1 sprays PRN PRN Administration Dryness Past Medical History Medical History Chronic pain Anxiety and depression Prediabetes Gastric artery aneurysm Calcified/surgical intervention not recommended, monitored by [facility] vascular Elbow pain R/t elbow tendon (plan for future surgery). will need assistance to move on liter per PAT RN phone interview Hematuria Peptic ulcer disease hx BPH (benign prostatic hyperplasia) Diverticulosis Chronic back pain Osteoarthritis Kidney stones GERD (gastroesophageal reflux disease) Hearing deficit BL BARAJAS Valvular heart disease Mild posterior mitral leaflet prolapse, Mild MR per 2016 stress echo Hypertension Past Family History Family History Grandfather (Paternal) Family hx of colon cancer Grandfather (Maternal) Family hx of colon cancer Brother FHx: bladder cancer Rheumatoid arthritis Other Myocardial infarction No family history of adverse response to anesthesia Stroke Past Surgical History Surgical History History of surgery TIF procedure History of surgery EUS performed 06/03/2020 @ [facility] History of back surgery removal of tip of coccyx d/t a fracture S/P arthroscopy of left shoulder S/P epidural steroid injection History of arthroscopy of right shoulder History of hand surgery LEFT History of umbilical hernia repair History of hemorrhoidectomy History of tonsillectomy History of transurethral resection of prostate History of surgery GREENLIGHT PROCEDURE History of cystoscopy W/ STONE EXTRACTION History of esophagogastroduodenoscopy (EGD) History of colonoscopy W/ POLYPECTOMY History of cardiac cath 2007 - no stents Social History Smoking Status: Former smoker tobacco type: cigarettes Do You Dip or Chew Tobacco: No Hx Alcohol Use: Yes Alcohol type: beer, wine and hard liquor alcohol intake frequency: holidays/special occasions only Hx Substance Use: No substance use type: does not use Physical Exam Vital Signs Last Vital Signs Temp 36.7 C 01/13/24 11:11 Pulse 71 01/13/24 11:11 Resp 16 01/13/24 11:11 BP 124/73 01/13/24 11:11 Pulse Ox 98 01/13/24 11:11 O2 Del Method Room Air 01/13/24 11:11 Testing Laboratory Results 01/13/24 06:49 01/13/24 06:49 PT 10.8 Seconds (9.0-12.0) 01/11/24 14:01 INR 1.0 (0.9-1.1) 01/11/24 14:01 APTT 23 Seconds (21-31) 01/11/24 14:01 Hemoglobin A1c 6.2 % (4.5-5.6) H 01/12/24 06:20 Urine Color Yellow 01/12/24 22:05 Urine Appearance Clear (Clear) 01/12/24 22:05 Urine pH 6.5 (4.5-7.5) 01/12/24 22:05 Ur Specific [place] 1.013 (1.000-1.030) 01/12/24 22:05 Urine Protein Negative (Negative) 01/12/24 22:05 Urine Glucose (UA) Negative (Negative) 01/12/24 22:05 Urine Ketones Negative (Negative) 01/12/24 22:05 Urine Nitrite Negative (Negative) 01/12/24 22:05 Ur Leukocyte Esterase Negative (Negative) 01/12/24 22:05 Blood Type AB Positive 01/11/24 14:19 Antibody Screen NEGATIVE 01/11/24 14:19 Electrocardiogram Date: 01/12/24 Findings: + NSR @ (80) Echocardiogram Date: 01/12/24 EF: 60-65% LV Function: normal Valvular Disease: + AI (mild) mitral valve echodensity
[2024-01-13] MEDS ORDERED: PROPOFOL IV EMULSION 10 MG/ML 20 ML VIAL IV ONE (14:17)
--- NOTE | 2024-01-13 14:21 | Communication Note ---
Date of Service: January 13, 2024 Patient referred and underwent transesophageal echocardiogram uneventfully. Full report to follow Study demonstrated normal left ventricular function and chamber sizes There is focal prolapse of the posterior mitral valve leaflet without mass or vegetation. There is mild to moderate mitral insufficiency. There is no evidence of pulmonary hypertension
[2024-01-13] MEDS: BENZOCAINE/TETRACAIN/BUTAM 50 APPLN/5 GM CAN EXT ONE (14:40)
--- NOTE | 2024-01-13 14:55 | Anesthesiology Progress Note ---
Date of Service January 13, 2024 Anesthesia Post Procedure Vital Signs Vital Signs: Temp Pulse Pulse Pulse Resp BP BP 01/13/24 14:15 79 16 101/52 L 01/13/24 11:11 98.1 F 71 16 124/73 01/13/24 07:47 74 01/13/24 07:30 98.1 F 69 17 129/73 01/13/24 04:10 97.9 F 78 18 128/72 01/12/24 22:37 97.9 F 71 18 118/67 01/12/24 22:00 66 01/12/24 20:04 83 01/12/24 19:06 98.1 F 70 18 124/75 01/12/24 16:36 97.9 F 68 18 135/76 Pulse Ox O2 Del Method 01/13/24 14:15 92 Room Air 01/13/24 11:11 98 Room Air 01/13/24 07:47 01/13/24 07:30 96 Room Air 01/13/24 04:10 94 Room Air 01/12/24 22:37 96 Room Air 01/12/24 22:00 01/12/24 20:04 01/12/24 19:06 97 Room Air 01/12/24 16:36 97 Room Air Pain Intensity Lower Back: Pain Intensity: 5 Transfer of Care Handoff Completed per policy Notes Mental Status: alert / awake / arousable and participated in evaluation Patient Amnestic to Procedure: Yes Nausea / Vomiting: adequately controlled Pain: adequately controlled Airway Patency, RR, SpO2: stable & adequate BP & HR: stable & adequate Hydration State: stable & adequate Anesthetic Complications: no major complications apparent and Pt Satisfied with anesthetic care
--- NOTE | 2024-01-13 15:58 | Discharge Summary ---
Discharge Summary Date of Service January 13, 2024 Notes For Next Care Provider Acute CVA was ruled out Please consider further outpatient workup with Neurology evaluation if symptoms return or persist. Medication Changes From Visit Chlorthalidone decreased with low blood pressure readings Admission HPI Per Admitting Provider Patient is 73 year old male with PMH HTN, prediabetes, GERD, anxiety, depression, chronic insomnia, chronic back pain presented to ER with complaint of dizziness. History obtained from patient and outpatient chart review. Patient states one month ago shopping when had episode diplopia lasted few seconds then later followed by dizziness described as room spinning that lasted few minutes and nausea without vomiting. No further symptoms until today. States today got out of bed walked to bathroom and had fleeting episode of diplopia followed by couple minutes of dizziness and nausea that lasted hour or so. No vomiting. Denies any recurrent dizziness or vision changes since being at ER. States has been having some nasal congestion with allergies and taking loratadine and nasal spray. He reports chronic right ear hearing loss and chronic tinnitus. Denies any worsening hearing loss or worsening tinnitus. Patient states 30 years ago episode of dizziness that thought may be vertigo but never had further problems. Denies head injury or trauma. Denies fever/chills, diaphoresis, N/V/D/C, BARAJAS, syncope, vision loss, neck pain, CP, SOB, orthopnea, palpitations, cough, sore throat, otalgia, rhinorrhea, abdominal pain, paresthesias, weakness, extremity weakness, extremity edema, rashes, urinary symptoms. Admission Exam Per Admitting Provider General: no distress, WDWN Head: normocephalic, atraumatic Eyes: PERRL, EOM's intact, conjunctiva non-injected, anicteric ENT: normal inspection external ears, nose, TMs gaspar and non-bulging with some air fluid bubbles noted, mucous membranes moist Neck: supple, trachea midline Lungs: clear, no respiratory distress, no wheezing/rhonchi/rales CV: RRR, no JVD, no pretibial edema Abd: normal BS, soft, non-tender Ext: no cyanosis, no calf tenderness Neuro: A&O x 3, normal affect. Visual rutledge intact. PERRL, EOMs intact. No nystagmus, facial sensation is intact and symmetric, face is strong and symmetr ic, hearing grossly intact, Soft palate elevates symmetrically, no dysarthria, shoulder shrug intact, Tongue is midline, normal movement, no fasciculations. Strength 5/5 bilateral upper and lower extremities. Ambulating throughout exam room without difficulty and has steady gait. Skin: warm, dry Principal Dx & Hospital Course #1 = Principal Diagnosis (1) Chronic pain: (2) Anxiety and depression: (3) Prediabetes: (4) Hypertension: (5) Diplopia: (6) Dizziness: Plan Patient is 73 year old male with PMHx significant for HTN, prediabetes, GERD, anxiety, depression, chronic insomnia, chronic back pain who presented to the ER with complaint of a brief episode of diplopia followed by vertigo type dizziness and nausea that lasted several minutes on the day of admission. Has a Hx of chronic tinnitus without worsening on arrival. Vertigo Diplopia Strokelike Symptoms In ER vitals stable. No significant electrolyte abnormality. Negative troponin CT head: There is no hemorrhage, mass effect, or evidence of acute territorial ischemia by CT criteria. CTA head and neck:. Unremarkable CT angiogram of the brain. Unremarkable CT angiogram of the neck. Throughout entire ER course patient without any recurrent dizziness episodes. Patient ambulating throughout exam room without any dizziness or noted gait abnormalities. Denies recurrent visual disturbance. Orthostatic vitals noted slight drop in blood pressure on standing EKG with NSR TSH wnl, Lipid panel with elevated triglycerides and VLDL cholesterol, hgba1c of 6.2, indicating prediabetes MRI brain with no noted acute stroke Echo with noted right ventricle dilation and echodensity on posterior mitral va lve. Subsequent YAN noted no vegetation. UA unremarkable lyme testing negative PT/OT consult-pt has been pacing room and ambulating hallway with no issues Home chlorthalidone has been held to help with blood pressure, consider decreasing doses of the other antihypertensives as needed Stable, no further episodes at this time Consider Neurology consult after discharge if symptoms persistent or return Close PCP followup and BP monitoring after discharge. Mitral valve Prolapse Possible echodensity on posterior mitral valve Echo noting hypodensity on posterior mitral valve as noted above Recommended possible YAN for further evaluation Cardiology was consulted, appreciate recs -YAN on 01/12 preliminarily noted the following: "Study demonstrated normal left ventricular function and chamber sizes. There is focal prolapse of the posterior mitral valve leaflet without mass or vegetation. There is mild to moderate mitral insufficiency. There is no evidence of pulmonary hypertension." PCP followup Thrombocytopenia Noted acute drop in platelets today to 119 from normal Continue to monitor Consider peripheral smear if persistent Hyperlipidemia Started on atorvastatin Prediabetes Glucose levels elevated Hgba1 of 6.2, indicating prediabetes Diet and exercise for further management encouraged PCP followup Hypertension Blood pressure has been on lower end Home chlorthalidone held and discontinued on discharge Continue losartan, atenolol at this time PCP followup for continued BP monitoring GERD (gastroesophageal reflux disease) Continue PPI Anxiety and depression Continue bupropion Chronic Back pain Continue baclofen, tramadol as needed Per pt's GI provider, avoid NSAIDs in setting of severe GERD IV tylenol as needed + K pad Consider PT/OT Discharge Exam General: Alert, oriented. No acute distress Skin: No noted rashes or bruises Psych: Appropriate mood and affect Neuro: No gross deficits HEENT: NC/AT Chest: Nontender to palpation. CV: RRR, + murmur Resp: Breath sounds clear bilaterally, no increased effort of breathing. Abdomen: Soft, nontender, nondistended. Extremities: No edema in lower extremities bilaterally. Updated Medication List Medication Instructions Recorded Confirmed Type amoxicillin 500 mg tablet 500 mg PO DAILY PRN BEFORE DENTAL 10/31/18 01/11/24 History PROCEDURES garlic 1,000 mg capsule 1 cap PO QAM 10/31/18 01/11/24 History losartan 100 mg tablet 100 mg PO QAM 10/31/18 01/11/24 History meloxicam 15 mg tablet 0 mg PO DAILY PRN Pain 10/31/18 01/11/24 History Lactobacillus 40-Bifidobact 1 cap PO QAM 10/05/19 01/11/24 History 3-S.thermophilus 100 billion cell capsule (Probiotic) atenolol 50 mg tablet 50 mg PO QAM 08/18/21 01/11/24 History lifitegrast 5 % eye drops in a 1 drp ophthalmic (eye) BID 05/22/22 01/11/24 History dropperette (Xiidra) loratadine 10 mg tablet (Claritin) 10 mg PO DAILY 05/28/23 01/11/24 History Al hyd-Mg tr-alg ac-sod bicarb 80 1 tab PO BID PRN Heartburn 10/21/23 01/11/24 History mg-14.2 mg chewable tablet (Gaviscon) azelastine 137 mcg (0.1 %) nasal 1 spray intranasal BID PRN Allergy 10/21/23 01/11/24 History spray aerosol Symptoms calcium polycarbophil 625 mg 625 mg PO DAILY 10/21/23 01/11/24 History tablet (FiberCon) chlorthalidone 25 mg tablet 12.5 mg PO DAILY 10/21/23 01/11/24 History cholecalciferol (vitamin D3) 50 50 mcg PO QAM 10/21/23 01/11/24 History mcg (2,000 unit) capsule (Vitamin D3) fluticasone propionate 50 1 spray intranasal DAILY PRN 10/21/23 01/11/24 History mcg/actuation nasal Allergy Symptoms spray,suspension (Flonase Allergy Relief) methylsulfonylmethane 1,000 mg 1,000 mg PO DAILY 10/21/23 01/11/24 History capsule (MSM) sennosides 25 mg tablet (Laxative 25 mg PO DAILY 10/21/23 01/11/24 History (sennosides)) cyanocobalamin (vitamin B-12) 500 500 mcg PO DAILY 12/04/23 01/11/24 History mcg tablet (Vitamin B-12) diclofenac sodium 1 % topical gel 2 g topical QID 12/04/23 01/11/24 History multivitamin 1 tab PO DAILY 12/04/23 01/11/24 History potassium chloride 10 mEq 10 meq PO BID 12/04/23 01/11/24 History tablet,extended release(part/cryst) tramadol 50 mg tablet 50 mg PO Q8H PRN Pain 12/04/23 01/11/24 History baclofen 10 mg tablet 5 mg PO HS 01/11/24 01/11/24 History bupropion HCl 150 mg 24 hr tablet, 150 mg PO DAILY 01/11/24 01/11/24 History extended release carboxymethylcellulose sodium 1 % 2 drp ophthalmic (eye) BID PRN Dry 01/11/24 01/11/24 History eye liquid gel drops Eye(S) dexlansoprazole 60 mg 60 mg PO HS 01/11/24 01/11/24 History capsule,biphase delayed release (Dexilant) docusate sodium 100 mg capsule 200 mg PO HS 01/11/24 01/11/24 History (Colace) hydroxyzine HCl 25 mg tablet 25 mg PO Q6H PRN Anxiety 01/11/24 01/11/24 History Hospital Stay Data Consultations 01/11/24 16:19 ED Decision to Admit Stat 01/12/24 15:02 Consult Cardiology Routine 01/13/24 11:21 Consult Anesthesiology Routine Procedures Performed Operation Date: 01/13/24 13:00 Actual Procedures s Echo Transesophageal - Rakan Tuttle MD s Echo Color Flow - Rakan Tuttle MD p Echo Doppler Complete - Rakan Tuttle MD Diagnostic Imagining Performed 01/11/24 14:10 CT angio head w con Stat CT angio neck with con Stat CT head/brain wo con Stat 01/12/24 07:53 MRI Brain [MR brain wo/w con] Urgent Head CT 01/11/24 14:[address] OF THE BRAIN; CT ANGIOGRAM OF THE BRAIN; CT ANGIOGRAM OF THE NECK CLINICAL HISTORY: Neurological deficit. Stroke like symptoms. Dizziness. COMPARISON STUDY: CT of the brain dated 08/10/2008. TECHNIQUE: Unenhanced axial CT scan of the brain is performed. Subsequently, following the IV administration of 119 of Optiray 320, CT angiogram of the head and neck was performed from the aortic arch to the vertex. Images are reviewed in the axial, sagittal, and coronal planes. 3-D MIPS images are created and assessed. IV contrast was administered without complication. All measurements were calculated based on NASCET criteria. A dose lowering technique was utilized adhering to the principles of ALARA. CT DOSE: 1111. mGy.cm FINDINGS: Brain parenchyma: There is age-related involutional change noted minimal microangiopathic disease. Mineralization is noted in the basal ganglia. There is no hemorrhage, mass effect, or evidence of acute territorial ischemia by CT criteria. There is no evidence of enhancing mass lesion on the angiogram phase images. The ventricles, sulci, and cisterns are prominent secondary to involutional change. Gaspar-white matter differentiation is preserved. No extra- axial fluid collection is seen. Thoracic aorta: Visualized portions of the thoracic aorta are normal in caliber. The aortic arch demonstrates standard 3-vessel anatomy. Right carotid arterial system: The right common carotid artery is widely patent, as are the right internal and external carotid arteries. Left carotid arterial system: The left common carotid artery is widely patent, as are the left internal and external carotid arteries. There is mild calcified plaque in the carotid bulb. Vertebral arteries: Widely patent bilaterally and codominant. Subclavian arteries: Widely patent bilaterally. Intracranial vasculature: There is atherosclerotic calcification of the cavernous carotid arteries. The internal carotid arteries are patent at the skull base, as are the anterior and middle cerebral arteries bilaterally. The vertebrobasilar system and posterior cerebral arteries are widely patent. The vertebral arteries are codominant. There is no aneurysm, high-grade stenosis, or focal vessel cut off seen throughout the intracranial circulation. Jugular veins: Patent bilaterally. Dural sinuses: Patent. Lung apices: There is mild emphysematous change. The imaged upper lobe lung parenchyma is otherwise clear. Soft tissues: The visualized pharyngeal soft tissues are normal in appearance noting angiographic phase technique. The oropharyngeal airway appears widely patent. The thyroid gland is mildly enlarged and heterogeneous. The salivary glands are normal in appearance. No cervical lymphadenopathy is seen. Skeletal structures: The skeletal structures are osteopenic. The calvarium appears intact. The cervical spine is maintained noting multilevel spondylosis. Orbits: The bony orbits are intact. Orbital contents are normal as visualized. Sinuses and mastoids: The paranasal sinuses are clear. The mastoid air cells are well pneumatized. IMPRESSION: 1. There is no hemorrhage, mass effect, or evidence of acute territorial ischemia by CT criteria. 2. Unremarkable CT angiogram of the brain. 3. Unremarkable CT angiogram of the neck. 4. Emphysema. ACT 112: Negative or not required by law. Electronically signed by: Pete Ivan M.D. 01/11/2024 3:24 PM Head CTA 01/11/24 14:[address] OF THE BRAIN; CT ANGIOGRAM OF THE BRAIN; CT ANGIOGRAM OF THE NECK CLINICAL HISTORY: Neurological deficit. Stroke like symptoms. Dizziness. COMPARISON STUDY: CT of the brain dated 08/10/2008. TECHNIQUE: Unenhanced axial CT scan of the brain is performed. Subsequently, following the IV administration of 119 of Optiray 320, CT angiogram of the head and neck was performed from the aortic arch to the vertex. Images are reviewed in the axial, sagittal, and coronal planes. 3-D MIPS images are created and assessed. IV contrast was administered without complication. All measurements were calculated based on NASCET criteria. A dose lowering technique was utilized adhering to the principles of ALARA. CT DOSE: 1111. mGy.cm FINDINGS: Brain parenchyma: There is age-related involutional change noted minimal microangiopathic disease. Mineralization is noted in the basal ganglia. There is no hemorrhage, mass effect, or evidence of acute territorial ischemia by CT criteria. There is no evidence of enhancing mass lesion on the angiogram phase images. The ventricles, sulci, and cisterns are prominent secondary to involutional change. Gaspar-white matter differentiation is preserved. No extra- axial fluid collection is seen. Thoracic aorta: Visualized portions of the thoracic aorta are normal in caliber. The aortic arch demonstrates standard 3-vessel anatomy. Right carotid arterial system: The right common carotid artery is widely patent, as are the right internal and external carotid arteries. Left carotid arterial system: The left common carotid artery is widely patent, as are the left internal and external carotid arteries. There is mild calcified plaque in the carotid bulb. Vertebral arteries: Widely patent bilaterally and codominant. Subclavian arteries: Widely patent bilaterally. Intracranial vasculature: There is atherosclerotic calcification of the cavernous carotid arteries. The internal carotid arteries are patent at the skull base, as are the anterior and middle cerebral arteries bilaterally. The vertebrobasilar system and posterior cerebral arteries are widely patent. The vertebral arteries are codominant. There is no aneurysm, high-grade stenosis, or focal vessel cut off seen throughout the intracranial circulation. Jugular veins: Patent bilaterally. Dural sinuses: Patent. Lung apices: There is mild emphysematous change. The imaged upper lobe lung parenchyma is otherwise clear. Soft tissues: The visualized pharyngeal soft tissues are normal in appearance noting angiographic phase technique. The oropharyngeal airway appears widely patent. The thyroid gland is mildly enlarged and heterogeneous. The salivary glands are normal in appearance. No cervical lymphadenopathy is seen. Skeletal structures: The skeletal structures are osteopenic. The calvarium appears intact. The cervical spine is maintained noting multilevel spondylosis. Orbits: The bony orbits are intact. Orbital contents are normal as visualized. Sinuses and mastoids: The paranasal sinuses are clear. The mastoid air cells are well pneumatized. IMPRESSION: 1. There is no hemorrhage, mass effect, or evidence of acute territorial ischemia by CT criteria. 2. Unremarkable CT angiogram of the brain. 3. Unremarkable CT angiogram of the neck. 4. Emphysema. ACT 112: Negative or not required by law. Electronically signed by: Pete Ivan M.D. 01/11/2024 3:24 PM Neck CTA 01/11/24 14:[address] OF THE BRAIN; CT ANGIOGRAM OF THE BRAIN; CT ANGIOGRAM OF THE NECK CLINICAL HISTORY: Neurological deficit. Stroke like symptoms. Dizziness. COMPARISON STUDY: CT of the brain dated 08/10/2008. TECHNIQUE: Unenhanced axial CT scan of the brain is performed. Subsequently, following the IV administration of 119 of Optiray 320, CT angiogram of the head and neck was performed from the aortic arch to the vertex. Images are reviewed in the axial, sagittal, and coronal planes. 3-D MIPS images are created and assessed. IV contrast was administered without complication. All measurements were calculated based on NASCET criteria. A dose lowering technique was utilized adhering to the principles of ALARA. CT DOSE: 1111. mGy.cm FINDINGS: Brain parenchyma: There is age-related involutional change noted minimal microangiopathic disease. Mineralization is noted in the basal ganglia. There is no hemorrhage, mass effect, or evidence of acute territorial ischemia by CT criteria. There is no evidence of enhancing mass lesion on the angiogram phase images. The ventricles, sulci, and cisterns are prominent secondary to involutional change. Gaspar-white matter differentiation is preserved. No extra- axial fluid collection is seen. Thoracic aorta: Visualized portions of the thoracic aorta are normal in caliber. The aortic arch demonstrates standard 3-vessel anatomy. Right carotid arterial system: The right common carotid artery is widely patent, as are the right internal and external carotid arteries. Left carotid arterial system: The left common carotid artery is widely patent, as are the left internal and external carotid arteries. There is mild calcified plaque in the carotid bulb. Vertebral arteries: Widely patent bilaterally and codominant. Subclavian arteries: Widely patent bilaterally. Intracranial vasculature: There is atherosclerotic calcification of the cavernous carotid arteries. The internal carotid arteries are patent at the skull base, as are the anterior and middle cerebral arteries bilaterally. The vertebrobasilar system and posterior cerebral arteries are widely patent. The vertebral arteries are codominant. There is no aneurysm, high-grade stenosis, or focal vessel cut off seen throughout the intracranial circulation. Jugular veins: Patent bilaterally. Dural sinuses: Patent. Lung apices: There is mild emphysematous change. The imaged upper lobe lung p arenchyma is otherwise clear. Soft tissues: The visualized pharyngeal soft tissues are normal in appearance noting angiographic phase technique. The oropharyngeal airway appears widely patent. The thyroid gland is mildly enlarged and heterogeneous. The salivary glands are normal in appearance. No cervical lymphadenopathy is seen. Skeletal structures: The skeletal structures are osteopenic. The calvarium appears intact. The cervical spine is maintained noting multilevel spondylosis. Orbits: The bony orbits are intact. Orbital contents are normal as visualized. Sinuses and mastoids: The paranasal sinuses are clear. The mastoid air cells are well pneumatized. IMPRESSION: 1. There is no hemorrhage, mass effect, or evidence of acute territorial ischemia by CT criteria. 2. Unremarkable CT angiogram of the brain. 3. Unremarkable CT angiogram of the neck. 4. Emphysema. ACT 112: Negative or not required by law. Electronically signed by: Pete Ivan M.D. 01/11/2024 3:24 PM Brain MRI 01/12/24 07:53 Brain MRI WITH AND WITHOUT CONTRAST HISTORY: diplopia, vertigo, r/o stroke TECHNIQUE: Multiplanar multisequence MRI of the brain was performed both before and after the intravenous administration of contrast. COMPARISON STUDY: Head CT 01/11/2024. FINDINGS: There are no areas of restricted diffusion to suggest acute infarction . The midline structures are intact. The paranasal sinuses are clear. The mastoid air cells are clear. The ventricles and sulci are within normal limits for age. There is no mass, hematoma, midline shift. The major vascular flow- voids at the skull base are well maintained. Postcontrast sequences show no areas of abnormal enhancement. IMPRESSION: No acute intracranial abnormality. ACT 112: Negative or not required by law. Electronically signed by: Gideon Lockhart M.D. 01/12/2024 10:54 AM Pending Results Patient Have Any Pending Studies at Discharge: No Discharge Instructions Given to Patient (Per Discharging Provider) Mr. Linder, You were admitted with vertigo and vision changes and an acute stroke was ruled out on head CT imaging as well as a brain MRI. Your symptoms could be related to your blood pressure which has been on the lower side. Per previous discussion, we are discontinuing your home chlorthalidone. We recommend that you continue with the losartan and atenolol medications that you are on. There was some concern that you had a lesion on one of the valves of the heart. You had a procedure done called a YAN which did not show that. Please keep close follow up with your primary care provider after discharge. Please do not hesitate to come back to the emergency room if your symptoms worsen or return. It was a pleasure taking care of you while you were here. Total Time Total Time Spent Total Time Spent (In Minutes): 75
[2024-01-13] MEDS ORDERED: STROKE PATIENT DISCHARGE STA (16:18)
--- NOTE | 2024-01-13 16:47 | Hospitalist Progress Note ---
Date of Service January 13, 2024 Assessment & Plan (1) Chronic pain: (2) Anxiety and depression: (3) Prediabetes: (4) Hypertension: (5) Diplopia: (6) Dizziness: Plan Patient is 73 year old male with PMHx significant for HTN, prediabetes, GERD, anxiety, depression, chronic insomnia, chronic back pain who presented to the ER with complaint of a brief episode of diplopia followed by vertigo type dizziness and nausea that lasted several minutes on the day of admission. Has a Hx of chronic tinnitus without worsening on arrival. Vertigo Diplopia Strokelike Symptoms In ER vitals stable. No significant electrolyte abnormality. Negative troponin CT head: There is no hemorrhage, mass effect, or evidence of acute territorial ischemia by CT criteria. CTA head and neck:. Unremarkable CT angiogram of the brain. Unremarkable CT angiogram of the neck. Throughout entire ER course patient without any recurrent dizziness episodes. Patient ambulating throughout exam room without any dizziness or noted gait abnormalities. Denies recurrent visual disturbance. Orthostatic vitals noted slight drop in blood pressure on standing EKG with NSR TSH wnl, Lipid panel with elevated triglycerides and VLDL cholesterol, hgba1c of 6.2, indicating prediabetes MRI brain with no noted acute stroke Echo with noted right ventricle dilation and echodensity on posterior mitral valve. Subsequent YAN noted no vegetation. UA unremarkable lyme testing negative PT/OT consult-pt has been pacing room and ambulating hallway with no issues Home chlorthalidone has been held to help with blood pressure, consider decreasing doses of the other antihypertensives as needed Stable, no further episodes at this time Consider Neurology consult after discharge if symptoms persistent or return Close PCP followup and BP monitoring after discharge. Mitral valve Prolapse Possible echodensity on posterior mitral valve Echo noting hypodensity on posterior mitral valve as noted above Recommended possible YAN for further evaluation Cardiology was consulted, appreciate recs -YAN on 01/12 preliminarily noted the following: "Study demonstrated normal left ventricular function and chamber sizes. There is focal prolapse of the posterior mitral valve leaflet without mass or vegetation. There is mild to moderate mitral insufficiency. There is no evidence of pulmonary hypertension." PCP followup Thrombocytopenia Noted acute drop in platelets today to 119 from normal Continue to monitor Consider peripheral smear if persistent Hyperlipidemia Started on atorvastatin Prediabetes Glucose levels elevated Hgba1 of 6.2, indicating prediabetes Diet and exercise for further management encouraged PCP followup Hypertension Blood pressure has been on lower end Home chlorthalidone held and discontinued on discharge Continue losartan, atenolol at this time PCP followup for continued BP monitoring GERD (gastroesophageal reflux disease) Continue PPI Anxiety and depression Continue bupropion Chronic Back pain Continue baclofen, tramadol as needed Per pt's GI provider, avoid NSAIDs in setting of severe GERD IV tylenol as needed + K pad Consider PT/OT Admission and Anticipated Discharge Date Admission Date: January 11, 2024 Subjective pt was seen multiple times during the day. Denies acute concerns, no recurrence of symptoms. Cannot leave today as he drove himself here. Review of Systems Review of Systems: All systems reviewed & are unremarkable except as noted in Subjective Physical Exam Physical Exam: General: Alert, oriented. No acute distress Skin: No noted rashes or bruises Psych: Appropriate mood and affect Neuro: No gross deficits HEENT: NC/AT Chest: Nontender to palpation. CV: RRR, + murmur Resp: Breath sounds clear bilaterally, no increased effort of breathing. Abdomen: Soft, nontender, nondistended. Extremities: No edema in lower extremities bilaterally. Results & Data Results & Data Vital Signs (Past 12 Hours) Vital Signs Temp Pulse Pulse Pulse Resp BP BP 01/13/24 15:34 36.8 C 75 16 116/68 01/13/24 14:47 36.7 C 72 18 124/71 01/13/24 14:30 75 16 117/74 01/13/24 14:15 79 16 101/52 L 01/13/24 11:11 36.7 C 71 16 124/73 01/13/24 07:47 74 01/13/24 07:30 36.7 C 69 17 129/73 Pulse Ox O2 Del Method 01/13/24 15:34 96 Room Air 01/13/24 14:47 93 Room Air 01/13/24 14:30 95 Room Air 01/13/24 14:15 92 Room Air 01/13/24 11:11 98 Room Air 01/13/24 07:47 01/13/24 07:30 96 Room Air
[2024-01-14 07:15] LABS: Hematocrit (blood only) 43.1 % (42.0-52.0); Hemoglobin 14.7 g/dl (14.0-18.0); Mean Corpuscular Hemoglobin 29.8 pg (25.0-34.0); Mean Corpuscular Hgb Conc 34.1 g/dL (32.0-36.0); Mean Corpuscular Volume 87.2 fL (80.0-100.0); Mean Platelet Volume 11.4 fL (9.4-12.4); Platelet Count 117 K/uL (130-400); RDW Coefficient of Variation 12.4 % (11.5-14.5); RDW Standard Deviation 39.4 fL (36.4-46.3); Red Blood Count 4.94 M/uL (4.70-6.10); White Blood Count 6.17 K/ul (4.8-10.8)
[2024-01-14 07:37] LABS: BUN Creatinine Ratio 17.1 (10-20); Calcium 8.3 mg/dl (8.6-10.3); Creatinine Clr Calc Pharmacy 66.7 ml/min; Est GFR (African American) 81.2 ml/min; Est GFR (Non-African American) 70.1 ml/min; Magnesium 1.8 mg/dl (1.7-2.4); Phosphorus 3.7 mg/dl (2.5-4.9); Potassium 3.8 mmol/L (3.5-5.1)
--- NOTE | 2024-01-14 11:00 | Discharge Summary ---
Discharge Summary Date of Service January 14, 2024 Notes For Next Care Provider Acute CVA was ruled out Pt with noted moderate to severe mitral valve prolapse noted on TTE as well as subsequent YAN Per Cardiology- needs Zio patch for 2 weeks after discharge for further monitoring Cardiology followup in approximately 2 months Please continue to monitor blood pressure after discharge and adjust antihypertensives as needed. Symptoms had resolved and not recurred on discharge. Medication Changes From Visit Chlorthalidone discontinued due to lower blood pressure readings Continue atenolol and losartan at home doses Admission HPI Per Admitting Provider Patient is 73 year old male with PMH HTN, prediabetes, GERD, anxiety, depression, chronic insomnia, chronic back pain presented to ER with complaint of dizziness. History obtained from patient and outpatient chart review. Patient states one month ago shopping when had episode diplopia lasted few seconds then later followed by dizziness described as room spinning that lasted few minutes and nausea without vomiting. No further symptoms until today. States today got out of bed walked to bathroom and had fleeting episode of diplopia followed by couple minutes of dizziness and nausea that lasted hour or so. No vomiting. Denies any recurrent dizziness or vision changes since being at ER. States has been having some nasal congestion with allergies and taking loratadine and nasal spray. He reports chronic right ear hearing loss and chronic tinnitus. Denies any worsening hearing loss or worsening tinnitus. Patient states 30 years ago episode of dizziness that thought may be vertigo but never had further problems. Denies head injury or trauma. Denies fever/chills, diaphoresis, N/V/D/C, BARAJAS, sy ncope, vision loss, neck pain, CP, SOB, orthopnea, palpitations, cough, sore throat, otalgia, rhinorrhea, abdominal pain, paresthesias, weakness, extremity weakness, extremity edema, rashes, urinary symptoms. Admission Exam Per Admitting Provider General: no distress, WDWN Head: normocephalic, atraumatic Eyes: PERRL, EOM's intact, conjunctiva non-injected, anicteric ENT: normal inspection external ears, nose, TMs gaspar and non-bulging with some air fluid bubbles noted, mucous membranes moist Neck: supple, trachea midline Lungs: clear, no respiratory distress, no wheezing/rhonchi/rales CV: RRR, no JVD, no pretibial edema Abd: normal BS, soft, non-tender Ext: no cyanosis, no calf tenderness Neuro: A&O x 3, normal affect. Visual rutledge intact. PERRL, EOMs intact. No nystagmus, facial sensation is intact and symmetric, face is strong and symmetric, hearing grossly intact, Soft palate elevates symmetrically, no dysa rthria, shoulder shrug intact, Tongue is midline, normal movement, no fasciculations. Strength 5/5 bilateral upper and lower extremities. Ambulating throughout exam room without difficulty and has steady gait. Skin: warm, dry Principal Dx & Hospital Course #1 = Principal Diagnosis (1) Chronic pain: (2) Anxiety and depression: (3) Prediabetes: (4) Hypertension: (5) Diplopia: (6) Dizziness: Plan Patient is 73 year old male with PMHx significant for HTN, prediabetes, GERD, anxiety, depression, chronic insomnia, chronic back pain who presented to the ER with complaint of a brief episode of diplopia followed by vertigo type dizziness and nausea that lasted several minutes on the day of admission. Has a Hx of chronic tinnitus without worsening on arrival. Vertigo Diplopia Strokelike Symptoms In ER vitals stable. No significant electrolyte abnormality. Negative troponin CT head: There is no hemorrhage, mass effect, or evidence of acute territorial ischemia by CT criteria. CTA head and neck:. Unremarkable CT angiogram of the brain. Unremarkable CT angiogram of the neck. Throughout entire ER course patient without any recurrent dizziness episodes. Patient ambulating throughout exam room without any dizziness or noted gait abnormalities. Denies recurrent visual disturbance. Orthostatic vitals noted slight drop in blood pressure on standing EKG with NSR TSH wnl, Lipid panel with elevated triglycerides and VLDL cholesterol, hgba1c of 6.2, indicating prediabetes MRI brain with no noted acute stroke Echo with noted right ventricle dilation and echodensity on posterior mitral valve. Subsequent YAN noted no vegetation but did note moderate to severe mitral valve prolapse, trace aortic regurgitation, EF 60-65%. UA unremarkable lyme testing negative PT/OT consult-pt has been pacing room and ambulating hallway with no issues Home chlorthalidone has been discontinued to help with blood pressure, consider decreasing doses of the other antihypertensives as needed Stable, no further episodes of diplopia and vertigo while hospitalized Per Cardiology- needs Zio patch for 2 weeks after discharge for further monitoring Cardiology followup in approximately 2 months Close PCP followup and BP monitoring after discharge. Mitral valve Prolapse Possible echodensity on posterior mitral valve Echo noting hypodensity on posterior mitral valve as noted above Recommended possible YAN for further evaluation Cardiology was consulted, appreciate recs -YAN on 01/12 noted EF 60-65%, moderate to severe mitral valve prolapse without vegetation or mass, trace aortic regurgitation, and mild tricuspid regurgitation. -needs Zio patch for 2 weeks after discharge for further monitoring Cardiology followup in approximately 2 months PCP followup Thrombocytopenia Noted acute drop in platelets 117 from normal Continue to monitor Consider peripheral smear if persistent Hyperlipidemia Started on atorvastatin Prediabetes Glucose levels elevated Hgba1 of 6.2, indicating prediabetes Diet and exercise for further management encouraged PCP followup Hypertension Blood pressure has been on lower end Home chlorthalidone held and discontinued on discharge Continue losartan, atenolol at this time PCP followup for continued BP monitoring GERD (gastroesophageal reflux disease) Continue PPI Anxiety and depression Continue bupropion Chronic Back pain Continue baclofen, tramadol as needed Per pt's GI provider, avoid NSAIDs in setting of severe GERD IV tylenol as needed + K pad Consider PT/OT Discharge Exam General: Alert, oriented. No acute distress Skin: No noted rashes or bruises Psych: Appropriate mood and affect Neuro: No gross deficits HEENT: NC/AT Chest: Nontender to palpation. CV: RRR, + murmur Resp: Breath sounds clear bilaterally, no increased effort of breathing. Abdomen: Soft, nontender, nondistended. Extremities: No edema in lower extremities bilaterally. Updated Medication List Medication Instructions Recorded Confirmed Type amoxicillin 500 mg tablet 500 mg PO DAILY PRN BEFORE DENTAL 10/31/18 01/11/24 History PROCEDURES garlic 1,000 mg capsule 1 cap PO QAM 10/31/18 01/11/24 History losartan 100 mg tablet 100 mg PO QAM 10/31/18 01/11/24 History meloxicam 15 mg tablet 0 mg PO DAILY PRN Pain 10/31/18 01/11/24 History Lactobacillus 40-Bifidobact 1 cap PO QAM 10/05/19 01/11/24 History 3-S.thermophilus 100 billion cell capsule (Probiotic) atenolol 50 mg tablet 50 mg PO QAM 08/18/21 01/11/24 History lifitegrast 5 % eye drops in a 1 drp ophthalmic (eye) BID 05/22/22 01/11/24 History dropperette (Xiidra) loratadine 10 mg tablet (Claritin) 10 mg PO DAILY 05/28/23 01/11/24 History Al hyd-Mg tr-alg ac-sod bicarb 80 1 tab PO BID PRN Heartburn 10/21/23 01/11/24 H istory mg-14.2 mg chewable tablet (Gaviscon) azelastine 137 mcg (0.1 %) nasal 1 spray intranasal BID PRN Allergy 10/21/23 01/11/24 History spray aerosol Symptoms calcium polycarbophil 625 mg 625 mg PO DAILY 10/21/23 01/11/24 History tablet (FiberCon) chlorthalidone 25 mg tablet 12.5 mg PO DAILY 10/21/23 01/11/24 History cholecalciferol (vitamin D3) 50 50 mcg PO QAM 10/21/23 01/11/24 History mcg (2,000 unit) capsule (Vitamin D3) fluticasone propionate 50 1 spray intranasal DAILY PRN 10/21/23 01/11/24 History mcg/actuation nasal Allergy Symptoms spray,suspension (Flonase Allergy Relief) methylsulfonylmethane 1,000 mg 1,000 mg PO DAILY 10/21/23 01/11/24 History capsule (MSM) sennosides 25 mg tablet (Laxative 25 mg PO DAILY 10/21/23 01/11/24 History (sennosides)) cyanocobalamin (vitamin B-12) 500 500 mcg PO DAILY 12/04/23 01/11/24 History mcg tablet (Vitamin B-12) diclofenac sodium 1 % topical gel 2 g topical QID 12/04/23 01/11/24 History multivitamin 1 tab PO DAILY 12/04/23 01/11/24 History potassium chloride 10 mEq 10 meq PO BID 12/04/23 01/11/24 History tablet,extended release(part/cryst) tramadol 50 mg tablet 50 mg PO Q8H PRN Pain 12/04/23 01/11/24 History baclofen 10 mg tablet 5 mg PO HS 01/11/24 01/11/24 History bupropion HCl 150 mg 24 hr tablet, 150 mg PO DAILY 01/11/24 01/11/24 History extended release carboxymethylcellulose sodium 1 % 2 drp ophthalmic (eye) BID PRN Dry 01/11/24 01/11/24 History eye liquid gel drops Eye(S) dexlansoprazole 60 mg 60 mg PO HS 01/11/24 01/11/24 History capsule,biphase delayed release (Dexilant) docusate sodium 100 mg capsule 200 mg PO HS 01/11/24 01/11/24 History (Colace) hydroxyzine HCl 25 mg tablet 25 mg PO Q6H PRN Anxiety 01/11/24 01/11/24 History Hospital Stay Data Consultations 01/11/24 16:19 ED Decision to Admit Stat 01/12/24 15:02 Consult Cardiology Routine 01/13/24 11:21 Consult Anesthesiology Routine Procedures Performed Operation Date: 01/13/24 13:00 Actual Procedures s Echo Transesophageal - Rakan Tuttle MD s Echo Color Flow - Rakan Tuttle MD p Echo Doppler Complete - Rakan Tuttle MD Diagnostic Imagining Performed 01/11/24 14:10 CT angio head w con Stat CT angio neck with con Stat CT head/brain wo con Stat 01/12/24 07:53 MRI Brain [MR brain wo/w con] Urgent Head CT 01/11/24 14:[address] OF THE BRAIN; CT ANGIOGRAM OF THE BRAIN; CT ANGIOGRAM OF THE NECK CLINICAL HISTORY: Neurological deficit. Stroke like symptoms. Dizziness. COMPARISON STUDY: CT of the brain dated 08/10/2008. TECHNIQUE: Unenhanced axial CT scan of the brain is performed. Subsequently, following the IV administration of 119 of Optiray 320, CT angiogram of the head and neck was performed from the aortic arch to the vertex. Images are reviewed in the axial, sagittal, and coronal planes. 3-D MIPS images are created and assessed. IV contrast was administered without complication. All measurements were calculated based on NASCET criteria. A dose lowering technique was utilized adhering to the principles of ALARA. CT DOSE: 1111. mGy.cm FINDINGS: Brain parenchyma: There is age-related involutional change noted minimal microangiopathic disease. Mineralization is noted in the basal ganglia. There is no hemorrhage, mass effect, or evidence of acute territorial ischemia by CT criteria. There is no evidence of enhancing mass lesion on the angiogram phase images. The ventricles, sulci, and cisterns are prominent secondary to involutional change. Gaspar-white matter differentiation is preserved. No extra- axial fluid collection is seen. Thoracic aorta: Visualized portions of the thoracic aorta are normal in caliber. The aortic arch demonstrates standard 3-vessel anatomy. Right carotid arterial system: The right common carotid artery is widely patent, as are the right internal and external carotid arteries. Left carotid arterial system: The left common carotid artery is widely patent, as are the left internal and external carotid arteries. There is mild calcified plaque in the carotid bulb. Vertebral arteries: Widely patent bilaterally and codominant. Subclavian arteries: Widely patent bilaterally. Intracranial vasculature: There is atherosclerotic calcification of the cavernous carotid arteries. The internal carotid arteries are patent at the skull base, as are the anterior and middle cerebral arteries bilaterally. The vertebrobasilar system and posterior cerebral arteries are widely patent. The vertebral arteries are codominant. There is no aneurysm, high-grade stenosis, or focal vessel cut off seen throughout the intracranial circulation. Jugular veins: Patent bilaterally. Dural sinuses: Patent. Lung apices: There is mild emphysematous change. The imaged upper lobe lung parenchyma is otherwise clear. Soft tissues: The visualized pharyngeal soft tissues are normal in appearance noting angiographic phase technique. The oropharyngeal airway appears widely patent. The thyroid gland is mildly enlarged and heterogeneous. The salivary glands are normal in appearance. No cervical lymphadenopathy is seen. Skeletal structures: The skeletal structures are osteopenic. The calvarium appears intact. The cervical spine is maintained noting multilevel spondylosis. Orbits: The bony orbits are intact. Orbital contents are normal as visualized. Sinuses and mastoids: The paranasal sinuses are clear. The mastoid air cells are well pneumatized. IMPRESSION: 1. There is no hemorrhage, mass effect, or evidence of acute territorial ischemia by CT criteria. 2. Unremarkable CT angiogram of the brain. 3. Unremarkable CT angiogram of the neck. 4. Emphysema. ACT 112: Negative or not required by law. Electronically signed by: Pete Ivan M.D. 01/11/2024 3:24 PM Head CTA 01/11/24 14:[address] OF THE BRAIN; CT ANGIOGRAM OF THE BRAIN; CT ANGIOGRAM OF THE NECK CLINICAL HISTORY: Neurological deficit. Stroke like symptoms. Dizziness. COMPARISON STUDY: CT of the brain dated 08/10/2008. TECHNIQUE: Unenhanced axial CT scan of the brain is performed. Subsequently, following the IV administration of 119 of Optiray 320, CT angiogram of the head and neck was performed from the aortic arch to the vertex. Images are reviewed in the axial, sagittal, and coronal planes. 3-D MIPS images are created and assessed. IV contrast was administered without complication. All measurements were calculated based on NASCET criteria. A dose lowering technique was utilized adhering to the principles of ALARA. CT DOSE: 1111. mGy.cm FINDINGS: Brain parenchyma: There is age-related involutional change noted minimal microangiopathic disease. Mineralization is noted in the basal ganglia. There is no hemorrhage, mass effect, or evidence of acute territorial ischemia by CT criteria. There is no evidence of enhancing mass lesion on the angiogram phase images. The ventricles, sulci, and cisterns are prominent secondary to involutional change. Gaspar-white matter differentiation is preserved. No extra- axial fluid collection is seen. Thoracic aorta: Visualized portions of the thoracic aorta are normal in caliber. The aortic arch demonstrates standard 3-vessel anatomy. Right carotid arterial system: The right common carotid artery is widely patent, as are the right internal and external carotid arteries. Left carotid arterial system: The left common carotid artery is widely patent, as are the left internal and external carotid arteries. There is mild calcified plaque in the carotid bulb. Vertebral arteries: Widely patent bilaterally and codominant. Subclavian arteries: Widely patent bilaterally. Intracranial vasculature: There is atherosclerotic calcification of the cavernous carotid arteries. The internal carotid arteries are patent at the skull base, as are the anterior and middle cerebral arteries bilaterally. The vertebrobasilar system and posterior cerebral arteries are widely patent. The vertebral arteries are codominant. There is no aneurysm, high-grade stenosis, or focal vessel cut off seen throughout the intracranial circulation. Jugular veins: Patent bilaterally. Dural sinuses: Patent. Lung apices: There is mild emphysematous change. The imaged upper lobe lung parenchyma is otherwise clear. Soft tissues: The visualized pharyngeal soft tissues are normal in appearance noting angiographic phase technique. The oropharyngeal airway appears widely patent. The thyroid gland is mildly enlarged and heterogeneous. The salivary glands are normal in appearance. No cervical lymphadenopathy is seen. Skeletal structures: The skeletal structures are osteopenic. The calvarium appears intact. The cervical spine is maintained noting multilevel spondylosis. Orbits: The bony orbits are intact. Orbital contents are normal as visualized. Sinuses and mastoids: The paranasal sinuses are clear. The mastoid air cells are well pneumatized. IMPRESSION: 1. There is no hemorrhage, mass effect, or evidence of acute territorial ischemia by CT criteria. 2. Unremarkable CT angiogram of the brain. 3. Unremarkable CT angiogram of the neck. 4. Emphysema. ACT 112: Negative or not required by law. Electronically signed by: Peet Ivan M.D. 01/11/2024 3:24 PM Neck CTA 01/11/24 14:[address] OF THE BRAIN; CT ANGIOGRAM OF THE BRAIN; CT ANGIOGRAM OF THE NECK CLINICAL HISTORY: Neurological deficit. Stroke like symptoms. Dizziness. COMPARISON STUDY: CT of the brain dated 08/10/2008. TECHNIQUE: Unenhanced axial CT scan of the brain is performed. Subsequently, following the IV administration of 119 of Optiray 320, CT angiogram of the head and neck was performed from the aortic arch to the vertex. Images are reviewed in the axial, sagittal, and coronal planes. 3-D MIPS images are created and assessed. IV contrast was administered without complication. All measurements were calculated based on NASCET criteria. A dose lowering technique was utilized adhering to the principles of ALARA. CT DOSE: 1111. mGy.cm FINDINGS: Brain parenchyma: There is age-related involutional change noted minimal microangiopathic disease. Mineralization is noted in the basal ganglia. There is no hemorrhage, mass effect, or evidence of acute territorial ischemia by CT criteria. There is no evidence of enhancing mass lesion on the angiogram phase images. The ventricles, sulci, and cisterns are prominent secondary to involutional change. Gaspar-white matter differentiation is preserved. No extra- axial fluid collection is seen. Thoracic aorta: Visualized portions of the thoracic aorta are normal in caliber. The aortic arch demonstrates standard 3-vessel anatomy. Right carotid arterial system: The right common carotid artery is widely patent, as are the right internal and external carotid arteries. Left carotid arterial system: The left common carotid artery is widely patent, as are the left internal and external carotid arteries. There is mild calcified plaque in the carotid bulb. Vertebral arteries: Widely patent bilaterally and codominant. Subclavian arteries: Widely patent bilaterally. Intracranial vasculature: There is atherosclerotic calcification of the cavernous carotid arteries. The internal carotid arteries are patent at the skull base, as are the anterior and middle cerebral arteries bilaterally. The vertebrobasilar system and posterior cerebral arteries are widely patent. The vertebral arteries are codominant. There is no aneurysm, high-grade stenosis, or focal vessel cut off seen throughout the intracranial circulation. Jugular veins: Patent bilaterally. Dural sinuses: Patent. Lung apices: There is mild emphysematous change. The imaged upper lobe lung parenchyma is otherwise clear. Soft tissues: The visualized pharyngeal soft tissues are normal in appearance noting angiographic phase technique. The oropharyngeal airway appears widely patent. The thyroid gland is mildly enlarged and heterogeneous. The salivary glands are normal in appearance. No cervical lymphadenopathy is seen. Skeletal structures: The skeletal structures are osteopenic. The calvarium appears intact. The cervical spine is maintained noting multilevel spondylosis. Orbits: The bony orbits are intact. Orbital contents are normal as visualized. Sinuses and mastoids: The paranasal sinuses are clear. The mastoid air cells are well pneumatized. IMPRESSION: 1. There is no hemorrhage, mass effect, or evidence of acute territorial ischemia by CT criteria. 2. Unremarkable CT angiogram of the brain. 3. Unremarkable CT angiogram of the neck. 4. Emphysema. ACT 112: Negative or not required by law. Electronically signed by: Pete Ivan M.D. 01/11/2024 3:24 PM Brain MRI 01/12/24 07:53 Brain MRI WITH AND WITHOUT CONTRAST HISTORY: diplopia, vertigo, r/o stroke TECHNIQUE: Multiplanar multisequence MRI of the brain was performed both before and after the intravenous administration of contrast. COMPARISON STUDY: Head CT 01/11/2024. FINDINGS: There are no areas of restricted diffusion to suggest acute infarction. The midline structures are intact. The paranasal sinuses are clear. The mastoid air cells are clear. The ventricles and sulci are within normal limits for age. There is no mass, hematoma, midline shift. The major vascular flow-voids at the skull base are well maintained. Postcontrast sequences show no areas of abnormal enhancement. IMPRESSION: No acute intracranial abnormality. ACT 112: Negative or not required by law. Electronically signed by: Gideon Lockhart M.D. 01/12/2024 10:54 AM Pending Results Patient Have Any Pending Studies at Discharge: No Discharge Instructions Given to Patient (Per Discharging Provider) Mr. Linder Jose M were admitted with vertigo and vision changes and an acute stroke was ruled out on head CT imaging as well as a brain MRI. Your symptoms could be related to your blood pressure which has been on the lower side. Per previous discussion, we are discontinuing your home chlorthalidone. We recommend that you continue with the losartan and atenolol medications that you are on. There was some concern that you had a lesion on one of the valves of the heart. You had a procedure done called a YAN which did not show that. Cardiology recommends a heart monitor after discharge and a 2-3 month followup with cardiology. Please keep close follow up with your primary care provider after discharge. Please do not hesitate to come back to the emergency room if your symptoms worsen or return. It was a pleasure taking care of you while you were here. Total Time Total Time Spent Total Time Spent (In Minutes): 75
--- NOTE | 2024-01-14 13:17 | Cardiology Progress Note ---
Date of Service January 14, 2024 Assessment & Plan (1) Mitral valve prolapse: Plan Results of transesophageal echocardiogram discussed with patient Distinct prolapse of P2 cusp of mitral valve with associated mild to moderate mitral insufficiency. No vegetation or mass No evidence of severe mitral insufficiency or pulmonary hypertension Recommended routine cardiology follow-up. Noted rare risk of mitral valve chordae rupture in association with prolapse should seek immediate emergency care with acute disc At risk for atrial arrhythmias. Would recommend event monitor post hospital discharge given presenting symptoms Admission and Anticipated Discharge Date Admission Date: January 13, 2024 Subjective Patient seen and examined, telemetry reviewed No cardiac complaints No arrhythmias on telemetry No difficulties post transesophageal echocardiogram Results & Data Vital Signs (Past 12 Hours) Vital Signs Temp Pulse Pulse Resp BP BP Pulse Ox 01/14/24 11:40 36.5 C 71 16 122/75 117/74 97 01/14/24 11:11 36.5 C 71 16 122/75 97 01/14/24 07:52 59 L 01/14/24 07:51 36.4 C L 72 16 146/81 H 96 01/14/24 04:05 36.3 C L 66 16 129/75 94 01/14/24 01:43 68 O2 Del Method 01/14/24 11:40 01/14/24 11:11 Room Air 01/14/24 07:52 01/14/24 07:51 Room Air 01/14/24 04:05 Room Air 01/14/24 01:43
== END 2024-01-14 12:15 | disposition home or self-care (01) | DRG 307 ==
LOC: ED 13:29 → EDINP 13:29 → SUATTDRO 17:38 → 2N 20:09 → SUATTDRO 01-13 16:49